=== PATIENT | female | born 1950 | race Caucasian/White ===

== ENCOUNTER 2016-05-02 12:29 | Inpatient (IN) | payer BC, OTHER ==
[~2016-05-02] VITALS: Ht 167.6 cm; Wt 56.7 kg
[2016-05-02] MEDS ORDERED: OXYC5TAB PO (12:47)
[2016-05-02] MEDS ORDERED: TOPI50TA16 PO (12:47)
[2016-05-02] MEDS ORDERED: VITATAB19 PO (12:47)
[2016-05-02] MEDS ORDERED: LEVO112T2 PO (12:47)
[2016-05-02] MEDS ORDERED: CHOL1TAB42 PO (12:47)
[2016-05-02] MEDS ORDERED: SUMA50TA15 PO (12:47)
[2016-05-02] MEDS ORDERED: B-COTAB18 PO (12:47)
[2016-05-02] MEDS ORDERED: FRCT/ PO (12:47)
[2016-05-02] MEDS ORDERED: PARO10TA3 PO (12:47)
[2016-05-02] MEDS ORDERED: VERA1TAB PO (12:47)
[2016-05-02] MEDS ORDERED: DOCO1CAP10 PO (12:47)
--- NOTE | 2016-05-02 13:22 | EMERGENCY ROOM VISIT NOTE ---
History First contact with patient: 13:01 Chief Complaint: SHORTNESS OF BREATH Stated Complaint: NAUSEA/ EDEMA Nursing Triage Summary: PT TO ROOM B12B FROM [facility] ON [address]. PT REPORTS THAT SHE HAS HAD INTERMITTENT SOB SINCE FEBRUARY. PT ALSO REPORTS INTERMITTENT NAUSEA. PT REPORTS SWELLING OF B/LE SINCE FEBRUARY. +2 PITTING EDEMA NOTED. PT HAS HISTORY OF CHF. PT DENIES CHEST PAIN. DENIES PAIN ELSEWHERE. History of Present Illness The patient is a 65 year old female who presents to the Emergency Room with complaints of shortness of breath and swelling of her lower extremities. The patient reports that she has had shortness of breath for the past 2 months. She states that she becomes short of breath with exertion or when she becomes upset. She initially thought this may be due to panic attacks, as she does have a history of panic attacks. She states that over the past 2 weeks, she has developed swelling in both of her lower legs. She reports she also has had nausea for the past few weeks intermittently. She went to a walk-in clinic today due to her symptoms and was sent here for evaluation. The patient states she has had one episode of CHF approximately 15 years ago but states that this was due to a thyroid issue, and when she was put on thyroid medication this resolved completely. She denies history of COPD or asthma. She denies any cardiac history or history of hypertension. She denies chest pain, abdominal pain, diarrhea, fevers, headache, neck pain or blood in her stools. Review of Systems A complete 10-point Review of Systems was discussed with the patient, with pertinent positives and negatives listed in the History of Present Illness. All remaining Review of Systems questions can be considered negative unless otherwise specified. Past Medical/Surgical History Medical Problems: (1) Acute CHF (congestive heart failure) (2) NSTEMI, initial episode of care Social History Smoking Status: Former Smoker Current/Historical Medications Scheduled B-Complex Vitamins (Vitamin B Complex), 1 TAB PO DAILY Cholecalciferol (Vitamin D), 5,000 UNITS PO DAILY Docosahexaenoic Acid (Dha), 200 MG PO DAILY Levothyroxine Sodium (Synthroid), 225 MCG PO DAILY Paroxetine HCl (Paroxetine), 10 MG PO PM Topiramate (Topamax), 50 MG PO QPM Verapamil (Calan), 180 MG PO HS Vitamin A-Beta Carotene (Vitamin A), 1 TAB PO DAILY Scheduled PRN Acetamin/Butalbital/Caffeine (Fioricet), 1 TAB PO UD PRN for Migraine Oxycodone-Ibuprofen 5/400MG (Combunox), 1 TAB PO Q6H PRN for Pain Sumatriptan Succinate (Imitrex), 50 MG PO UD PRN for Migraine Allergies Coded Allergies: Latex1 -Allergic Contact Dermititis (Unverified Adverse Reaction, Intermediate, RASH, 05/02/16) Physical Exam Vital Signs Date Time Temp Pulse Resp B/P Pulse Ox O2 Delivery O2 Flow Rate FiO2 05/02/16 14:44 95 20 124/97 98 05/02/16 12:56 96 Nasal Cannula 2.0 05/02/16 12:49 95 05/02/16 12:40 93 Room Air 05/02/16 12:40 37.0 90 20 124/97 93 Room Air 05/02/16 12:40 93 Room Air Physical Exam VITALS: Vitals are noted on the nurse's note and reviewed by myself. Vital signs stable. GENERAL: This is a 65-year-old female, in no acute distress, nondiaphoretic, well-developed well-nourished. SKIN: Capillary reflex less than 2 seconds. HEENT: Normocephalic. PERRLA. EOMI. Nares patent. Mucous membranes moist. Neck is supple without nuchal rigidity. HEART: Regular rate and rhythm without murmurs gallops or rubs. LUNGS: Decreased breath sounds throughout. Mild wheezing bilaterally. ABDOMEN: Positive bowel sounds x 4. Soft, nontender to palpation. MUSCULOSKELETAL: 2+ pitting edema bilaterally. NEURO: Patient was alert and oriented to person place and time. Medical Decision & Procedures ER Provider Diagnostic Interpretation: SINGLE VIEW CHEST FINDINGS: An AP, portable, upright chest radiograph is obtained. No prior studies are available for comparison at the time of dictation. The examination is degraded by portable technique and patient rotation. The heart is enlarged and there is atherosclerotic calcification of the thoracic aorta. There is pulmonary vascular congestion and mild interstitial edema. Layering pleural effusions are identified with bibasilar consolidation. No pneumothorax is seen. The skeletal structures are osteopenic. The bony thorax is grossly intact. A benign-appearing sclerotic lesion is present in the right humeral head and neck. IMPRESSION: 1. Cardiomegaly with evidence of congestive failure and interstitial edema. 2. Layering pleural effusions and bibasilar consolidation. This likely represents atelectasis. Clinical correlation will be required. Laboratory Results 05/02/16 13:46 Red Blood Count 4.42, Mean Corpuscular Volume 90.0, Mean Corpuscular Hemoglobin 29.9, Mean Corpuscular Hemoglobin Concent 33.2, Mean Platelet Volume 10.9, Neutrophils (%) (Auto) 83.5, Lymphocytes (%) (Auto) 7.8, Monocytes (%) (Auto) 8.2, Eosinophils (%) (Auto) 0.1, Basophils (%) (Auto) 0.1, Neutrophils # (Auto) 12.23, Lymphocytes # (Auto) 1.15, Monocytes # (Auto) 1.21, Eosinophils # (Auto) 0.01, Basophils # (Auto) 0.02 05/02/16 13:46 Test 05/02/16 13:46 05/02/16 15:07 05/02/16 16:11 White Blood Count 14.67 K/uL (4.8-10.8) Red Blood Count 4.42 M/uL (4.2-5.4) Hemoglobin 13.2 g/dL (12.0-16.0) Hematocrit 39.8 % (37-47) Mean Corpuscular Volume 90.0 fL (80-100) Mean Corpuscular Hemoglobin 29.9 pg (25-34) Mean Corpuscular Hemoglobin Concent 33.2 g/dl (32-36) Platelet Count 204 K/uL (130-400) Mean Platelet Volume 10.9 fL (7.4-10.4) Neutrophils (%) (Auto) 83.5 % Lymphocytes (%) (Auto) 7.8 % Monocytes (%) (Auto) 8.2 % Eosinophils (%) (Auto) 0.1 % Basophils (%) (Auto) 0.1 % Neutrophils # (Auto) 12.23 K/uL (1.4-6.5) Lymphocytes # (Auto) 1.15 K/uL (1.2-3.4) Monocytes # (Auto) 1.21 K/uL (0.11-0.59) Eosinophils # (Auto) 0.01 K/uL (0-0.5) Basophils # (Auto) 0.02 K/uL (0-0.2) RDW Standard Deviation 51.0 fL (36.4-46.3) RDW Coefficient of Variation 15.5 % (11.5-14.5) Immature Granulocyte % (Auto) 0.3 % Immature Granulocyte # (Auto) 0.05 K/uL (0.00-0.02) Prothrombin Time 13.6 SECONDS (9.0-12.0) Prothromb Time International Ratio 1.3 (0.9-1.1) Activated Partial Thromboplast Time 26.6 SECONDS (21.0-31.0) Partial Thromboplastin Ratio 1.0 Anion Gap 11.0 mmol/L (3-11) Est Creatinine Clear Calc Drug Dose 46.9 ml/min Estimated GFR () 68.5 Estimated GFR (Non- 59.1 BUN/Creatinine Ratio 21.7 (10-20) Calcium Level 9.3 mg/dl (8.5-10.1) Magnesium Level 1.7 mg/dl (1.8-2.4) Total Bilirubin 0.9 mg/dl (0.2-1) Aspartate Amino Transf (AST/SGOT) 24 U/L (15-37) Alanine Aminotransferase (ALT/SGPT) 43 U/L (12-78) Alkaline Phosphatase 98 U/L (45-117) Pro-B-Type Natriuretic Peptide > 74816 pg/ml (0-900) Total Protein 6.4 gm/dl (6.4-8.2) Albumin 3.1 gm/dl (3.4-5.0) Globulin 3.3 gm/dl (2.5-4.0) Albumin/Globulin Ratio 0.9 (0.9-2) Thyroid Stimulating Hormone (TSH) 1.300 uIu/ml (0.300-4.500) Free Thyroxine 1.18 ng/dl (0.80-1.60) Creatine Kinase MB Ratio (0-3.0) Medications Administered Medications (Trade) Dose Ordered Sig/Joann Route Start Time Stop Time Status Last Admin Dose Admin Potassium Chloride (Klor-Con M10) 40 meq STK-MED ONCE .ROUTE 05/02/16 15:45 05/02/16 15:47 DC 05/02/16 15:59 40 MEQ Magnesium Sulfate (Magnesium Sulfate) 1 gm STK-MED ONCE .ROUTE 05/02/16 15:46 05/02/16 15:47 DC 05/02/16 15:58 1 GM Medical Decision Differential diagnosis includes pneumonia, upper respiratory infection, congestive heart failure, COPD, acute coronary syndrome, among others. 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 The patient was evaluated as above. Labs were drawn and IV access was obtained. Imaging studies were performed and read by radiology as above. The patient was reassessed multiple times during their stay in the emergency department and remained in stable condition. The patient is a 65-year-old female who presents today complaining of shortness of breath and lower extremity edema. The patient's oxygen saturations were dropping to 80% on room air and she was placed on 2 L of oxygen. The patient does not use any oxygen at home. Her presentation is concerning for congestive heart failure. 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 Labs revealed a leukocytosis of unclear significance. No concerning anemia. The patient is hypokalemic. Her BNP is significantly elevated and her troponin is elevated as well. EKG was performed and does not reveal any acute ischemic changes. Chest x-ray showed evidence of congestive heart failure. The patient will be admitted for further evaluation. Case was discussed with Dr. Neal, ED attending physician, who agreed with my assessment and treatment plan. Case was discussed with the [facility] hospitalist, who agreed to evaluate the patient. Impression Primary Impression: Congestive heart failure Additional Impression: Hypokalemia Departure Information Referrals Manuelito Marie M.D. (PCP) Patient Instructions My [facility] Problem Qualifiers Primary Impression: Congestive heart failure Congestive heart failure type: unspecified congestive heart failure type Congestive heart failure chronicity: acute Qualified Codes: I50.9 - Heart failure, unspecified
--- NOTE | 2016-05-02 13:31 | DIAGNOSTIC IMAGING REPORT ---
SINGLE VIEW CHEST CLINICAL HISTORY: Dyspnea. Lower extremity edema. FINDINGS: An AP, portable, upright chest radiograph is obtained. No prior studies are available for comparison at the time of dictation. The examination is degraded by portable technique and patient rotation. The heart is enlarged and there is atherosclerotic calcification of the thoracic aorta. There is pulmonary vascular congestion and mild interstitial edema. Layering pleural effusions are identified with bibasilar consolidation. No pneumothorax is seen. The skeletal structures are osteopenic. The bony thorax is grossly intact. A benign-appearing sclerotic lesion is present in the right humeral head and neck. IMPRESSION: 1. Cardiomegaly with evidence of congestive failure and interstitial edema. 2. Layering pleural effusions and bibasilar consolidation. This likely represents atelectasis. Clinical correlation will be required. Electronically signed by: Panfilo Lugo M.D. 05/02/2016 1:30 PM Dictated Date/Time: 05/02/2016 1:29 PM
[2016-05-02 13:55] LABS: BASO % 0.1 %; BASO ABS # 0.02 K/uL (0-0.2); COMPLETE YES; EOS % 0.1 %; HEMATOCRIT 39.8 % (37-47); IG% 0.3 %; LYMPH % 7.8 %; LYMPH ABS # 1.15 K/uL (1.2-3.4); MEAN CORPUSCULAR HEMOGLOBIN 29.9 pg (25-34); MEAN CORPUSCULAR HGB CONC 33.2 g/dl (32-36); MEAN PLATELET VOLUME 10.9 fL (7.4-10.4); MONO % 8.2 %; NEUT % 83.5 %; PLATELET COUNT 204 K/uL (130-400); RED BLOOD COUNT 4.42 M/uL (4.2-5.4); WHITE BLOOD COUNT 14.67 K/uL (4.8-10.8)
[2016-05-02 14:09] LABS: INR 1.3 (0.9-1.1); PROTHROMBIN TIME (PATIENT) 13.6 SECONDS (9.0-12.0)
[2016-05-02 14:13] LABS: ALT/SGPT 43 U/L (12-78); AST/SGOT 24 U/L (15-37); BLOOD UREA NITROGEN 22 mg/dl (7-18); BUN/CREATININE RATIO 21.7 (10-20); CALCIUM 9.3 mg/dl (8.5-10.1); CARBON DIOXIDE 23 mmol/L (21-32); CHLORIDE 104 mmol/L (98-107); GLUCOSE 104 mg/dl (70-99); MAGNESIUM 1.7 mg/dl (1.8-2.4); POTASSIUM 3.1 mmol/L (3.5-5.1); SODIUM 138 mmol/L (136-145)
[2016-05-02 14:42] LABS: ALB/GLOB RATIO 0.9 (0.9-2); ALKALINE PHOSPHATASE 98 U/L (45-117); CKMB/CK RATIO 4.1 (0-3.0)
[2016-05-02] MEDS ORDERED: POTASSIUM CHLORIDE 10 MEQ TABCR PO STA (15:07)
[2016-05-02] MEDS ORDERED: MAGNESIUM SULFATE 1GM / D5W 1 GM in PREMIXED IN D5W 100 ML IV STA (15:07)
[2016-05-02] MEDS ORDERED: POTASSIUM CHLORIDE 10 MEQ TABCR ONE (15:45)
[2016-05-02] MEDS ORDERED: MAGNESIUM SULFATE 1GM / D5W 1 GM BAG ONE (15:46)
[2016-05-02] MEDS ORDERED: ZOLPIDEM TARTRATE 5 MG TAB PO PRN ×2 (16:30→16:45)
[2016-05-02] MEDS ORDERED: BUTALBITAL/ACETAMIN/CAFFEINE TAB PO PRN (16:30)
[2016-05-02] MEDS ORDERED: SUMATRIPTAN SUCCINATE 50 MG TAB PO PRN (16:30)
[2016-05-02] MEDS ORDERED: MoRPHine SULFATE 2 MG/ML CARP IV PRN (16:45)
[2016-05-02] MEDS ORDERED: PROMETHAZINE HCL INJ 12.5 MG in SODIUM CHLORIDE 0.9% 50ML 50 ML IV PRN (16:45)
[2016-05-02] MEDS ORDERED: LORAZEPAM 2 MG/ML 1 ML VIAL IV PRN ×2 (16:45)
[2016-05-02] MEDS ORDERED: MAGNESIUM HYDROXIDE SUSP 30 ML UDC PO PRN (16:45)
[2016-05-02] MEDS ORDERED: BISACODYL 10 MG SUPP PR PRN (16:45)
[2016-05-02] MEDS ORDERED: DiphenhydrAMINE HCL 50 MG/ML VIAL IV PRN (16:45)
[2016-05-02] MEDS ORDERED: MoRPHine SULFATE 4 MG/ML 1 ML CARP\\VIAL IV PRN (16:45)
[2016-05-02 16:51] LABS: CKMB/CK RATIO 4.8 (0-3.0)
--- NOTE | 2016-05-02 16:51 | Medical Student: [facility] ---
Med Student History & Physical Date & Time of Service: May 02, 2016 at 16:14 Chief Complaint: Nausea and Leg Swelling Primary Care Physician: Manuelito Marie M.D. History of Present Illness Source: patient 65y/o female presents with shortness of breath that began about two months ago and has been worsening in recent weeks. The patient states that the shortness of breath is fluctuating in nature, and she does get spells lasting from 20seconds to a few minutes that are more significant. Triggers for these spells include bending over and exertion. The patient does state that she has been sleeping with more pillows at night due to feeling more short of breath when she lies flat. In the past two weeks, the patient began to have foot and lower leg swelling. She states that it has been stable and has not gotten much worse from the initial few days of presentation. The patient has also had multiple bouts of nausea which has been making her eat less. She did have some episodes of vomiting two weeks ago but has had none since. Occasionally, the patient has been having some abdominal pain located in the middle of her abdomen. The patient denies specific chest pain. 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 However, she has not had any issues with heart failure since. The patient has not been taking her synthroid on a regular basis in recent weeks. The patient lives alone with her two dogs and states that she has had decreasing ability to get around and decreased social support. The patient states that she has had increased stress in her life recently due to feeling sick and not being able to take care of her dogs like she would want to. She states that the periods of shortness of breath feel like panic attacks that she has had in the past. The patient has had depressed mood in recent weeks that she states is due to her worsening health. She denies thoughts of wanting to hurt herself. Past Medical/Surgical History 1. Retinitis Pigmentosa 2. Hypothyroid 3. Hypothyroid myxedema 4. Migraines 5. Depression/anxiety Family History Mother: cancer (colon) Social History Smoking Status: Former Smoker (quit three years ago) Smokeless Tobacco Use: No Alcohol Use: none Drug Use: none Housing status: lives alone (two dogs) Allergies Coded Allergies: Latex1 -Allergic Contact Dermititis (Unverified Adverse Reaction, Intermediate, RASH, 05/02/16) Medications Acetamin/Butalbital/Caffeine (Fioricet), 1 TAB PO UD PRN for Migraine B-Complex Vitamins (Vitamin B Complex), 1 TAB PO DAILY Cholecalciferol (Vitamin D), 5,000 UNITS PO DAILY Docosahexaenoic Acid (Dha), 200 MG PO DAILY Levothyroxine Sodium (Synthroid), 225 MCG PO DAILY Oxycodone-Ibuprofen 5/400MG (Combunox), 1 TAB PO Q6H PRN for Pain Paroxetine HCl (Paroxetine), 10 MG PO PM Sumatriptan Succinate (Imitrex), 50 MG PO UD PRN for Migraine Topiramate (Topamax), 50 MG PO QPM Verapamil (Calan), 180 MG PO HS Vitamin A-Beta Carotene (Vitamin A), 1 TAB PO DAILY Review of Systems Constitutional: + chills (fever and chills during episodes of Shortness of breath), + fatigue, + weakness Eyes: No eye pain, No redness ENT: No hearing loss, No sore throat Respiratory: + dyspnea at rest, + dyspnea on exertion, + shortness of breath, + wheezing Cardiovascular: + edema, + palpitations, No chest pain Abdomen: + nausea, + pain (ocassional, middle of abdomen), No constipation, No diarrhea Neurologic: No memory loss, No paralysis Psychiatric: + anxiety, + depression symptoms, No substance abuse Integumentary: No itch, No new/changing skin lesions, No rash Physical Exam Vital Signs (24 Hours) Date Time Temp Pulse Resp B/P Pulse Ox O2 Delivery O2 Flow Rate FiO2 05/02/16 14:44 95 20 124/97 98 05/02/16 12:56 96 Nasal Cannula 2.0 05/02/16 12:49 95 05/02/16 12:40 93 Room Air 05/02/16 12:40 37.0 90 20 124/97 93 Room Air 05/02/16 12:40 93 Room Air Head: normocephalic, atraumatic Eyes: normal inspection, EOMI Respiratory/Chest: chest non-tender, lungs clear, + respiratory distress (mild , able to speak in full sentences), + decreased breath sounds Cardiovascular: no murmur, + tachycardia, + pertinent finding (3+ pitting edema , from feet up to knees) Abdomen/GI: normal bowel sounds, non tender, soft, no organomegaly Back: normal inspection Extremities/Musculoskelatal: no calf tenderness, + pedal edema (3+ pitting edema bilateral) Neurologic/Psych: no motor/sensory deficits, alert (slightly anxious in room, tearful when talking about her dogs), oriented x 3 Skin: normal color, warm/dry, no rash Diagnostics Laboratory Results Results Past 24 Hours Test 05/02/16 13:46 05/02/16 15:07 Range/Units White Blood Count 14.67 4.8-10.8 K/uL Red Blood Count 4.42 4.2-5.4 M/uL Hemoglobin 13.2 12.0-16.0 g/dL Hematocrit 39.8 37-47 % Mean Corpuscular Volume 90.0 80-100 fL Mean Corpuscular Hemoglobin 29.9 25-34 pg Mean Corpuscular Hemoglobin Concent 33.2 32-36 g/dl Platelet Count 204 130-400 K/uL Mean Platelet Volume 10.9 7.4-10.4 fL Neutrophils (%) (Auto) 83.5 % Lymphocytes (%) (Auto) 7.8 % Monocytes (%) (Auto) 8.2 % Eosinophils (%) (Auto) 0.1 % Basophils (%) (Auto) 0.1 % Neutrophils # (Auto) 12.23 1.4-6.5 K/uL Lymphocytes # (Auto) 1.15 1.2-3.4 K/uL Monocytes # (Auto) 1.21 0.11-0.59 K/uL Eosinophils # (Auto) 0.01 0-0.5 K/uL Basophils # (Auto) 0.02 0-0.2 K/uL RDW Standard Deviation 51.0 36.4-46.3 fL RDW Coefficient of Variation 15.5 11.5-14.5 % Immature Granulocyte % (Auto) 0.3 % Immature Granulocyte # (Auto) 0.05 0.00-0.02 K/uL Prothrombin Time 13.6 9.0-12.0 SECONDS Prothromb Time International Ratio 1.3 0.9-1.1 Activated Partial Thromboplast Time 26.6 21.0-31.0 SECONDS Partial Thromboplastin Ratio 1.0 Sodium Level 138 136-145 mmol/L Potassium Level 3.1 3.5-5.1 mmol/L Chloride Level 104 98-107 mmol/L Carbon Dioxide Level 23 21-32 mmol/L Anion Gap 11.0 3-11 mmol/L Blood Urea Nitrogen 22 7-18 mg/dl Creatinine 1.00 0.60-1.20 mg/dl Est Creatinine Clear Calc Drug Dose 46.9 ml/min Estimated GFR () 68.5 Estimated GFR (Non- 59.1 BUN/Creatinine Ratio 21.7 10-20 Random Glucose 104 70-99 mg/dl Calcium Level 9.3 8.5-10.1 mg/dl Magnesium Level 1.7 1.8-2.4 mg/dl Total Bilirubin 0.9 0.2-1 mg/dl Aspartate Amino Transf (AST/SGOT) 24 15-37 U/L Alanine Aminotransferase (ALT/SGPT) 43 12-78 U/L Alkaline Phosphatase 98 45-117 U/L Total Creatine Kinase 34 26-192 U/L Creatine Kinase MB 1.4 0.5-3.6 ng/ml Creatine Kinase MB Ratio 4.1 0-3.0 Troponin I 0.145 0-0.045 ng/ml Pro-B-Type Natriuretic Peptide > 33042 0-900 pg/ml Total Protein 6.4 6.4-8.2 gm/dl Albumin 3.1 3.4-5.0 gm/dl Globulin 3.3 2.5-4.0 gm/dl Albumin/Globulin Ratio 0.9 0.9-2 Thyroid Stimulating Hormone (TSH) 1.300 0.300-4.500 uIu/ml Free Thyroxine 1.18 0.80-1.60 ng/dl Diagnostic Radiology CXR: FINDINGS: An AP, portable, upright chest radiograph is obtained. No prior studies are available for comparison at the time of dictation. The examination is degraded by portable technique and patient rotation. The heart is enlarged and there is atherosclerotic calcification of the thoracic aorta. There is pulmonary vascular congestion and mild interstitial edema. Layering pleural effusions are identified with bibasilar consolidation. No pneumothorax is seen. The skeletal structures are osteopenic. The bony thorax is grossly intact. A benign-appearing sclerotic lesion is present in the right humeral head and neck. IMPRESSION: 1. Cardiomegaly with evidence of congestive failure and interstitial edema. 2. Layering pleural effusions and bibasilar consolidation. This likely represents atelectasis. Clinical correlation will be required. Impression Assessment and Plan DDx: Includes NSTEMI, PE, Aortic dissection, COPD, CHF exacerbation, hypothyroid myxedema coma, Pneumonia, Viral URI, Viral gastroenteritis Assessment and Plan: Given the patients recent history of leg swelling, SOB, and elevated BNP, will treat the patient for congestive heart failure. Will get an echo, serial cardiac enzymes, TSH and T4 to determine potential etiologies of the CHF. 1. Congestive heart failure: Administer Lasix IV Q6Hr and 2L O2 NC 2. Elevated troponin, abnormal ECG, potential NSTEMI: Ordered echo. Cardiology consulted. Obtain serial cardiac enzymes and repeat ECGs 3. Hypokalemia: Signs of QT elongation on ecg. Administered 40meq of potassium and 1gm of magnesium. Continue to monitor lab values 4. Hypothyroid: Obtain TSH and T4. Administer Synthroid 224mcg PO. 5. Nausea: Administer Odansetron 4mg prn for nausea 6. Anxiety/Depression: Continue with Paroxetine 10mg PO QPM. Administer Lorazepam 0.5mg IV PRN for anxiety 7. Migraines: Sumatriptan 50 mg PO prn, Topiramate 50mg daily prn, Verapimil 180mg
[2016-05-02 17:07] VITALS: BP 122/90; PULSE 91; TEMP 36.9; O2SAT 95; Ht 167.6 cm; Wt 56.7 kg
[2016-05-02] MEDS: POTASSIUM CHLR 10 MEQ / WTR 10 MEQ in PREMIXED WATER 100 ML IV SCH ×2 (18:42→20:36)
[2016-05-02] MEDS: ONDANSETRON INJ 2 MG/ML 2 ML VIAL IV PRN (19:31)
[2016-05-02] MEDS: ALBUMIN 25% 50 ML with FUROSEMIDE INJ 40 MG IV SCH ×2 (19:34)
[2016-05-02] MEDS: NITROGLYCERIN OINT 2% 1GM PACKET EXT SCH (19:34)
[2016-05-02 19:43] VITALS: BP 107/75; PULSE 97; TEMP 37.3; O2SAT 95
[2016-05-02 20:00] VITALS: O2SAT 95
[2016-05-02] MEDS: DOCUSATE SODIUM 100 MG CAP PO SCH (20:45)
[2016-05-02] MEDS: TOPIRAMATE 25 MG TAB PO SCH (20:45)
[2016-05-02] MEDS: PAROXETINE 20 MG TAB PO SCH (20:45)
[2016-05-02] MEDS ORDERED: VERAPAMIL HCL 180 MG TABCR PO SCH (21:00)
[2016-05-02] MEDS ORDERED: PNEUMOCOCCAL POLYSACCHARIDES 25 MCG/0.5 ML VIAL/SYR IM. ONE (23:15)
[2016-05-02] MEDS ORDERED: PNEUMOCOCCAL ADMINISTRATION CHARGE ONE (23:15)
[2016-05-02 23:46] VITALS: BP 107/76; PULSE 91; TEMP 36.4; O2SAT 93
[2016-05-03] VITALS (12 sets, daily range): BP systolic 90–142; BP diastolic 60–76; PULSE 69–81; TEMP 36.4–36.8; O2SAT 92–98
[2016-05-03] MEDS: ALBUMIN 25% 50 ML with FUROSEMIDE INJ 40 MG IV SCH ×6 (00:28→12:10)
[2016-05-03] MEDS: NITROGLYCERIN OINT 2% 1GM PACKET EXT SCH ×4 (00:28→17:15)
[2016-05-03 00:36] LABS: URINE APPEARANCE CLEAR (CLEAR); URINE BILIRUBIN NEG (NEG); URINE COLOR YELLOW; URINE EPITHELIAL CELL AUTO 0-5 /lpf (0-5); URINE NITRITE POS (NEG); URINE SPECIFIC GRAVITY 1.005 (1.000-1.030); UROBILINOGEN NEG (NEG); ZZUR CULT IF INDIC CLEAN CATCH YES
[2016-05-03 00:39] LABS: MANUAL MICROSCOPIC REQUIRED? NO; REVIEW REQ? NO
--- NOTE | 2016-05-03 03:34 | History and Physical ---
History & Physical Date & Time of Service: May 03, 2016 at 03:21 Chief Complaint: Acute Chf, Nstemi Primary Care Physician: Manuelito Marie M.D. History of Present Illness Source: patient The patient is a 65-year-old female who presents emergency department with shortness of breath and worsening swelling of her lower extremities over the past 2 months but in particular over the past few days. She has a history of panic attacks and thought her shortness of breath might of been related to that. She's also had nausea off and on over the past few weeks. She went to a walk-in clinic today, and was referred to emergency department for assessment. Most significant issue with fluid in the past was associated with what sounds like thyroid myxedema approximately 15 years ago which resolved when she started her on thyroid medication. She reports over the past 2 weeks she has been unable to take medications including her thyroid due to nausea. Social History Smoking Status: Never Smoker Smokeless Tobacco Use: No Alcohol Use: none Drug Use: none Marital Status: single Housing status: lives alone (two dogs) Occupational Status: retired Multi-Drug Resistant Organisms History of MDRO: No Allergies Coded Allergies: Latex1 -Allergic Contact Dermititis (Unverified Adverse Reaction, Intermediate, RASH, 05/02/16) Home Medications Scheduled B-Complex Vitamins (Vitamin B Complex), 1 TAB PO DAILY Cholecalciferol (Vitamin D), 5,000 UNITS PO DAILY Docosahexaenoic Acid (Dha), 200 MG PO DAILY Levothyroxine Sodium (Synthroid), 225 MCG PO DAILY Paroxetine HCl (Paroxetine), 10 MG PO PM Topiramate (Topamax), 50 MG PO QPM Verapamil (Calan), 180 MG PO HS Vitamin A-Beta Carotene (Vitamin A), 1 TAB PO DAILY Scheduled PRN Acetamin/Butalbital/Caffeine (Fioricet), 1 TAB PO UD PRN for Migraine Oxycodone-Ibuprofen 5/400MG (Combunox), 1 TAB PO Q6H PRN for Pain Sumatriptan Succinate (Imitrex), 50 MG PO UD PRN for Migraine Review of Systems The patient denies vision change, hearing change, sore throat, fevers, chills, sweats, vomiting, abdominal pain, pelvic pain, blood in urine or stool, dysuria , urinary frequency or urgency, memory loss, rash, abnormal bruising or bleeding, imbalance, focal weakness, night sweats, or allergy symptoms. The review of systems is otherwise negative other than for that already noted above, and at least 10 systems have been reviewed. Physical Exam Vital Signs Date Time Temp Pulse Resp B/P Pulse Ox O2 Delivery O2 Flow Rate FiO2 05/02/16 23:46 36.4 91 19 107/76 93 Nasal Cannula 2.0 05/02/16 20:00 95 Room Air 2.0 05/02/16 19:43 37.3 97 16 107/75 95 05/02/16 17:07 36.9 91 20 122/90 95 Room Air 05/02/16 14:44 95 20 124/97 98 05/02/16 12:56 96 Nasal Cannula 2.0 05/02/16 12:49 95 05/02/16 12:40 93 Room Air 05/02/16 12:40 37.0 90 20 124/97 93 Room Air 05/02/16 12:40 93 Room Air The patient is awake, alert and oriented 3, looks chronically ill and fatigued , lying in bed and in no acute distress. HEENT--PERRL, EOMI, mucous membranes and oropharynx dry. Neck--supple, no JVD or bruits, thyroid normal, trachea midline, no adenopathy. Heart--normal S1 and S2, no extra beats, no murmurs, rubs or gallops. Lungs--clear bilaterally with good air movement, no respiratory distress, no accessory muscle use. Abdomen--normal bowel sounds and soft, nontender and nondistended, no hernias or masses, no organomegaly. Extremities--no cyanosis, clubbing. There is bilaterally 4+ pitting edema in lower extremities, and 1+ pitting edema in upper extremities. There are good distal pulses b/l. Dermatologic--normal skin turgor, normal color, warm and dry, no abnormal lymph nodes, no rash. Neurologic--cranial nerves II through XII grossly intact, motor and sensory examination normal. Rheumatologic--decreased range of motion due to edema. Psychiatric--normal affect. Diagnostics Laboratory Results Results Past 24 Hours Test 05/02/16 13:46 05/02/16 16:11 05/02/16 23:18 05/02/16 23:50 Range/Units White Blood Count 14.67 4.8-10.8 K/uL Red Blood Count 4.42 4.2-5.4 M/uL Hemoglobin 13.2 12.0-16.0 g/dL Hematocrit 39.8 37-47 % Mean Corpuscular Volume 90.0 80-100 fL Mean Corpuscular Hemoglobin 29.9 25-34 pg Mean Corpuscular Hemoglobin Concent 33.2 32-36 g/dl Platelet Count 204 130-400 K/uL Mean Platelet Volume 10.9 7.4-10.4 fL Neutrophils (%) (Auto) 83.5 % Lymphocytes (%) (Auto) 7.8 % Monocytes (%) (Auto) 8.2 % Eosinophils (%) (Auto) 0.1 % Basophils (%) (Auto) 0.1 % Neutrophils # (Auto) 12.23 1.4-6.5 K/uL Lymphocytes # (Auto) 1.15 1.2-3.4 K/uL Monocytes # (Auto) 1.21 0.11-0.59 K/uL Eosinophils # (Auto) 0.01 0-0.5 K/uL Basophils # (Auto) 0.02 0-0.2 K/uL RDW Standard Deviation 51.0 36.4-46.3 fL RDW Coefficient of Variation 15.5 11.5-14.5 % Immature Granulocyte % (Auto) 0.3 % Immature Granulocyte # (Auto) 0.05 0.00-0.02 K/uL Prothrombin Time 13.6 9.0-12.0 SECONDS Prothromb Time International Ratio 1.3 0.9-1.1 Activated Partial Thromboplast Time 26.6 21.0-31.0 SECONDS Partial Thromboplastin Ratio 1.0 Sodium Level 138 136-145 mmol/L Potassium Level 3.1 3.5-5.1 mmol/L Chloride Level 104 98-107 mmol/L Carbon Dioxide Level 23 21-32 mmol/L Anion Gap 11.0 3-11 mmol/L Blood Urea Nitrogen 22 7-18 mg/dl Creatinine 1.00 0.60-1.20 mg/dl Est Creatinine Clear Calc Drug Dose 46.9 ml/min Estimated GFR () 68.5 Estimated GFR (Non- 59.1 BUN/Creatinine Ratio 21.7 10-20 Random Glucose 104 70-99 mg/dl Calcium Level 9.3 8.5-10.1 mg/dl Magnesium Level 1.7 1.8-2.4 mg/dl Total Bilirubin 0.9 0.2-1 mg/dl Aspartate Amino Transf (AST/SGOT) 24 15-37 U/L Alanine Aminotransferase (ALT/SGPT) 43 12-78 U/L Alkaline Phosphatase 98 45-117 U/L Total Creatine Kinase 34 31 40 26-192 U/L Creatine Kinase MB 1.4 1.5 0.8 0.5-3.6 ng/ml Creatine Kinase MB Ratio 4.1 4.8 2.0 0-3.0 Troponin I 0.145 0.157 0.155 0-0.045 ng/ml Pro-B-Type Natriuretic Peptide > 88889 0-900 pg/ml Total Protein 6.4 6.4-8.2 gm/dl Albumin 3.1 3.4-5.0 gm/dl Globulin 3.3 2.5-4.0 gm/dl Albumin/Globulin Ratio 0.9 0.9-2 Thyroid Stimulating Hormone (TSH) 1.300 0.300-4.500 uIu/ml Free Thyroxine 1.18 0.80-1.60 ng/dl Urine Color YELLOW Urine Appearance CLEAR CLEAR Urine pH 5.0 4.5-7.5 Urine Specific [place] 1.005 1.000-1.030 Urine Protein 1+ NEG Urine Glucose (UA) NEG NEG Urine Ketones NEG NEG Urine Occult Blood 1+ NEG Urine Nitrite POS NEG Urine Bilirubin NEG NEG Urine Urobilinogen NEG NEG Urine Leukocyte Esterase TRACE NEG Urine WBC (Auto) 1-5 0-5 /hpf Urine RBC (Auto) 0-4 0-4 /hpf Urine Hyaline Casts (Auto) 1-5 0-5 /lpf Urine Epithelial Cells (Auto) 0-5 0-5 /lpf Urine Bacteria (Auto) 4+ NEG Microbiology Results 05/02/16 Urine Culture, Received Pending Diagnostic Radiology Patient Name: WHITNEY MOONEY Unit Number: [id number] Dictated: 05/02/161328 Transcribed: 05/02/161328 EV Printed Date/Time: [~ rep prt dt]/[~ rep prt tm] [~ rep ct labl] - [~ rep ct ivnm] [facility] [place] [place] [address] Dictated: 05/02/16 1329 Transcribed: 05/02/16 1329 EV Printed Date/Time: [~ rep prt dt]/[~ rep prt tm] [~ rep ct labl] - [~ rep ct ivnm] SINGLE VIEW CHEST CLINICAL HISTORY: Dyspnea. Lower extremity edema. FINDINGS: An AP, portable, upright chest radiograph is obtained. No prior studies are available for comparison at the time of dictation. The examination is degraded by portable technique and patient rotation. The heart is enlarged and there is atherosclerotic calcification of the thoracic aorta. There is pulmonary vascular congestion and mild interstitial edema. Layering pleural effusions are identified with bibasilar consolidation. No pneumothorax is seen. The skeletal structures are osteopenic. The bony thorax is grossly intact. A benign-appearing sclerotic lesion is present in the right humeral head and neck. IMPRESSION: 1. Cardiomegaly with evidence of congestive failure and interstitial edema. 2. Layering pleural effusions and bibasilar consolidation. This likely represents atelectasis. Clinical correlation will be required. Electronically signed by: Panfilo Lugo M.D. 05/02/2016 1:30 PM Dictated Date/Time: 05/02/2016 1:29 PM The status of this report is Signed. Draft = Not yet reviewed or approved by Radiologist. Signed = Reviewed and approved by Radiologist. <AttendingPhy></AttendingPhy> <FamilyPhy>Manuelito Marie M.D.</FamilyPhy> < PrimaryPhy>Manuelito Marie M.D.</PrimaryPhy> <UnitNumber>[id number]</ UnitNumber> <VisitNumber>[id number]</VisitNumber> <PatientName>WHITNEY MOONEY</PatientName> <DateOfBirth>1950</DateOfBirth> <Location>C.EDB< /Location> <ServiceDate>05/02/16</ServiceDate> <MNE>ESINDI</MNE> <OrderingPhy> Jes Kapoor PA-C</OrderingPhy> <OrderingPhyMNE>f rep ord dr nichole</OrderingPhyMNE > <DictatingPhyMNE>f rep dict dr nichole</DictatingPhyMNE> <CCListMNE>f rep ct dayanara</ CCListMNE> <AdmittingPhyMNE>f pt admit dr nichole</AdmittingPhyMNE> <AttendingPhyMNE >f pt attend dr nichole</AttendingPhyMNE> <ConsultingPhyMNE>f pt consult dr nichole</ConsultingPhyMNE> <FamilyPhyMNE>f pt fam dr nichole</FamilyPhyMNE> <OtherPhyMNE>f pt other dr nichole</OtherPhyMNE> < PrimaryPhyMNE>f pt prim care dr nichole</PrimaryPhyMNE> <ReferringPhyMNE>f pt referring dr nichole</ReferringPhyMNE> EKG EKG shows normal sinus rhythm at 99 bpm, left axis deviation, incomplete left bundle branch block, long QT, minimal ST elevation V1 to V 3. Impression Assessment and Plan CHF/NSTEMI/anasarca/hypokalemia/hypomagnesemia/hypoalbuminemia--the patient will be admitted to the telemetry unit, for serial cardiac enzymes, cardiac rhythm monitoring, and a 2-D echocardiogram with Dopplers. We'll place on albumin with Lasix IV every 6 hours for 4 doses,. Replace both potassium and magnesium orally and IV. Follow serial EKG. Consult cardiology. Blood pressures too low to support nitroglycerin at this time. Migraine headache--continue verapamil 180 mg by mouth at bedtime, Topamax 50 mg by mouth every afternoon, Fioricet when necessary, Imitrex when necessary. Hypothyroidism/history of thyroid myxedema--resume levothyroxine sodium at 225 g by mouth daily. Anxiety/depression--continue Paxil 10 mg by mouth daily. Level of Care Telemetry Advanced Directives Existing Advance Directive: No Existing Living Will: No Existing Power of Tomato Grader: No Resuscitation Status FULL RESUSCITATION VTE Prophylaxis VTE Risk Assessment Done? Y/N: Yes Risk Level: Moderate Given or contraindicated: SCD's
[2016-05-03] MEDS: ACETAMINOPHEN 325 MG TAB PO PRN ×2 (05:48→20:19)
[2016-05-03] MEDS: LEVOTHYROXINE 112 MCG TAB PO SCH (05:49)
[2016-05-03 07:46] LABS: BASO % 0.2 %; BASO ABS # 0.02 K/uL (0-0.2); COMPLETE YES; EOS % 0.1 %; HEMATOCRIT 35.4 % (37-47); IG% 0.3 %; LYMPH % 10.9 %; LYMPH ABS # 1.45 K/uL (1.2-3.4); MEAN CELL VOLUME 90.5 fL (80-100); MEAN CORPUSCULAR HEMOGLOBIN 29.7 pg (25-34); MEAN CORPUSCULAR HGB CONC 32.8 g/dl (32-36); MEAN PLATELET VOLUME 10.7 fL (7.4-10.4); MONO % 9.4 %; NEUT % 79.1 %; PLATELET COUNT 191 K/uL (130-400); RED BLOOD COUNT 3.91 M/uL (4.2-5.4); WHITE BLOOD COUNT 13.26 K/uL (4.8-10.8)
[2016-05-03 07:50] LABS: INR 1.3 (0.9-1.1); PARTIAL THROMBOPLASTIN RATIO 1.2; PROTHROMBIN TIME (PATIENT) 13.7 SECONDS (9.0-12.0)
[2016-05-03] MEDS: VITAMIN B COMPLEX TAB PO SCH (08:03)
[2016-05-03] MEDS: DOCUSATE SODIUM 100 MG CAP PO SCH ×2 (08:03→21:05)
[2016-05-03] MEDS: CHOLECALCIFEROL 1000 INTER.UNIT TAB PO SCH (08:04)
[2016-05-03 08:07] LABS: BUN/CREATININE RATIO 18.2 (10-20); CALCIUM 8.8 mg/dl (8.5-10.1); CREATININE 1.2 mg/dl (0.60-1.20); MAGNESIUM 1.8 mg/dl (1.8-2.4); POTASSIUM 3.5 mmol/L (3.5-5.1)
[2016-05-03 08:15] LABS: CKMB/CK RATIO 2.5 (0-3.0)
[2016-05-03] MEDS ORDERED: [UNRECOGNIZED DRUG - OTHER] PO SCH (09:00)
[2016-05-03] MEDS ORDERED: DOCOSAHEXAENOIC ACID 200 MG PO SCH (09:00)
[2016-05-03] MEDS: CEPHALEXIN MONOHYDRATE 500 MG CAP PO SCH ×2 (09:04→20:10)
--- NOTE | 2016-05-03 09:15 | ECHOCARDIOGRAM REPORT ---
*NOTICE TO RECEIVING CONSTITUTION PARTY AGENCY This information is strictly Confidential and protected under [place] law. [place] law prohibits you from making any further disclosure of this information unless further disclosure is expressly permitted by the written consent of the person to whom it pertains or is authorized by law. A general authorization for the release of medical or other information is not sufficient for this purpose. Hospital accepts no responsibility if the information is made available to any other person, INCLUDING THE PATIENT. Interpretation Summary * Name: WHITNEY MOONEY Study Date: 05/03/2016 08:17 AM BP: 106/69 mmHg * Patient Location: C.2T\S\S237\S\1 HR: 63 * : 1950 (M/d/yyyy) Gender: Female Height: 66 in * Age: 65 yrs Ethnicity: [place] Weight: 116 lb * Ordering Physician: Finn Thakur * Referring Physician: No Doctor, Assigned * Performed By: Carmelina Palomares RCS * * Reason For Study: NSTEMI * BSA: 1.6 m2 * -- Conclusions -- * 1. Moderately dilated LV. Mild concentric LVH. * 2. Severe global LV dysfunction. LVEF 15-20%. * 3. Mildly dilated RV with mild RV dysfunction. * 4. Mild mitral regurgitation. Mild TR * 5. Borderline Pulmonary hypertension (Est PASP 35-40 mmHg). Elevated CVP (Est RA 15 mmHg). * 6. Large left pleural effusion. * 7. No prior studies for comparison. Procedure Details * A complete two-dimensional transthoracic echocardiogram was performed (2D, M-mode, Doppler and color flow Doppler). Left Ventricle * The left ventricle is moderately dilated. * There is mild concentric left ventricular hypertrophy. * Ejection Fraction = 15-20%. * There is severe global hypokinesis of the left ventricle. Right Ventricle * The right ventricle is mildly dilated. * The right ventricular systolic function is mildly reduced. Atria * The left atrial size is normal. * The right atrium is severely dilated. Mitral Valve * The mitral valve leaflets appear thickened, but open well. * There is mild mitral regurgitation. Tricuspid Valve * The tricuspid valve is not well visualized, but is grossly normal. * There is mild tricuspid regurgitation. * Borderline Pulmonary Hypertension (Estimated PASP 35-40 mmHg). Aortic Valve * The aortic valve opens well. * The aortic valve is tricuspid. The leaflet thickness if normal. There is no aortic stenosis, and no significant insufficiency. * No hemodynamically significant valvular aortic stenosis. * There is no significant aortic regurgitation. Pulmonic Valve * The pulmonary valve is inadequately visualized, but the Doppler data is adequate for interpretation. * There is no pulmonic valvular stenosis. * Trace pulmonic valvular regurgitation. Great Vessels * The aortic root and proximal ascending aorta are normal sized. Pericardium/Pleural * Trace pericardial effusion * Large left pleural effusion. Great Vessels * Dilated inferior vena cava with reduced collapsability with sniff indicates an elevated right atrial pressure of 15 mmHg MMode 2D Measurements and Calculations IVSd 1.2 cm IVSs 1.3 cm LVIDd 5.9 cm LVIDs 5.3 cm LVPWd 1.3 cm LVPWs 1.6 cm IVS/LVPW 0.94 FS 9.7 % EDV(Teich) 172.5 ml ESV(Teich) 136.5 ml EF(Teich) 20.9 % EDV(cubed) 204.3 ml ESV(cubed) 150.5 ml EF(cubed) 26.3 % % IVS thick 8.7 % % LVPW thick 25.0 % LV mass(C)d 316.3 grams LV mass(C)dI 199.4 grams/m\S\2 LV mass(C)s 335.5 grams LV mass(C)sI 211.4 grams/m\S\2 SV(Teich) 36.0 ml SI(Teich) 22.7 ml/m\S\2 SV(cubed) 53.8 ml SI(cubed) 33.9 ml/m\S\2 Ao root diam 3.8 cm Ao root area 11.3 cm\S\2 ACS 2.0 cm LA dimension 4.9 cm LA/Ao 1.3 LVOT diam 2.1 cm LVOT area 3.4 cm\S\2 LVAd ap4 37.7 cm\S\2 LVLd ap4 8.1 cm EDV(MOD-sp4) 142.2 ml EDV(sp4-el) 149.0 ml LVAs ap4 33.1 cm\S\2 LVLs ap4 8.2 cm ESV(MOD-sp4) 109.9 ml ESV(sp4-el) 114.0 ml EF(MOD-sp4) 22.7 % EF(sp4-el) 23.5 % LVAd ap2 46.7 cm\S\2 LVLd ap2 8.9 cm EDV(MOD-sp2) 200.2 ml EDV(sp2-el) 207.4 ml LVAs ap2 41.6 cm\S\2 LVLs ap2 8.6 cm ESV(MOD-sp2) 164.3 ml ESV(sp2-el) 171.9 ml EF(MOD-sp2) 17.9 % EF(sp2-el) 17.1 % LVLd %diff 9.2 % EDV(MOD-bp) 177.7 ml LVLs %diff 4.6 % ESV(MOD-bp) 136.2 ml EF(MOD-bp) 23.3 % SV(MOD-sp4) 32.3 ml SI(MOD-sp4) 20.3 ml/m\S\2 SV(MOD-sp2) 35.9 ml SI(MOD-sp2) 22.6 ml/m\S\2 SV(MOD-bp) 41.5 ml SI(MOD-bp) 26.1 ml/m\S\2 SV(sp4-el) 35.0 ml SI(sp4-el) 22.0 ml/m\S\2 SV(sp2-el) 35.5 ml SI(sp2-el) 22.4 ml/m\S\2 Doppler Measurements and Calculations MV E max jose 98.1 cm/sec MV P1/2t max jose 91.8 cm/sec MV P1/2t 45.9 msec MVA(P1/2t) 4.8 cm\S\2 MV dec slope 585.5 cm/sec\S\2 MV dec time 0.17 sec MR max jose 344.9 cm/sec MR max PG 48.1 mmHg TR max jose 226.8 cm/sec
[2016-05-03] MEDS: ONDANSETRON INJ 2 MG/ML 2 ML VIAL IV PRN (09:47)
--- NOTE | 2016-05-03 12:35 | Progress Note ---
Subjective Date of Service: May 03, 2016. Subjective Pt evaluation today including: conversation w/ patient, conversation w/ family , physical exam, chart review, lab review, review of studies, review of inpatient medication list Sitting up in bed, Feeling better , no other complaint lower extremity still severe swelling Problem List Medical Problems: (1) Congestive heart failure Status: Acute (2) Hypokalemia Status: Acute Review of Systems Constitutional: + fatigue, + weakness, No chills, No fever, No problem reported , No sweats, No weight loss Eyes: No diplopia, No discharge, No eye pain, No redness, No worsening of vision ENT: No dental problems, No hearing loss, No nasal symptoms, No sore throat, No tinnitus, No trouble swallowing, No unusual epistaxis Respiratory: + shortness of breath, No cough, No dyspnea at rest, No dyspnea on exertion, No hemoptysis, No sputum, No wheezing Cardiac: + edema (2+), No PND, No chest pain, No claudication, No orthopnea, No palpitations Abdomen: No constipation, No diarrhea, No nausea, No pain, No vomiting Musculoskeletal: + swelling, No calf pain, No joint pain, No muscle pain Female : No abnormal vaginal bleeding, No dysuria, No hematuria, No incontinence, No urinary frequency, No vaginal discharge Neurologic: No balance problems, No memory loss, No numbness/tingling, No paralysis, No vertigo, No weakness Psychiatric: No anhedonism, No anxiety, No depression symptoms, No insomnia, No substance abuse Heme: No abnormal bleeding/bruising, No clotting problems, No night sweats, No swollen lymph nodes Endo: No excessive thirst, No excessive urination, No fatigue Skin: No bleeding, No color change, No itch, No new/changing skin lesions, No rash Objective Vital Signs Date Time Temp Pulse Resp B/P Pulse Ox O2 Delivery O2 Flow Rate FiO2 05/03/16 11:39 36.8 69 18 109/63 96 05/03/16 08:00 96 Room Air 2.0 05/03/16 07:59 36.8 76 20 142/76 98 05/03/16 04:00 95 Room Air 2.0 05/03/16 03:14 36.4 81 22 106/69 95 Room Air 05/03/16 00:01 93 Room Air 2.0 05/02/16 23:46 36.4 91 19 107/76 93 Nasal Cannula 2.0 05/02/16 20:00 95 Room Air 2.0 05/02/16 19:43 37.3 97 16 107/75 95 05/02/16 17:07 36.9 91 20 122/90 95 Room Air 05/02/16 14:44 95 20 124/97 98 05/02/16 12:56 96 Nasal Cannula 2.0 05/02/16 12:49 95 05/02/16 12:40 93 Room Air 05/02/16 12:40 37.0 90 20 124/97 93 Room Air 05/02/16 12:40 93 Room Air Physical Exam General Appearance: WD/WN, no apparent distress, + thin, + pertinent finding ( pale, chronically ill-looking) Eyes: normal inspection, PERRL, EOMI, sclerae normal ENT: normal ENT inspection, hearing grossly normal, pharynx normal Neck: supple, no adenopathy, thyroid normal, no JVD, no carotid bruits, trachea midline Respiratory/Chest: chest non-tender, normal breath sounds, no respiratory distress, no accessory muscle use, + decreased breath sounds Cardiovascular: regular rate, rhythm, no gallop, no JVD, no murmur Abdomen: normal bowel sounds, non tender, soft, no organomegaly, no pulsatile mass Extremities: normal range of motion, non-tender, normal inspection, no pedal edema, no calf tenderness, normal capillary refill, pelvis stable, + swelling (3 +) Neurologic/Psychiatric: four slide operator II-XII nml as tested, no motor/sensory deficits, alert, normal mood/affect, oriented x 3 Skin: normal color, warm/dry, no rash Lymphatic: no adenopathy Laboratory Results Last 24 Hours Test 05/02/16 13:46 05/02/16 16:11 05/02/16 23:18 05/02/16 23:50 White Blood Count 14.67 K/uL Red Blood Count 4.42 M/uL Hemoglobin 13.2 g/dL Hematocrit 39.8 % Mean Corpuscular Volume 90.0 fL Mean Corpuscular Hemoglobin 29.9 pg Mean Corpuscular Hemoglobin Concent 33.2 g/dl Platelet Count 204 K/uL Mean Platelet Volume 10.9 fL Neutrophils (%) (Auto) 83.5 % Lymphocytes (%) (Auto) 7.8 % Monocytes (%) (Auto) 8.2 % Eosinophils (%) (Auto) 0.1 % Basophils (%) (Auto) 0.1 % Neutrophils # (Auto) 12.23 K/uL Lymphocytes # (Auto) 1.15 K/uL Monocytes # (Auto) 1.21 K/uL Eosinophils # (Auto) 0.01 K/uL Basophils # (Auto) 0.02 K/uL RDW Standard Deviation 51.0 fL RDW Coefficient of Variation 15.5 % Immature Granulocyte % (Auto) 0.3 % Immature Granulocyte # (Auto) 0.05 K/uL Prothrombin Time 13.6 SECONDS Prothromb Time International Ratio 1.3 Activated Partial Thromboplast Time 26.6 SECONDS Partial Thromboplastin Ratio 1.0 Sodium Level 138 mmol/L Potassium Level 3.1 mmol/L Chloride Level 104 mmol/L Carbon Dioxide Level 23 mmol/L Anion Gap 11.0 mmol/L Blood Urea Nitrogen 22 mg/dl Creatinine 1.00 mg/dl Est Creatinine Clear Calc Drug Dose 46.9 ml/min Estimated GFR () 68.5 Estimated GFR (Non- 59.1 BUN/Creatinine Ratio 21.7 Random Glucose 104 mg/dl Calcium Level 9.3 mg/dl Magnesium Level 1.7 mg/dl Total Bilirubin 0.9 mg/dl Aspartate Amino Transf (AST/SGOT) 24 U/L Alanine Aminotransferase (ALT/SGPT) 43 U/L Alkaline Phosphatase 98 U/L Total Creatine Kinase 34 U/L 31 U/L 40 U/L Creatine Kinase MB 1.4 ng/ml 1.5 ng/ml 0.8 ng/ml Creatine Kinase MB Ratio 4.1 4.8 2.0 Troponin I 0.145 ng/ml 0.157 ng/ml 0.155 ng/ml Pro-B-Type Natriuretic Peptide > 74391 pg/ml Total Protein 6.4 gm/dl Albumin 3.1 gm/dl Globulin 3.3 gm/dl Albumin/Globulin Ratio 0.9 Thyroid Stimulating Hormone (TSH) 1.300 uIu/ml Free Thyroxine 1.18 ng/dl Urine Color YELLOW Urine Appearance CLEAR Urine pH 5.0 Urine Specific [place] 1.005 Urine Protein 1+ Urine Glucose (UA) NEG Urine Ketones NEG Urine Occult Blood 1+ Urine Nitrite POS Urine Bilirubin NEG Urine Urobilinogen NEG Urine Leukocyte Esterase TRACE Urine WBC (Auto) 1-5 /hpf Urine RBC (Auto) 0-4 /hpf Urine Hyaline Casts (Auto) 1-5 /lpf Urine Epithelial Cells (Auto) 0-5 /lpf Urine Bacteria (Auto) 4+ Test 05/03/16 07:10 White Blood Count 13.26 K/uL Red Blood Count 3.91 M/uL Hemoglobin 11.6 g/dL Hematocrit 35.4 % Mean Corpuscular Volume 90.5 fL Mean Corpuscular Hemoglobin 29.7 pg Mean Corpuscular Hemoglobin Concent 32.8 g/dl Platelet Count 191 K/uL Mean Platelet Volume 10.7 fL Neutrophils (%) (Auto) 79.1 % Lymphocytes (%) (Auto) 10.9 % Monocytes (%) (Auto) 9.4 % Eosinophils (%) (Auto) 0.1 % Basophils (%) (Auto) 0.2 % Neutrophils # (Auto) 10.49 K/uL Lymphocytes # (Auto) 1.45 K/uL Monocytes # (Auto) 1.25 K/uL Eosinophils # (Auto) 0.01 K/uL Basophils # (Auto) 0.02 K/uL RDW Standard Deviation 51.6 fL RDW Coefficient of Variation 15.7 % Immature Granulocyte % (Auto) 0.3 % Immature Granulocyte # (Auto) 0.04 K/uL Prothrombin Time 13.7 SECONDS Prothromb Time International Ratio 1.3 Activated Partial Thromboplast Time 31.3 SECONDS Partial Thromboplastin Ratio 1.2 Sodium Level 137 mmol/L Potassium Level 3.5 mmol/L Chloride Level 103 mmol/L Carbon Dioxide Level 22 mmol/L Anion Gap 12.0 mmol/L Blood Urea Nitrogen 22 mg/dl Creatinine 1.20 mg/dl Est Creatinine Clear Calc Drug Dose 43.5 ml/min Estimated GFR () 54.9 Estimated GFR (Non- 47.4 BUN/Creatinine Ratio 18.2 Random Glucose 116 mg/dl Calcium Level 8.8 mg/dl Magnesium Level 1.8 mg/dl Total Bilirubin 1.0 mg/dl Direct Bilirubin 0.5 mg/dl Aspartate Amino Transf (AST/SGOT) 19 U/L Alanine Aminotransferase (ALT/SGPT) 33 U/L Alkaline Phosphatase 81 U/L Total Creatine Kinase 28 U/L Creatine Kinase MB 0.7 ng/ml Creatine Kinase MB Ratio 2.5 Troponin I 0.135 ng/ml Total Protein 6.0 gm/dl Albumin 3.1 gm/dl Assessment and Plan 65 year-old admitted on 05/02/2016 because of CHF/NSTEMI/anasarca/hypokalemia/ hypomagnesemia/hypoalbuminemia CHF/NSTEMI/anasarca/hypokalemia/hypomagnesemia/hypoalbuminemia Continue telemetry unit, for serial cardiac enzymes, cardiac rhythm monitoring, and a 2-D echocardiogram with Dopplers. Continue albumin with Lasix IV every 6 hours for 4 doses,. Replace both potassium and magnesium orally and IV. Follow serial EKG and in natural nice include potassium and magnesium, Consult cardiology. will start low dose of coreg, may be acei later if blood pressure tolerates, need to consider anticoagulation to prevent mural thrombosis because of severe decreased LVEF, will discuss with leaf binner echo results done today on 05/03/2016, because in below *1. Moderately dilated LV. Mild concentric LVH. * 2. Severe global LV dysfunction. LVEF 15-20%. * 3. Mildly dilated RV with mild RV dysfunction. * 4. Mild mitral regurgitation. Mild TR * 5. Borderline Pulmonary hypertension (Est PASP 35-40 mmHg). Elevated CVP (Est RA 15 mmHg). * 6. Large left pleural effusion. * 7. No prior studies for comparison. Minimal elevated troponin, likely because of demanding ischemia, we will follow- up Asymptomatic UTI with mild leukocytosis with history of the kidney infection, will give 3 days of Keflex Migraine headache--continue verapamil 180 mg by mouth at bedtime, Topamax 50 mg by mouth every afternoon, Fioricet when necessary, Imitrex when necessary. Hypothyroidism/history of thyroid myxedema--resume levothyroxine sodium at 225 g by mouth daily. TSH was checked was normal Anxiety/depression--continue Paxil 10 mg by mouth daily. Discussed with her about care plan, I did counseling about the heart failure include a fluid restriction 2 g sodium diet, Continued [facility] stay due to: multiple IV medications needed Discharge planning: home
--- NOTE | 2016-05-03 13:33 | CARDIOLOGY CONSULTATION ---
DATE OF CONSULTATION: 05/03/2016 AGE: 65. CONSULTATION REQUESTED BY: Dr. Thakur. REASON FOR CONSULTATION: Acute heart failure. HISTORY OF PRESENT ILLNESS: Ms. Reyes is a very pleasant 65-year-old woman with a history of reported heart failure in the past in the setting of hyperthyroidism who presented with 2 months of progressive shortness of breath, orthopnea, and lower extremity edema. The patient noted to be in heart failure on presentation and cardiology consulted for further management. The patient has no current outpatient editorial clerk. The patient states that approximately 15 years ago in the setting of Graves' disease was told that she had heart failure. She reports having an echocardiogram at that time which she is unsure of the results but unclear about any additional cardiac work-up. She states that she was on metoprolol and KAIT inhibitor and diuretics in the past but that her heart failure resolved with treatment of her thyroid disease and has not been treated for heart failure or seen by a editorial clerk in more than 10 years. She had been doing well during that time up until 2 months ago when noted more dyspnea with walking her dogs. She states that previously could walk 2 miles without stopping, but now is getting short of breath walking across her home. On the days prior to admission, shortness of breath was occurring at rest and was associated with significant lower extremity edema as well as orthopnea and PND. She denied any chest pain at any point. She denies any fevers or chills, denies any rashes, denies any new joint pain. Does report questionable subjective fevers but denies chills, night sweats and weight has trended up. Otherwise, no significant change to her health and has been taking her thyroid medicine as prescribed. The patient presented to the Emergency Department last night, was hemodynamically stable and satting in the high 90s on room air. She had a chest x-ray which showed cardiomegaly, interstitial edema as well as pleural effusions as well as elevated BNP greater than 35,000. She was started on IV diuretics and is negative 1.3 liters since admission. She reports that her breathing is somewhat improved since admission. PAST MEDICAL HISTORY: 1. Hyperthyroidism with Graves' disease status post therapy now with hypothyroidism, on replacement. 2. Migraine headaches. 3. Fibromyalgia. 4. Prior heart failure. SOCIAL HISTORY: Previously worked at [employer] in [employer], not working currently. Lives alone with 2 dogs denies any alcohol use. Denies any significant tobacco use. Denies any illicit drug use. ALLERGIES: SHE HAS A LATEX ALLERGY. No other medications. HOME MEDICATIONS: Include B complex vitamins, vitamin D, DHA, levothyroxine 225 mcg daily, paroxetine, Topamax, verapamil 180 mg at bedtime and vitamin A. She also takes Fioricet, Combunox, and sumatriptan p.r.n. for migraines. FAMILY HISTORY: Father had a stroke late in life but otherwise no significant history of premature cardiovascular disease. No premature or sudden cardiac . REVIEW OF SYSTEMS: Ten-point review of systems completed and otherwise negative or listed in HPI. PHYSICAL EXAMINATION: VITAL SIGNS: Temperature today is 36.3, blood pressure 142/76. She is satting 98% on room air. GENERAL: The patient appears comfortable, in no acute distress. HEENT: Her sclerae are anicteric. Oropharynx is clear. Her mucous membranes are moist. NECK: Supple. She has jugular venous distention to her ear lobe approximately 12. LUNGS: She has decreased breath sounds at the left base with few scattered crackles on the right. HEART: Regular with a 2/6 holosystolic murmur heard best at the apex. ABDOMEN: Soft, nontender, with no hepatosplenomegaly. SKIN: Warm with no significant rashes. EXTREMITIES: She has 2+ lower extremity edema up to her knees bilaterally. NEUROLOGIC: Cranial nerves II-XII are grossly intact. Remainder of exam is nonfocal. PSYCHIATRIC: She is alert and oriented x3 with appropriate mood and affect. LABORATORY DATA: White blood cell count 11.2, hemoglobin 11.6, platelets 191. Her INR is 1.2. Sodium of 135, potassium of 3.5, bicarbonate of 22, BUN of 22, creatinine of 1.2 up from 1.0 on admission, magnesium is 1.8. Troponin of 0.15, 0.16, 0.16, 0.14. UA questionable for a UTI with urine culture pending. Albumin was 3.1. LFTs within normal limits. IMAGING DATA: Chest x-ray showed cardiomegaly with interstitial edema and possible pleural effusions. EKG on presentation showed normal sinus rhythm at a rate of 100. She had occasional PVCs. There was an incomplete left bundle branch block with left axis deviation and left atrial enlargement. There was poor R-wave progression anteriorly. TELEMETRY: Telemetry reviewed and it showed sinus tachycardia with occasional PACs, PVCs. No complex arrhythmias. ECHOCARDIOGRAM: Echo reviewed from today showed severe LV dysfunction with an EF of approximately 15%, dysfunction with global. There was mild MR, mild TR, borderline pulmonary hypertension and a dilated IVC with an estimated RV pressure of 15. IMPRESSION AND PLAN: 1. Acute decompensated heart failure. 2. Dilated cardiomyopathy with severe left ventricular dysfunction. 3. Minimally elevated troponins. 4. Anemia. The patient here with new acute decompensated heart failure in the setting of severe left ventricular dysfunction. At present, the patient remains volume overloaded with evidence of systemic venous congestion and pulmonary congestion on exam. She is well perfused and agree with continued IV diuretics at this time. Continue to follow urine output, renal function, and supplement electrolytes as needed. In regards to the cause of her left ventricular dysfunction, presumably this is new over the last several months. We will need to rule out ischemic causes and plan for possible stress versus left heart catheterization at some point. However, I suspect though that this is likely a nonischemic and no easily identifiable etiology as per history. Would rule out common things including further thyroid dysfunction with full TFTs. We would check Lyme serologies, [place], iron studies. Recommend starting patient on guideline-directed medical therapy for her new cardiomyopathy including beta lubna and KAIT. Would stop patient's current verapamil as is negative inotrope and would allow for increased doses of beta lubna and KAIT. We will continue to follow patient while she is in the hospital. Thank you for allowing us to participate in the care of this patient. Please contact with any questions. REBECCA
[2016-05-03 13:58] LABS: FERRITIN 98.1 ng/ml (8.0-388.0)
[2016-05-03] MEDS ORDERED: CARVEDILOL 3.125 MG TAB PO ONE (15:00)
[2016-05-03 19:37] LABS: LYME DISEASE AB IGG NEG (NEG); LYME DISEASE AB IGM NEG (NEG)
[2016-05-03] MEDS: PAROXETINE 20 MG TAB PO SCH (21:04)
[2016-05-03] MEDS: TOPIRAMATE 25 MG TAB PO SCH (21:05)
[2016-05-04] VITALS (11 sets, daily range): BP systolic 84–119; BP diastolic 57–77; PULSE 62–75; TEMP 36.3–37.1; O2SAT 91–94
[2016-05-04] MEDS: NITROGLYCERIN OINT 2% 1GM PACKET EXT SCH ×4 (00:26→16:27)
[2016-05-04] MEDS ORDERED: PHARMACY GLYCEMIC MGMT CONSULT PRN (02:51)
[2016-05-04] MEDS: LEVOTHYROXINE 112 MCG TAB PO SCH (05:55)
[2016-05-04 05:58] LABS: BASO % 0.1 %; BASO ABS # 0.01 K/uL (0-0.2); COMPLETE YES; EOS % 0.2 %; HEMATOCRIT 35.4 % (37-47); IG% 0.2 %; MEAN CELL VOLUME 89.8 fL (80-100); MEAN CORPUSCULAR HEMOGLOBIN 29.4 pg (25-34); MEAN CORPUSCULAR HGB CONC 32.8 g/dl (32-36); MEAN PLATELET VOLUME 10.6 fL (7.4-10.4); MONO % 8.6 %; NEUT % 79.9 %; PLATELET COUNT 199 K/uL (130-400); RED BLOOD COUNT 3.94 M/uL (4.2-5.4)
[2016-05-04 06:11] LABS: INR 1.2 (0.9-1.1); PARTIAL THROMBOPLASTIN RATIO 1.2; PROTHROMBIN TIME (PATIENT) 13.3 SECONDS (9.0-12.0)
[2016-05-04 06:31] LABS: BUN/CREATININE RATIO 20.3 (10-20); CREATININE 1.3 mg/dl (0.60-1.20); MAGNESIUM 1.9 mg/dl (1.8-2.4); POTASSIUM 3.3 mmol/L (3.5-5.1)
[2016-05-04] MEDS ORDERED: POTASSIUM CHLORIDE 20 MEQ TABCR PO STA (07:50)
[2016-05-04] MEDS: LISINOPRIL 2.5 MG TAB PO SCH (08:47)
[2016-05-04] MEDS: CARVEDILOL 3.125 MG TAB PO SCH (08:48)
[2016-05-04] MEDS: DOCUSATE SODIUM 100 MG CAP PO SCH ×3 (08:48→19:57)
[2016-05-04] MEDS: VITAMIN B COMPLEX TAB PO SCH (08:49)
[2016-05-04] MEDS: CEPHALEXIN MONOHYDRATE 500 MG CAP PO SCH ×2 (08:49→19:53)
[2016-05-04] MEDS: CHOLECALCIFEROL 1000 INTER.UNIT TAB PO SCH (08:49)
[2016-05-04] MEDS: ONDANSETRON INJ 2 MG/ML 2 ML VIAL IV PRN ×3 (08:54→23:22)
[2016-05-04] MEDS ORDERED: SODIUM CHLORIDE 0.65% NA SOLN 45 ML (OCEAN) PRN (09:45)
[2016-05-04] MEDS ORDERED: NURSING VERBAL MED ORDER ONE (09:45)
--- NOTE | 2016-05-04 11:46 | Progress Note ---
Subjective Date of Service: May 04, 2016. (Claude Veras MD) Subjective Pt evaluation today including: conversation w/ patient, physical exam, chart review, lab review, review of studies Pain: denies pain PO Intake: adequate Voiding: no voiding problems Patient notes general improvement. SOB has significantly improved per patient. Lower extremity swelling is improving but not at baseline. Pt had some difficulty sleeping but mainly for back discomfort although, she states that sleeping in an upright position inb her chair as opposed to her bed likely helped her SOB. Per Telemetry, around 3:28 AM, she had episode of wide complex tachycardia with rate of 138. Event lasted 28 beats. Pt denies any symptoms of palpitation, CP, SOB, presyncope, syncope, overnight. Pt also reports headache which she attributes to Lisinopril which has been her experience in the past with the medication. (Claude Veras MD) Problem List Medical Problems: (1) Congestive heart failure Status: Acute (2) Hypokalemia Status: Acute (Claude Veras MD) Review of Systems Constitutional: + problem reported (headache), No chills, No fever Respiratory: + shortness of breath, No cough Cardiac: No chest pain, No orthopnea, No palpitations Abdomen: + nausea, No constipation, No diarrhea, No pain, No vomiting Musculoskeletal: + swelling (Bilateral LE), No calf pain Endo: + fatigue (Claude Veras MD) Medications Current Inpatient Medications Medications (Trade) Dose Ordered Sig/Joann Route Start Time Stop Time Status Last Admin Dose Admin Acetaminophen (Tylenol Tab) 650 mg Q4H PRN PO 05/02/16 16:30 06/01/16 16:29 05/03/16 20:19 650 MG Nitroglycerin (Nitroglycerin 2% Oint) 1 inch Q6 EXT 05/02/16 18:00 06/01/16 17:59 05/04/16 05:56 1 INCH Acetaminophen/ Butalbital/ Caffeine (Fioricet Tab) 1 tab DAILY PRN PO 05/02/16 16:30 06/01/16 16:29 Levothyroxine Sodium (Synthroid Tab) 224 mcg DAILYBB PO 05/03/16 06:00 06/02/16 05:59 05/04/16 05:55 224 MCG Sumatriptan Succinate (Imitrex Tab) 50 mg DAILY PRN PO 05/02/16 16:30 06/01/16 16:29 Topiramate (Topamax Tab) 50 mg QPM PO 05/02/16 21:00 06/01/16 20:59 05/03/16 21:05 50 MG Vitamin B Complex (Vitamin B Complex) 1 tab QAM PO 05/03/16 09:00 06/02/16 08:59 05/04/16 08:49 1 TAB Cholecalciferol (Vitamin D Tab) 5,000 inter.unit QAM PO 05/03/16 09:00 06/02/16 08:59 05/04/16 08:49 5,000 INTER.UNIT Paroxetine HCl (pAXil TAB) 10 mg QPM PO 05/02/16 21:00 06/01/16 20:59 05/03/16 21:04 10 MG Lorazepam (Ativan Inj) 0.5 mg Q4H PRN IV 05/02/16 16:45 06/01/16 16:44 Lorazepam (Ativan Inj) 1 mg Q4H PRN IV 05/02/16 16:45 06/01/16 16:44 Magnesium Hydroxide (Milk Of Magnesia Susp) 30 ml Q6H PRN PO 05/02/16 16:45 06/01/16 16:44 Bisacodyl (Dulcolax Supp) 10 mg DAILY PRN RI 05/02/16 16:45 06/01/16 16:44 Diphenhydramine HCl (Benadryl Inj) 25 mg Q4H PRN IV 05/02/16 16:45 06/01/16 16:44 Al Hydrox/Mg Hydrox/ Simethicone 15 ml 15 ml Q4H PRN PO 05/02/16 16:45 06/01/16 16:44 Promethazine HCl/ Sodium Chloride (Phenergan Inj/ Nss 50ml) 50.5 ml @ 202 mls/hr Q4H PRN IV 05/02/16 16:45 06/01/16 16:44 Zolpidem Tartrate (Ambien Tab) 5 mg HSZ PRN PO 05/02/16 16:45 06/01/16 16:44 Ondansetron HCl (Zofran Inj) 4 mg Q6H PRN IV 05/02/16 16:45 06/01/16 16:44 05/04/16 08:54 4 MG Docusate Sodium (coLACE CAP) 100 mg BID PO 05/02/16 21:00 06/01/16 20:59 05/04/16 08:48 100 MG Morphine Sulfate (MoRPHine SULFATE INJ) 2 mg Q2H PRN IV 05/02/16 16:45 05/16/16 16:44 Morphine Sulfate (MoRPHine SULFATE INJ) 4 mg Q2H PRN IV 05/02/16 16:45 05/16/16 16:44 Cephalexin Monohydrate (Keflex Cap) 500 mg Q12@0800,2000 PO 05/03/16 08:00 05/08/16 07:59 05/04/16 08:49 500 MG Carvedilol (Coreg Tab) 3.125 mg DAILY PO 05/04/16 09:00 06/03/16 08:59 05/04/16 08:48 3.125 MG Lisinopril (Zestril Tab) 2.5 mg QAM PO 05/04/16 09:00 06/03/16 08:59 05/04/16 08:47 2.5 MG Sodium Chloride ([place] Nasal [place]) 1 sprays Q2H PRN NA 05/04/16 09:45 06/03/16 09:44 (Claude Veras MD) Objective Vital Signs Date Time Temp Pulse Resp B/P Pulse Ox O2 Delivery O2 Flow Rate FiO2 05/04/16 08:00 92 Room Air 05/04/16 07:35 36.7 67 20 119/77 94 Nasal Cannula 2.0 05/04/16 04:00 91 Nasal Cannula 2.0 05/04/16 03:13 36.3 71 18 108/72 91 Room Air 05/04/16 00:01 92 Nasal Cannula 2.0 05/03/16 23:39 36.5 73 18 108/70 92 Room Air 05/03/16 20:00 92 Room Air 2.0 05/03/16 19:58 36.6 76 18 104/66 92 Room Air 05/03/16 15:29 36.8 74 18 90/60 94 05/03/16 15:08 98 Room Air 2.0 05/03/16 12:00 97 Room Air 2.0 05/03/16 11:39 36.8 69 18 109/63 96 (Claude Veras MD) Physical Exam General Appearance: WD/WN, no apparent distress Eyes: PERRL, EOMI Neck: supple, no carotid bruits, + JVD (5-6 cm) Respiratory/Chest: normal breath sounds, + crackles (minor crackles maxine) Cardiovascular: regular rate, rhythm, no murmur Abdomen: normal bowel sounds, non tender, soft Extremities: non-tender, no calf tenderness, + pedal edema (2+ pitting bilaterally) Neurologic/Psychiatric: alert, normal mood/affect Skin: normal color, warm/dry (Claude Veras MD) Laboratory Results Last 24 Hours Test 05/03/16 13:10 05/04/16 05:35 05/04/16 08:52 Iron Level 13 mcg/dl Total Iron Binding Capacity 290 mcg/dl Ferritin 98.1 ng/ml Vitamin B12 Level 714 pg/mL Folate > 24.00 ng/mL Lyme Disease IgG Antibody NEG Lyme Disease IgM Antibody NEG White Blood Count 11.80 K/uL Red Blood Count 3.94 M/uL Hemoglobin 11.6 g/dL Hematocrit 35.4 % Mean Corpuscular Volume 89.8 fL Mean Corpuscular Hemoglobin 29.4 pg Mean Corpuscular Hemoglobin Concent 32.8 g/dl Platelet Count 199 K/uL Mean Platelet Volume 10.6 fL Neutrophils (%) (Auto) 79.9 % Lymphocytes (%) (Auto) 11.0 % Monocytes (%) (Auto) 8.6 % Eosinophils (%) (Auto) 0.2 % Basophils (%) (Auto) 0.1 % Neutrophils # (Auto) 9.44 K/uL Lymphocytes # (Auto) 1.30 K/uL Monocytes # (Auto) 1.01 K/uL Eosinophils # (Auto) 0.02 K/uL Basophils # (Auto) 0.01 K/uL RDW Standard Deviation 50.9 fL RDW Coefficient of Variation 15.5 % Immature Granulocyte % (Auto) 0.2 % Immature Granulocyte # (Auto) 0.02 K/uL Prothrombin Time 13.3 SECONDS Prothromb Time International Ratio 1.2 Activated Partial Thromboplast Time 30.2 SECONDS Partial Thromboplastin Ratio 1.2 Sodium Level 137 mmol/L Potassium Level 3.3 mmol/L Chloride Level 101 mmol/L Carbon Dioxide Level 25 mmol/L Anion Gap 11.0 mmol/L Blood Urea Nitrogen 26 mg/dl Creatinine 1.30 mg/dl Est Creatinine Clear Calc Drug Dose 40.4 ml/min Estimated GFR () 49.9 Estimated GFR (Non- 43.0 BUN/Creatinine Ratio 20.3 Random Glucose 117 mg/dl Calcium Level 9.0 mg/dl Magnesium Level 1.9 mg/dl Total Bilirubin 0.9 mg/dl Direct Bilirubin 0.4 mg/dl Aspartate Amino Transf (AST/SGOT) 20 U/L Alanine Aminotransferase (ALT/SGPT) 34 U/L Alkaline Phosphatase 94 U/L Total Protein 6.0 gm/dl Albumin 3.1 gm/dl Free Triiodothyronine 1.24 pg/ml (Claude Veras MD) Assessment and Plan 65 yo F w/ hx of 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 CHF Exacerbation echo results from 05/03/2016 *1. Moderately dilated LV. Mild concentric LVH. * 2. Severe global LV dysfunction. LVEF 15-20%. * 3. Mildly dilated RV with mild RV dysfunction. * 4. Mild mitral regurgitation. Mild TR * 5. Borderline Pulmonary hypertension (Est PASP 35-40 mmHg). Elevated CVP (Est RA 15 mmHg). * 6. Large left pleural effusion. * 7. No prior studies for comparison. -SOB, LE Edema improving, JV elevation improved from previous day - I/O: -1235 ml net over 24, at goal of 1 L eliminated over 24 hrs -Etiology of Cardiomyopathy currently unknown, TSH Free T4 wnl, F/U Free T3, Lyme Neg, F/U [place] - Restart Lasix 40 BID - Continue to watch Cr as it has elevated slightly with diuresis to 1.3 - Continue Coreg, Recommend switching Lisinopril to Losartan tmr due to patient' s concern with headache she attributed to medication in the past Hyperlipidemia -Continue Statin Hypokalemia K 3.3 <--3.5 Agree with oral K supplementation Headache -Recommend discontinuation of Nitro patch which may contribute to headache -Plan to switch Lisinopril to Losartan tmr as stated above Continued [facility] stay due to: multiple IV medications needed Discharge planning: home (Claude Veras MD) Patient seen and examined with Dr. Veras. Agree with assessment as outline above. Briefly -- Diuresing reasonable well overnight, down ~ 1.3 L. Renal function stable Still with mild pulmonary and significant systemic venous congestion on exam. Episode of what appears to be NSVT overnight (+15 beats) Recommend -- -- Continued IV diuresis -- > suggest IV lasix 40 mg BID -- Can stop nitropast -- Continue Toprol, transition lisinopril to ARB or different KAIT -- Supplement electrolytes, K>4, Mag >2 -- follow-up NICM work-up -- additional ischemic work-up pending. (Jett Warren MD) Resident Tracking Resident Involvement: Resident Care Provided Care Provided: Adult Hospital Medicine (Claude Veras MD)
--- NOTE | 2016-05-04 11:57 | Progress Note ---
Subjective Date of Service: May 04, 2016. Subjective Pt evaluation today including: conversation w/ patient, physical exam, chart review, lab review, review of studies, conversation w/ community resource consultant, review of inpatient medication list Up and walk, but reports severe fatigue, not resting well, not sleep well, [place] lower extremity has edema and swelling Problem List Medical Problems: (1) Congestive heart failure Status: Acute (2) Hypokalemia Status: Acute Review of Systems Constitutional: + fatigue, + weakness, No chills, No fever, No problem reported , No sweats, No weight loss Eyes: No diplopia, No discharge, No eye pain, No redness, No worsening of vision ENT: No dental problems, No hearing loss, No nasal symptoms, No sore throat, No tinnitus, No trouble swallowing, No unusual epistaxis Respiratory: No cough, No dyspnea at rest, No dyspnea on exertion, No hemoptysis, No shortness of breath, No sputum, No wheezing Cardiac: + edema, No PND, No chest pain, No claudication, No orthopnea, No palpitations Abdomen: No constipation, No diarrhea, No nausea, No pain, No vomiting Musculoskeletal: No calf pain, No joint pain, No muscle pain, No swelling Female : No abnormal vaginal bleeding, No dysuria, No hematuria, No incontinence, No urinary frequency, No vaginal discharge Neurologic: No balance problems, No memory loss, No numbness/tingling, No paralysis, No vertigo, No weakness Psychiatric: No anhedonism, No anxiety, No depression symptoms, No insomnia, No substance abuse Heme: No abnormal bleeding/bruising, No clotting problems, No night sweats, No swollen lymph nodes Endo: No excessive thirst, No excessive urination, No fatigue Skin: No bleeding, No color change, No itch, No new/changing skin lesions, No rash Objective Vital Signs Date Time Temp Pulse Resp B/P Pulse Ox O2 Delivery O2 Flow Rate FiO2 05/04/16 11:49 36.7 67 20 119/77 92 Room Air 2.0 05/04/16 08:00 92 Room Air 05/04/16 07:35 36.7 67 20 119/77 94 Nasal Cannula 2.0 05/04/16 04:00 91 Nasal Cannula 2.0 05/04/16 03:13 36.3 71 18 108/72 91 Room Air 05/04/16 00:01 92 Nasal Cannula 2.0 05/03/16 23:39 36.5 73 18 108/70 92 Room Air 05/03/16 20:00 92 Room Air 2.0 05/03/16 19:58 36.6 76 18 104/66 92 Room Air 05/03/16 15:29 36.8 74 18 90/60 94 05/03/16 15:08 98 Room Air 2.0 05/03/16 12:00 97 Room Air 2.0 Physical Exam General Appearance: WD/WN, no apparent distress, + thin, + pertinent finding ( frail, very tired) Eyes: normal inspection, PERRL, EOMI, sclerae normal ENT: normal ENT inspection, hearing grossly normal, pharynx normal Neck: supple, no adenopathy, thyroid normal, no JVD, no carotid bruits, trachea midline Respiratory/Chest: chest non-tender, normal breath sounds, no respiratory distress, no accessory muscle use, + decreased breath sounds Cardiovascular: regular rate, rhythm, no gallop, no JVD, no murmur, + pertinent finding (2+ edema) Abdomen: normal bowel sounds, non tender, soft, no organomegaly, no pulsatile mass Extremities: normal range of motion, non-tender, normal inspection, no pedal edema, no calf tenderness, normal capillary refill, pelvis stable Neurologic/Psychiatric: plsql developer II-XII nml as tested, no motor/sensory deficits, alert, normal mood/affect, oriented x 3 Skin: normal color, warm/dry, no rash Lymphatic: no adenopathy Laboratory Results Last 24 Hours Test 05/03/16 13:10 05/04/16 05:35 05/04/16 08:52 Iron Level 13 mcg/dl Total Iron Binding Capacity 290 mcg/dl Ferritin 98.1 ng/ml Vitamin B12 Level 714 pg/mL Folate > 24.00 ng/mL Lyme Disease IgG Antibody NEG Lyme Disease IgM Antibody NEG White Blood Count 11.80 K/uL Red Blood Count 3.94 M/uL Hemoglobin 11.6 g/dL Hematocrit 35.4 % Mean Corpuscular Volume 89.8 fL Mean Corpuscular Hemoglobin 29.4 pg Mean Corpuscular Hemoglobin Concent 32.8 g/dl Platelet Count 199 K/uL Mean Platelet Volume 10.6 fL Neutrophils (%) (Auto) 79.9 % Lymphocytes (%) (Auto) 11.0 % Monocytes (%) (Auto) 8.6 % Eosinophils (%) (Auto) 0.2 % Basophils (%) (Auto) 0.1 % Neutrophils # (Auto) 9.44 K/uL Lymphocytes # (Auto) 1.30 K/uL Monocytes # (Auto) 1.01 K/uL Eosinophils # (Auto) 0.02 K/uL Basophils # (Auto) 0.01 K/uL RDW Standard Deviation 50.9 fL RDW Coefficient of Variation 15.5 % Immature Granulocyte % (Auto) 0.2 % Immature Granulocyte # (Auto) 0.02 K/uL Prothrombin Time 13.3 SECONDS Prothromb Time International Ratio 1.2 Activated Partial Thromboplast Time 30.2 SECONDS Partial Thromboplastin Ratio 1.2 Sodium Level 137 mmol/L Potassium Level 3.3 mmol/L Chloride Level 101 mmol/L Carbon Dioxide Level 25 mmol/L Anion Gap 11.0 mmol/L Blood Urea Nitrogen 26 mg/dl Creatinine 1.30 mg/dl Est Creatinine Clear Calc Drug Dose 40.4 ml/min Estimated GFR () 49.9 Estimated GFR (Non- 43.0 BUN/Creatinine Ratio 20.3 Random Glucose 117 mg/dl Calcium Level 9.0 mg/dl Magnesium Level 1.9 mg/dl Total Bilirubin 0.9 mg/dl Direct Bilirubin 0.4 mg/dl Aspartate Amino Transf (AST/SGOT) 20 U/L Alanine Aminotransferase (ALT/SGPT) 34 U/L Alkaline Phosphatase 94 U/L Total Protein 6.0 gm/dl Albumin 3.1 gm/dl Free Triiodothyronine 1.24 pg/ml Assessment and Plan 65 year-old admitted on 05/02/2016 because of CHF/NSTEMI/anasarca/hypokalemia/ hypomagnesemia/hypoalbuminemia Acute on chronic systolic CHF/NSTEMI/anasarca/hypokalemia/hypomagnesemia/ hypoalbuminemia cardiac rhythm monitoring, and a 2-D echocardiogram with Dopplers. Continue albumin with Lasix IV every 6 hours Replace both potassium and magnesium orally and IV. Discussed with director of consumer marketing Continue beta lubna, and KAIT inhibitor, fluid restriction, 2 g sodium diet, watch for kidney function echo results done today on 05/03/2016, because in below *1. Moderately dilated LV. Mild concentric LVH. * 2. Severe global LV dysfunction. LVEF 15-20%. * 3. Mildly dilated RV with mild RV dysfunction. * 4. Mild mitral regurgitation. Mild TR * 5. Borderline Pulmonary hypertension (Est PASP 35-40 mmHg). Elevated CVP (Est RA 15 mmHg). * 6. Large left pleural effusion. * 7. No prior studies for comparison. Minimal elevated troponin, likely because of demanding ischemia, we will follow- up Minimal elevated creatinine, will watch while on Lasix Asymptomatic gram-negative bacilli UTI with mild leukocytosis with history of the kidney infection, Continue Keflex, and follow-up culture and sensitivity Migraine headache--continue verapamil 180 mg by mouth at bedtime, Topamax 50 mg by mouth every afternoon, Fioricet when necessary, Imitrex when necessary. Low T3 level with the Hypothyroidism/history of thyroid myxedema TSH was normal and free T4 was normal continue current dose of levothyroxine sodium at 225 g by mouth daily Lyme disease was checked was negative Anxiety/depression--continue Paxil 10 mg by mouth daily, is on Ativan as needed , discussed with her to adjust the medication, she prefers to follow-up with PCP or Dr. Barros about this continue fluid restriction and 2 g sodium diet PT OT, social services manager for discharge plan Continued [facility] stay due to: multiple IV medications needed Discharge planning: home
[2016-05-04] MEDS: TOPIRAMATE 25 MG TAB PO SCH (19:53)
[2016-05-04] MEDS: PAROXETINE 20 MG TAB PO SCH (19:53)
[2016-05-04] MEDS: ACETAMINOPHEN 325 MG TAB PO PRN (19:54)
[2016-05-05] VITALS (15 sets, daily range): BP systolic 95–119; BP diastolic 58–78; PULSE 57–77; TEMP 36.6–37; O2SAT 93–98
[2016-05-05] MEDS: NITROGLYCERIN OINT 2% 1GM PACKET EXT SCH ×2 (06:00)
[2016-05-05] MEDS: LEVOTHYROXINE 112 MCG TAB PO SCH (06:32)
[2016-05-05 06:55] LABS: BASO % 0.1 %; BASO ABS # 0.01 K/uL (0-0.2); COMPLETE YES; EOS % 0.4 %; HEMATOCRIT 37.3 % (37-47); IG% 0.3 %; LYMPH % 12.5 %; LYMPH ABS # 1.57 K/uL (1.2-3.4); MEAN CELL VOLUME 89.4 fL (80-100); MEAN CORPUSCULAR HGB CONC 32.4 g/dl (32-36); MEAN PLATELET VOLUME 10.2 fL (7.4-10.4); MONO % 9.4 %; NEUT % 77.3 %; PLATELET COUNT 240 K/uL (130-400); RED BLOOD COUNT 4.17 M/uL (4.2-5.4); WHITE BLOOD COUNT 12.61 K/uL (4.8-10.8)
[2016-05-05 07:07] LABS: INR 1.1 (0.9-1.1); PARTIAL THROMBOPLASTIN RATIO 1.1
[2016-05-05 07:31] LABS: CALCIUM 9.1 mg/dl (8.5-10.1); CREATININE 1.2 mg/dl (0.60-1.20); POTASSIUM 3.6 mmol/L (3.5-5.1)
[2016-05-05] MEDS: CEPHALEXIN MONOHYDRATE 500 MG CAP PO SCH ×2 (07:44→21:29)
[2016-05-05] MEDS: CARVEDILOL 3.125 MG TAB PO SCH (08:50)
--- NOTE | 2016-05-05 09:22 | Progress Note ---
Subjective Date of Service: May 05, 2016. (Claude Veras MD) Subjective Pt evaluation today including: conversation w/ patient, physical exam, chart review, lab review, review of studies, review of inpatient medication list Pain: denies pain PO Intake: adequate Voiding: no voiding problems Pt feels SOB improved in general. still reports persistent lower extremity swelling. Per Telemetry, she has been in sinus rhythm in 70's - 80's with some PVC's. (Claude Veras MD) Problem List Medical Problems: (1) Congestive heart failure Status: Acute (2) Hypokalemia Status: Acute (Claude Veras MD) Review of Systems Constitutional: No chills, No fever Respiratory: + shortness of breath, No cough, No sputum Cardiac: + edema (bilateral LW), + orthopnea, No chest pain, No palpitations Abdomen: No diarrhea, No nausea, No pain, No vomiting Female : No dysuria, No urinary frequency (Claude Veras MD) Medications Current Inpatient Medications Medications (Trade) Dose Ordered Sig/Joann Route Start Time Stop Time Status Last Admin Dose Admin Acetaminophen (Tylenol Tab) 650 mg Q4H PRN PO 05/02/16 16:30 06/01/16 16:29 05/04/16 19:54 650 MG Acetaminophen/ Butalbital/ Caffeine (Fioricet Tab) 1 tab DAILY PRN PO 05/02/16 16:30 06/01/16 16:29 Levothyroxine Sodium (Synthroid Tab) 224 mcg DAILYBB PO 05/03/16 06:00 06/02/16 05:59 05/05/16 06:32 224 MCG Sumatriptan Succinate (Imitrex Tab) 50 mg DAILY PRN PO 05/02/16 16:30 06/01/16 16:29 Topiramate (Topamax Tab) 50 mg QPM PO 05/02/16 21:00 06/01/16 20:59 05/04/16 19:53 50 MG Vitamin B Complex (Vitamin B Complex) 1 tab QAM PO 05/03/16 09:00 06/02/16 08:59 05/04/16 08:49 1 TAB Cholecalciferol (Vitamin D Tab) 5,000 inter.unit QAM PO 05/03/16 09:00 06/02/16 08:59 05/04/16 08:49 5,000 INTER.UNIT Paroxetine HCl (pAXil TAB) 10 mg QPM PO 05/02/16 21:00 06/01/16 20:59 05/04/16 19:53 10 MG Lorazepam (Ativan Inj) 0.5 mg Q4H PRN IV 05/02/16 16:45 06/01/16 16:44 Lorazepam (Ativan Inj) 1 mg Q4H PRN IV 05/02/16 16:45 06/01/16 16:44 Magnesium Hydroxide (Milk Of Magnesia Susp) 30 ml Q6H PRN PO 05/02/16 16:45 06/01/16 16:44 Bisacodyl (Dulcolax Supp) 10 mg DAILY PRN [place] 05/02/16 16:45 06/01/16 16:44 Diphenhydramine HCl (Benadryl Inj) 25 mg Q4H PRN IV 05/02/16 16:45 06/01/16 16:44 Al Hydrox/Mg Hydrox/ Simethicone 15 ml 15 ml Q4H PRN PO 05/02/16 16:45 06/01/16 16:44 Promethazine HCl/ Sodium Chloride (Phenergan Inj/ Nss 50ml) 50.5 ml @ 202 mls/hr Q4H PRN IV 05/02/16 16:45 06/01/16 16:44 Zolpidem Tartrate (Ambien Tab) 5 mg HSZ PRN PO 05/02/16 16:45 06/01/16 16:44 Ondansetron HCl (Zofran Inj) 4 mg Q6H PRN IV 05/02/16 16:45 06/01/16 16:44 05/04/16 23:22 4 MG Docusate Sodium (coLACE CAP) 100 mg BID PO 05/02/16 21:00 06/01/16 20:59 05/04/16 08:48 100 MG Morphine Sulfate (MoRPHine SULFATE INJ) 2 mg Q2H PRN IV 05/02/16 16:45 05/16/16 16:44 Morphine Sulfate (MoRPHine SULFATE INJ) 4 mg Q2H PRN IV 05/02/16 16:45 05/16/16 16:44 Cephalexin Monohydrate (Keflex Cap) 500 mg Q12@0800,2000 PO 05/03/16 08:00 05/08/16 07:59 05/05/16 07:44 500 MG Carvedilol (Coreg Tab) 3.125 mg DAILY PO 05/04/16 09:00 06/03/16 08:59 05/04/16 08:48 3.125 MG Lisinopril (Zestril Tab) 2.5 mg QAM PO 05/04/16 09:00 06/03/16 08:59 05/04/16 08:47 2.5 MG Sodium Chloride 1 sprays 1 sprays Q2H PRN NA 05/04/16 09:45 06/03/16 09:44 Furosemide/Syringe (Lasix Inj/ Syringe) 4 ml @ 4 mls/min Q12 IV 05/05/16 09:00 06/04/16 08:59 (Claude Veras MD) Objective Vital Signs Date Time Temp Pulse Resp B/P Pulse Ox O2 Delivery O2 Flow Rate FiO2 05/05/16 07:40 36.8 57 16 99/64 95 Room Air 05/05/16 04:15 93 Room Air 05/05/16 03:30 36.7 63 15 97/60 93 Room Air 05/05/16 00:10 Room Air 05/04/16 22:44 37.1 65 18 88/57 92 Room Air 05/04/16 20:04 36.9 75 18 84/62 93 Room Air 05/04/16 20:00 Room Air 05/04/16 15:41 37.1 72 16 92/60 91 Room Air 05/04/16 12:00 92 Room Air 05/04/16 11:49 37.0 74 16 101/69 94 Room Air 05/04/16 11:49 36.7 67 20 119/77 92 Room Air 2.0 (Claude Veras MD) Physical Exam General Appearance: WD/WN, no apparent distress, + thin Neck: supple, + JVD Respiratory/Chest: lungs clear, normal breath sounds Cardiovascular: regular rate, rhythm, no murmur Abdomen: normal bowel sounds, non tender, soft Extremities: non-tender, no calf tenderness, + pedal edema (Bilateral), + pertinent finding (SCD's in place) Neurologic/Psychiatric: alert, normal mood/affect Skin: normal color, warm/dry (Claude Veras MD) Laboratory Results Last 24 Hours Test 05/05/16 06:42 White Blood Count 12.61 K/uL Red Blood Count 4.17 M/uL Hemoglobin 12.1 g/dL Hematocrit 37.3 % Mean Corpuscular Volume 89.4 fL Mean Corpuscular Hemoglobin 29.0 pg Mean Corpuscular Hemoglobin Concent 32.4 g/dl Platelet Count 240 K/uL Mean Platelet Volume 10.2 fL Neutrophils (%) (Auto) 77.3 % Lymphocytes (%) (Auto) 12.5 % Monocytes (%) (Auto) 9.4 % Eosinophils (%) (Auto) 0.4 % Basophils (%) (Auto) 0.1 % Neutrophils # (Auto) 9.76 K/uL Lymphocytes # (Auto) 1.57 K/uL Monocytes # (Auto) 1.18 K/uL Eosinophils # (Auto) 0.05 K/uL Basophils # (Auto) 0.01 K/uL RDW Standard Deviation 50.1 fL RDW Coefficient of Variation 15.3 % Immature Granulocyte % (Auto) 0.3 % Immature Granulocyte # (Auto) 0.04 K/uL Prothrombin Time 12.0 SECONDS Prothromb Time International Ratio 1.1 Activated Partial Thromboplast Time 28.9 SECONDS Partial Thromboplastin Ratio 1.1 Sodium Level 136 mmol/L Potassium Level 3.6 mmol/L Chloride Level 101 mmol/L Carbon Dioxide Level 26 mmol/L Anion Gap 9.0 mmol/L Blood Urea Nitrogen 25 mg/dl Creatinine 1.20 mg/dl Est Creatinine Clear Calc Drug Dose 43.7 ml/min Estimated GFR () 54.9 Estimated GFR (Non- 47.4 BUN/Creatinine Ratio 21.0 Random Glucose 82 mg/dl Calcium Level 9.1 mg/dl Magnesium Level 2.0 mg/dl Total Bilirubin 0.7 mg/dl Direct Bilirubin 0.3 mg/dl Aspartate Amino Transf (AST/SGOT) 22 U/L Alanine Aminotransferase (ALT/SGPT) 34 U/L Alkaline Phosphatase 91 U/L Total Protein 5.9 gm/dl Albumin 2.8 gm/dl (Claude Veras MD) Assessment and Plan 65 yo F w/ hx of 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 CHF Exacerbation echo results from 05/03/2016 *1. Moderately dilated LV. Mild concentric LVH. * 2. Severe global LV dysfunction. LVEF 15-20%. * 3. Mildly dilated RV with mild RV dysfunction. * 4. Mild mitral regurgitation. Mild TR * 5. Borderline Pulmonary hypertension (Est PASP 35-40 mmHg). Elevated CVP (Est RA 15 mmHg). * 6. Large left pleural effusion. * 7. No prior studies for comparison. -SOB, LE Edema improving, JV elevation improved from arrival -Etiology of Cardiomyopathy currently unknown, TSH Free T4 wnl, Free T3 1.24 , Lyme Neg, F/U [place] - Cardiac Catheterization today to r/o Ischemic etiology( Make NPO until procedure) - I /O: net + 395 yesterday, Restart diuresis. Give 40 mg dose of Lasix today, - Continue to watch Cr - Continue Coreg, Recommend switching Lisinopril to Losartan due to patient's concern with headache she attributed to medication in the past Hyperlipidemia -Continue Statin Hypokalemia, resolved with supplementation K 3.6 <--3.3 <--3.5 Hypomagnesemia Mg 2.0 resolved with Supplementation Headache - Nitropast discontinued -Plan to switch Lisinopril to Losartan today as stated above Continued [facility] stay due to: multiple IV medications needed Discharge planning: home (Claude Veras MD) Agree with assessment and plan as outlined by Dr. Veras. Plan to continue diuresis today. Left and right heart catheterization this afternoon. Further recommendations pending. (Jett Warren MD) Resident Tracking Resident Involvement: Resident Care Provided Care Provided: Adult [facility] (Claude Veras MD)
[2016-05-05] MEDS: DOCUSATE SODIUM 100 MG CAP PO SCH ×2 (10:11→21:31)
[2016-05-05] MEDS: CHOLECALCIFEROL 1000 INTER.UNIT TAB PO SCH (10:11)
[2016-05-05] MEDS: FUROSEMIDE INJ 40 MG in SYRINGE 0 ML IV SCH ×2 (10:11→21:28)
[2016-05-05] MEDS: LISINOPRIL 2.5 MG TAB PO SCH (10:13)
[2016-05-05] MEDS: VITAMIN B COMPLEX TAB PO SCH (10:13)
--- NOTE | 2016-05-05 12:37 | Progress Note ---
Subjective Date of Service: May 05, 2016. Subjective Pt evaluation today including: conversation w/ patient, physical exam, chart review, lab review, review of studies, conversation w/ sediment remediation consultant, review of inpatient medication list Sitting up in chair, continue feeling generalized weakness, more tired, has good urine output, anxious about the cardiac cath evaluation, lower extremity still swelling Problem List Medical Problems: (1) Congestive heart failure Status: Acute (2) Hypokalemia Status: Acute Review of Systems Constitutional: + fatigue, + weakness, No chills, No fever, No problem reported , No sweats, No weight loss Eyes: No diplopia, No discharge, No eye pain, No redness, No worsening of vision ENT: No dental problems, No hearing loss, No nasal symptoms, No sore throat, No tinnitus, No trouble swallowing, No unusual epistaxis Respiratory: + shortness of breath (dyspnea on exertion), No cough, No dyspnea at rest, No dyspnea on exertion, No hemoptysis, No sputum, No wheezing Cardiac: + edema (2+), No PND, No chest pain, No claudication, No orthopnea, No palpitations Abdomen: No constipation, No diarrhea, No nausea, No pain, No vomiting Musculoskeletal: No calf pain, No joint pain, No muscle pain, No swelling Female : No abnormal vaginal bleeding, No dysuria, No hematuria, No incontinence, No urinary frequency, No vaginal discharge Neurologic: No balance problems, No memory loss, No numbness/tingling, No paralysis, No vertigo, No weakness Psychiatric: No anhedonism, No anxiety, No depression symptoms, No insomnia, No substance abuse Heme: No abnormal bleeding/bruising, No clotting problems, No night sweats, No swollen lymph nodes Endo: + fatigue, No excessive thirst, No excessive urination Skin: No bleeding, No color change, No itch, No new/changing skin lesions, No rash Objective Vital Signs Date Time Temp Pulse Resp B/P Pulse Ox O2 Delivery O2 Flow Rate FiO2 05/05/16 11:34 36.6 69 16 109/78 95 Room Air 05/05/16 08:00 Room Air 05/05/16 07:40 36.8 57 16 99/64 95 Room Air 05/05/16 04:15 93 Room Air 05/05/16 03:30 36.7 63 15 97/60 93 Room Air 05/05/16 00:10 Room Air 05/04/16 22:44 37.1 65 18 88/57 92 Room Air 05/04/16 20:04 36.9 75 18 84/62 93 Room Air 05/04/16 20:00 Room Air 05/04/16 15:41 37.1 72 16 92/60 91 Room Air Physical Exam General Appearance: WD/WN, no apparent distress, + cachetic, + thin, + pertinent finding (frail, but color looks a little bit better than yesterday) Eyes: normal inspection, PERRL, EOMI, sclerae normal ENT: normal ENT inspection, hearing grossly normal, pharynx normal Neck: supple, no adenopathy, thyroid normal, no JVD, no carotid bruits, trachea midline Respiratory/Chest: chest non-tender, normal breath sounds, no respiratory distress, no accessory muscle use, + decreased breath sounds Cardiovascular: regular rate, rhythm, no gallop, no JVD, no murmur, + pertinent finding (3+ edema up to lower extremity) Abdomen: normal bowel sounds, non tender, soft, no organomegaly, no pulsatile mass Extremities: normal range of motion, non-tender, normal inspection, no pedal edema, no calf tenderness, normal capillary refill, pelvis stable, + swelling Neurologic/Psychiatric: garment sorter II-XII nml as tested, no motor/sensory deficits, alert, normal mood/affect, oriented x 3 Skin: normal color, warm/dry, no rash Lymphatic: no adenopathy Laboratory Results Last 24 Hours Test 05/05/16 06:42 White Blood Count 12.61 K/uL Red Blood Count 4.17 M/uL Hemoglobin 12.1 g/dL Hematocrit 37.3 % Mean Corpuscular Volume 89.4 fL Mean Corpuscular Hemoglobin 29.0 pg Mean Corpuscular Hemoglobin Concent 32.4 g/dl Platelet Count 240 K/uL Mean Platelet Volume 10.2 fL Neutrophils (%) (Auto) 77.3 % Lymphocytes (%) (Auto) 12.5 % Monocytes (%) (Auto) 9.4 % Eosinophils (%) (Auto) 0.4 % Basophils (%) (Auto) 0.1 % Neutrophils # (Auto) 9.76 K/uL Lymphocytes # (Auto) 1.57 K/uL Monocytes # (Auto) 1.18 K/uL Eosinophils # (Auto) 0.05 K/uL Basophils # (Auto) 0.01 K/uL RDW Standard Deviation 50.1 fL RDW Coefficient of Variation 15.3 % Immature Granulocyte % (Auto) 0.3 % Immature Granulocyte # (Auto) 0.04 K/uL Prothrombin Time 12.0 SECONDS Prothromb Time International Ratio 1.1 Activated Partial Thromboplast Time 28.9 SECONDS Partial Thromboplastin Ratio 1.1 Sodium Level 136 mmol/L Potassium Level 3.6 mmol/L Chloride Level 101 mmol/L Carbon Dioxide Level 26 mmol/L Anion Gap 9.0 mmol/L Blood Urea Nitrogen 25 mg/dl Creatinine 1.20 mg/dl Est Creatinine Clear Calc Drug Dose 43.7 ml/min Estimated GFR () 54.9 Estimated GFR (Non- 47.4 BUN/Creatinine Ratio 21.0 Random Glucose 82 mg/dl Calcium Level 9.1 mg/dl Magnesium Level 2.0 mg/dl Total Bilirubin 0.7 mg/dl Direct Bilirubin 0.3 mg/dl Aspartate Amino Transf (AST/SGOT) 22 U/L Alanine Aminotransferase (ALT/SGPT) 34 U/L Alkaline Phosphatase 91 U/L Total Protein 5.9 gm/dl Albumin 2.8 gm/dl Assessment and Plan 65 year-old admitted on 05/02/2016 because of CHF/NSTEMI/anasarca/hypokalemia/ hypomagnesemia/hypoalbuminemia, stable and possible minimal improving Acute on chronic systolic CHF/NSTEMI/anasarca: Stable and minimal improving On the -1.2 L so far, is reportedly weight is increased from 60.6-60.9 kg, She did not get Lasix intravenous yesterday because of worsening kidney function creatinine 1.2 to 1.3 Today's creatinine is better Lasix twice a day ordered cardiac rhythm monitoring, 2-D echocardiogram with Dopplers was done, results in below Replace both potassium and magnesium orally and IV. Discussed with barking machine feeder Continue beta lubna, fluid restriction, 2 g sodium diet, watch for kidney function Lasix twice a day ordered, continue diuretic Change KAIT inhibitor to losartan because hx of KAIT inhibitor caused headache Follow-up electrolyte echo results done today on 05/03/2016, because in below *1. Moderately dilated LV. Mild concentric LVH. * 2. Severe global LV dysfunction. LVEF 15-20%. * 3. Mildly dilated RV with mild RV dysfunction. * 4. Mild mitral regurgitation. Mild TR * 5. Borderline Pulmonary hypertension (Est PASP 35-40 mmHg). Elevated CVP (Est RA 15 mmHg). * 6. Large left pleural effusion. * 7. No prior studies for comparison. Possible cardiomyopathy with significant decreased LVEF, etiology unknown, ischemic cardiomyopathy or metabolic cardiomyopathy , so far the testing has been negative include TSH, Lyme disease, vitamin B12 and folate acid levels, results reviewed , [place] testing is pending cardiology is planning to have left heart cath, I agreed this is an important step to have further evaluation I also discussed with patient about risk and benefit Minimal elevated troponin, likely because of demanding ischemia, we will follow- up Minimal elevated creatinine, will watch while on Lasix Asymptomatic gram-negative bacilli UTI with mild leukocytosis: Stable, leukocytosis is better with history of the kidney infection, Continue Keflex, and follow-up culture and sensitivity Migraine headache: Stable continue verapamil 180 mg by mouth at bedtime, Topamax 50 mg by mouth every afternoon, Fioricet when necessary, Imitrex when necessary. Low T3 level with the Hypothyroidism/history of thyroid myxedema: Stable TSH was normal and free T4 was normal continue current dose of levothyroxine sodium at 225 g by mouth daily Lyme disease was checked was negative Anxiety/depression: Stable continue Paxil 10 mg by mouth daily, is on Ativan as needed , discussed with her to adjust the medication, she prefers to follow-up with PCP or Dr. Barros about this continue fluid restriction and 2 g sodium diet PT OT, social work instructor for discharge plan Continued [facility] stay due to: multiple IV medications needed Discharge planning: home
[2016-05-05] MEDS ORDERED: NiCARDipine HCL INJ 2.5 MG/ML 10 ML AMP ONE (15:03)
[2016-05-05] MEDS ORDERED: HEPARIN SOD (PORCINE) 1000 UNIT/ML 10 ML VIAL ONE (15:03)
[2016-05-05] MEDS ORDERED: FENTANYL CITRATE INJ 50 MCG/1 ML 2 ML VIAL ONE (15:03)
[2016-05-05] MEDS ORDERED: MIDAZOLAM HCL 1 MG/ML 2ML VIAL ONE (15:03)
[2016-05-05] MEDS ORDERED: NITROGLYCERIN/D5W 100MCG/ML 20ML SYR ONE (15:04)
--- NOTE | 2016-05-05 16:40 | Procedure Note ---
Pre-Mod Sedation Assessment General Date of Moderate Sedation: May 05, 2016. Vital Signs: Vital Signs Past 12 Hours Date Time Temp Pulse Resp B/P Pulse Ox O2 Delivery O2 Flow Rate FiO2 05/05/16 16:22 74 12 113/75 96 Mask 10 05/05/16 12:00 Room Air 05/05/16 11:34 36.6 69 16 109/78 95 Room Air 05/05/16 08:00 Room Air 05/05/16 07:40 36.8 57 16 99/64 95 Room Air Review Cardiovascular: regular rate, rhythm, no murmur, + pertinent finding (2+ edema) Abdomen: normal bowel sounds, non tender, soft, no organomegaly Lungs: chest non-tender, lungs clear, + respiratory distress (mild, able to speak in full sentences), + decreased breath sounds Pre-Sedation Airway Assessment Oral Cavity: Dental Abnormalities Able to Visualize Vocal Cords: No Short Thick Neck: No Hx of Sleep Apnea: No Smoking Status: Never Smoker Mallampati Classification: Class II ASA Classification: Class III Procedure Planning Contraindications-for Mod Sed: None Yes Notes The planned sedation has been discussed with the patient and consent obtained. I have identified the patient, determined the appropriateness of sedation and have assessed the patient immediately prior to the procedure. All medicine(s) and interventions are by my order.
[2016-05-05 17:00] LABS: ISTAT ARTERIAL BLOOD GAS HCO3 25 meq/L (19-24); ISTAT ARTERIAL BLOOD GAS PCO2 45 mmHg (35-46); ISTAT ARTERIAL BLOOD GAS PO2 < 32 mmHg (80-95); ISTAT ARTERIAL BLOOD GAS pH 7.36 (7.35-7.45); ISTAT CARBON DIOXIDE 26 mEq/l (24-31)
[2016-05-05 17:02] LABS: ISTAT ARTERIAL BLOOD GAS HCO3 24 meq/L (19-24); ISTAT ARTERIAL BLOOD GAS PCO2 43 mmHg (35-46); ISTAT ARTERIAL BLOOD GAS PO2 69 mmHg (80-95); ISTAT ARTERIAL BLOOD GAS pH 7.36 (7.35-7.45); ISTAT CARBON DIOXIDE 26 mEq/l (24-31)
--- NOTE | 2016-05-05 17:24 | Cardiac Catheterization ---
Procedure Note Procedure Date May 05, 2016. Pre-Procedure Diagnosis Cardiomyopathy AUC Score 7 Post-Procedure Diagnosis Severe CAD, Elevated Intracardiac Pressures Procedure(s) Performed Coronary Angiography, Left Heart Cath, Right Heart Cath, Ultrasound Guided Vascular Access Religious Leader Dr. Warren Scrap Cutter(s) Chuy Estimated Blood Loss 20 Medication(s) Fentanyl, Heparin, Nicardipine, Nitroglycerin, Versed, Lidocaine 1% Summary of Findings Indication: New severe cardiomyopathy Access: 6Fr slender right radial artery, 7Fr Femoral vein. Vessels accessed via ultrasound guidance Catheters: Baudilio Schneider Findings: LM - Luminal irregularities LAD - Chronic occlusion just after the take-off of the 1st septal. Mid-distal LAD fills via left to left collaterals (length of occlusion >20 mm). Mid- distal LAD appears small, diffusely diseases and does not reach apex. 1st diagonal occluded proximally Circumflex - large vessel, aneurysmal at take-off of 1st OM and in the mid segment. Gives off 3 obtuse marginals without significant disease. RCA - Dominant, true RCA not engaged. Only engaged small high RV branch without significant disease. RA 4 RV 41/11 PA 43/29 mean 36 PaSat 57% DANY/CI 3.6/2.1 LVEDP - 19 Arterial Closure: TR band Summary: 1. Severe coronary artery disease - Occluded early mid LAD and proximal 1st diagonal - RCA not visualized. 2. Ischemic cardiomyopathy 3. Mildly elevated intracardiac filling pressures. Recommendations: Continue KAIT/Beta-lubna Gentle continued diuresis Start ASA and high dose stain Plan for nuclear stress test to evaluate for ischemia and viability. Can be done as an outpatient. If ischemic/viable myocardium may need repeat cath at some point to further evaluate RCA for consideration of revascularization options. Hemodynamics Rest Ao: 98/56/75 Final Ao: 101/60/78 LV: 100/19 Recommendations Medical therapy and/or Counseling Specimens None Radiation Exposure (mGy) 1744 Contrast (mls) 30 Visi Fluids (cc crystalloids) 34 Drains none Anesthesia moderate Procedural Complication(s) None Disposition PCU ACC Data Cardiac Status Clinical evaluation leading to the procedure CAD Presntation: Sx unlikely to be ischemic Anginal Classification: No symptoms Heart Failure: Yes, NYHA Class: CCS IV Cardiogenic Shock w/in 24Hrs: No Cardiac Arrest w/in 24Hrs: No Imaging studies past 6 months: Yes Stress studies past 6 months: No Standard Exercise Stress Test: No Stress Echocardiogram: No Stress Testing w/SPECT MPI: No Cardiac CTA: No Coronary Anatomy Dominant: Right LAD (% Stenosis): Mid (100) D1 (% Stenosis): Ostial (100) Circumflex (% Stenosis): Normal (aneurysmal) Diagnostic Physician's Name: Jett Warren MD Status: Elective Closure Device Percutaneous Entry Location: Radial Closure Device: Radial Band Recommendations: Medical therapy and/or Counseling Intraprocedure Events Significant Dissection: No Perforation: No
[2016-05-05] MEDS: TOPIRAMATE 25 MG TAB PO SCH (21:28)
[2016-05-05] MEDS: PAROXETINE 20 MG TAB PO SCH (21:30)
[2016-05-06] VITALS (8 sets, daily range): BP systolic 74–109; BP diastolic 48–72; PULSE 56–67; TEMP 36.4–37.3; O2SAT 92–94
[2016-05-06] MEDS: LEVOTHYROXINE 112 MCG TAB PO SCH (06:00)
[2016-05-06 07:40] LABS: BUN/CREATININE RATIO 18.5 (10-20); CALCIUM 9.4 mg/dl (8.5-10.1); CREATININE 1.1 mg/dl (0.60-1.20); POTASSIUM 3.4 mmol/L (3.5-5.1)
[2016-05-06] MEDS: CEPHALEXIN MONOHYDRATE 500 MG CAP PO SCH ×2 (08:01→21:52)
[2016-05-06] MEDS: FUROSEMIDE INJ 40 MG in SYRINGE 0 ML IV SCH (08:01)
[2016-05-06] MEDS: DOCUSATE SODIUM 100 MG CAP PO SCH ×2 (08:01→21:51)
[2016-05-06] MEDS: LOSARTAN POTASSIUM 25 MG TAB PO SCH (08:02)
[2016-05-06] MEDS: CARVEDILOL 3.125 MG TAB PO SCH (08:02)
[2016-05-06] MEDS: CHOLECALCIFEROL 1000 INTER.UNIT TAB PO SCH (08:03)
[2016-05-06] MEDS: VITAMIN B COMPLEX TAB PO SCH (08:03)
--- NOTE | 2016-05-06 08:35 | Cardiology Follow-Up ---
Subjective Subjective Date of Service: May 06, 2016. Pt evaluation today including: conversation w/ family, physical exam, chart review, lab review, review of studies, review of inpatient medication list Additional Details: Patient tired this AM. No chest pain. No significant shortness of breath Problem List Medical Problems: (1) Congestive heart failure Status: Acute (2) Hypokalemia Status: Acute Review of Systems Constitutional: + fatigue, + weakness, No fever Respiratory: + shortness of breath (dyspnea on exertion), No cough Cardiac: + edema (2+), No chest pain Abdomen: No nausea, No pain Female : No dysuria Psychiatric: + depression symptoms Endo: + fatigue Skin: No rash Objective Vital Signs Last Vital Signs Documentation Date Time Temp Pulse Resp B/P Pulse Ox O2 Delivery O2 Flow Rate FiO2 05/06/16 04:00 Room Air 05/06/16 03:17 36.6 58 16 94/61 93 05/05/16 17:00 6 Physical Exam: General Appearance: WD/WN, no apparent distress, + cachetic, + thin, + pertinent finding (frail, but color looks a little bit better than yesterday) ENT: normal ENT inspection Neck: no JVD Respiratory/Chest: normal breath sounds Cardiovascular: regular rate, rhythm, no gallop, no JVD, + pertinent finding (2 + edema to shins) Abdomen: normal bowel sounds, non tender, soft Extremities: normal range of motion, + swelling Neurologic/Psychiatric: alert, normal mood/affect Skin: normal color, warm/dry, no rash Lymphatic: no adenopathy Assessment and Plan 1. Acute systolic heart failure 2. Ischemic cardiomyopathy 3. Severe coronary artery disease Patient with persistent lower extremity edema today. Intracardiac filling pressures not terribly high and cardiac output reasonable on RHC LHC showed severe CAD involving LAD. Unclear if anterior, anterolateral wall viable --> will need stress with viability (unfortunately unable to do today). -- For now recommend continued diuresis, 40 IV BID --> likely be able to transition to POs in next 1-2 days -- If still here can do stress on monday or can do as an outpatient -- continue ASA, high dose statin -- continue ARB, coreg Will continue to follow. Agree with assessment and plan as outlined by Dr. Veras. Plan to continue diuresis today. Left and right heart catheterization this afternoon. Further recommendations pending. Continued [facility] stay due to: multiple IV medications needed Discharge planning: home Medications: Current Inpatient Medications Medications (Trade) Dose Ordered Sig/Joann Route Start Time Stop Time Status Last Admin Dose Admin Acetaminophen (Tylenol Tab) 650 mg Q4H PRN PO 05/02/16 16:30 06/01/16 16:29 05/04/16 19:54 650 MG Acetaminophen/ Butalbital/ Caffeine (Fioricet Tab) 1 tab DAILY PRN PO 05/02/16 16:30 06/01/16 16:29 Levothyroxine Sodium (Synthroid Tab) 224 mcg DAILYBB PO 05/03/16 06:00 06/02/16 05:59 05/05/16 06:32 224 MCG Sumatriptan Succinate (Imitrex Tab) 50 mg DAILY PRN PO 05/02/16 16:30 06/01/16 16:29 Topiramate (Topamax Tab) 50 mg QPM PO 05/02/16 21:00 06/01/16 20:59 05/05/16 21:28 50 MG Vitamin B Complex (Vitamin B Complex) 1 tab QAM PO 05/03/16 09:00 06/02/16 08:59 05/06/16 08:03 1 TAB Cholecalciferol (Vitamin D Tab) 5,000 inter.unit QAM PO 05/03/16 09:00 06/02/16 08:59 05/06/16 08:03 5,000 INTER.UNIT Paroxetine HCl (pAXil TAB) 10 mg QPM PO 05/02/16 21:00 06/01/16 20:59 05/05/16 21:30 10 MG Lorazepam (Ativan Inj) 0.5 mg Q4H PRN IV 05/02/16 16:45 06/01/16 16:44 Lorazepam (Ativan Inj) 1 mg Q4H PRN IV 05/02/16 16:45 06/01/16 16:44 Magnesium Hydroxide (Milk Of Magnesia Susp) 30 ml Q6H PRN PO 05/02/16 16:45 06/01/16 16:44 Bisacodyl (Dulcolax Supp) 10 mg DAILY PRN NC 05/02/16 16:45 06/01/16 16:44 Diphenhydramine HCl (Benadryl Inj) 25 mg Q4H PRN IV 05/02/16 16:45 06/01/16 16:44 Al Hydrox/Mg Hydrox/ Simethicone 15 ml 15 ml Q4H PRN PO 05/02/16 16:45 06/01/16 16:44 Promethazine HCl/ Sodium Chloride (Phenergan Inj/ Nss 50ml) 50.5 ml @ 202 mls/hr Q4H PRN IV 05/02/16 16:45 06/01/16 16:44 Zolpidem Tartrate (Ambien Tab) 5 mg HSZ PRN PO 05/02/16 16:45 06/01/16 16:44 Ondansetron HCl (Zofran Inj) 4 mg Q6H PRN IV 05/02/16 16:45 06/01/16 16:44 05/04/16 23:22 4 MG Docusate Sodium (coLACE CAP) 100 mg BID PO 05/02/16 21:00 06/01/16 20:59 05/06/16 08:01 100 MG Morphine Sulfate (MoRPHine SULFATE INJ) 2 mg Q2H PRN IV 05/02/16 16:45 05/16/16 16:44 Morphine Sulfate (MoRPHine SULFATE INJ) 4 mg Q2H PRN IV 05/02/16 16:45 05/16/16 16:44 Cephalexin Monohydrate (Keflex Cap) 500 mg Q12@0800,2000 PO 05/03/16 08:00 05/08/16 07:59 05/06/16 08:01 500 MG Carvedilol (Coreg Tab) 3.125 mg DAILY PO 05/04/16 09:00 06/03/16 08:59 05/06/16 08:02 3.125 MG Sodium Chloride 1 sprays 1 sprays Q2H PRN NA 05/04/16 09:45 06/03/16 09:44 Furosemide/Syringe (Lasix Inj/ Syringe) 4 ml @ 4 mls/min Q12 IV 05/05/16 09:00 06/04/16 08:59 05/06/16 08:01 4 MLS/MIN Losartan Potassium (coZAAR TAB) 25 mg QAM PO 05/06/16 09:00 06/05/16 08:59 05/06/16 08:02 25 MG Aspirin (Ecotrin Tab) 81 mg QAM PO 05/06/16 09:00 06/05/16 08:59 Lab Results: 05/06/16 06:44 Test 05/05/16 16:03 05/05/16 16:15 05/06/16 06:44 Bedside Blood Gas pH (LAB) 7.36 (7.35-7.45) Bedside Blood Gas pCO2 (LAB) 45 mmHg (35-46) Bedside Blood Gas pO2 (LAB) < 32 mmHg (80-95) Bedside Blood Gas HCO3 (LAB) 25 meq/L (19-24) Bedside Blood Gas Total CO2 26 mEq/l (24-31) Bedside Blood Gas Base Excess (LAB) 0.0 meq/L (-9-1.8) Bedside Blood Gas O2 Saturation 57.0 % (90-95) Kaolin Activated Coagulation Time 214 SECONDS (94-140) Anion Gap 8.0 mmol/L (3-11) Est Creatinine Clear Calc Drug Dose 47.7 ml/min Estimated GFR () 61.0 Estimated GFR (Non- 52.6 BUN/Creatinine Ratio 18.5 (10-20) Calcium Level 9.4 mg/dl (8.5-10.1) Magnesium Level 2.0 mg/dl (1.8-2.4)
[2016-05-06] MEDS: ASPIRIN 81 MG ECTAB PO SCH (09:00)
[2016-05-06] MEDS: ALUMINUM/MAGNESIUM/SIMETH (MAALOX MAX) 30 ML UDC PO PRN ×2 (12:41→21:55)
[2016-05-06] MEDS ORDERED: NURSING VERBAL MED ORDER ONE (13:00)
[2016-05-06] MEDS ORDERED: POTASSIUM CHLORIDE 10 MEQ TABCR PO ONE (14:18)
--- NOTE | 2016-05-06 14:26 | Progress Note ---
Subjective Date of Service: May 06, 2016. Subjective Pt evaluation today including: conversation w/ patient, physical exam, chart review, lab review, review of studies, conversation w/ managed services sales consultant, review of inpatient medication list Had a cardiac test yesterday, tolerated well, continue have severe lower extremity edema Complaining about lower back pain Nurse reported SBP lower as 70s occasionally generalized weakness and severe fatigue Has good urine output Problem List Medical Problems: (1) Congestive heart failure Status: Acute (2) Hypokalemia Status: Acute Review of Systems Constitutional: + fatigue, + weakness, No chills, No fever, No problem reported , No sweats, No weight loss Eyes: No diplopia, No discharge, No eye pain, No redness, No worsening of vision ENT: No dental problems, No hearing loss, No nasal symptoms, No sore throat, No tinnitus, No trouble swallowing, No unusual epistaxis Respiratory: No cough, No dyspnea at rest, No dyspnea on exertion, No hemoptysis, No shortness of breath, No sputum, No wheezing Cardiac: + edema, No PND, No chest pain, No claudication, No orthopnea, No palpitations Abdomen: No constipation, No diarrhea, No nausea, No pain, No vomiting Musculoskeletal: + joint pain, No calf pain, No muscle pain, No swelling Female : No abnormal vaginal bleeding, No dysuria, No hematuria, No incontinence, No urinary frequency, No vaginal discharge Neurologic: No balance problems, No memory loss, No numbness/tingling, No paralysis, No vertigo, No weakness Psychiatric: No anhedonism, No anxiety, No depression symptoms, No insomnia, No substance abuse Heme: No abnormal bleeding/bruising, No clotting problems, No night sweats, No swollen lymph nodes Endo: No excessive thirst, No excessive urination, No fatigue Skin: No bleeding, No color change, No itch, No new/changing skin lesions, No rash Objective Vital Signs Date Time Temp Pulse Resp B/P Pulse Ox O2 Delivery O2 Flow Rate FiO2 05/06/16 12:45 99/64 05/06/16 12:04 36.5 56 16 74/51 92 Room Air 05/06/16 12:00 Room Air 05/06/16 08:00 36.9 61 16 109/72 92 Room Air 05/06/16 08:00 Room Air 05/06/16 04:00 Room Air 05/06/16 03:17 36.6 58 16 94/61 93 Room Air 05/06/16 01:17 36.9 64 18 94/61 93 Room Air 05/05/16 23:59 Room Air 05/05/16 21:00 37.0 74 16 101/69 94 Room Air 05/05/16 20:00 Room Air 05/05/16 20:00 62 95/58 96 Room Air 05/05/16 18:55 76 104/67 95 Room Air 05/05/16 18:40 77 119/75 98 Room Air 05/05/16 18:25 71 103/61 96 Room Air 05/05/16 18:10 65 102/63 96 Room Air 05/05/16 17:55 72 103/68 96 Room Air 05/05/16 17:40 74 104/65 96 Room Air 05/05/16 17:25 70 112/71 96 Room Air 05/05/16 17:11 70 102/65 96 Room Air 05/05/16 17:00 77 12 115/73 93 Nasal Cannula 6 05/05/16 16:45 76 12 112/70 93 Nasal Cannula 6 05/05/16 16:42 76 12 111/72 93 Nasal Cannula 6 05/05/16 16:37 78 12 119/80 94 Nasal Cannula 6 05/05/16 16:22 74 12 113/75 96 Mask 10 Physical Exam General Appearance: WD/WN, no apparent distress, + cachetic, + thin, + pertinent finding (weak, frail) Eyes: normal inspection, PERRL, EOMI, sclerae normal ENT: normal ENT inspection, hearing grossly normal, pharynx normal Neck: supple, no adenopathy, thyroid normal, no JVD, no carotid bruits, trachea midline Respiratory/Chest: chest non-tender, normal breath sounds, no respiratory distress, no accessory muscle use, + decreased breath sounds Cardiovascular: regular rate, rhythm, no gallop, no JVD, no murmur Abdomen: normal bowel sounds, non tender, soft, no organomegaly, no pulsatile mass Extremities: normal range of motion, non-tender, normal inspection, no pedal edema, no calf tenderness, normal capillary refill, pelvis stable, + swelling ( lower extremities up to thigh no obvious improving) Neurologic/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 tested, no motor/sensory deficits, alert, normal mood/affect, oriented x 3 Skin: normal color, warm/dry, no rash Lymphatic: no adenopathy Laboratory Results Last 24 Hours Test 05/05/16 15:56 05/05/16 16:03 05/05/16 16:15 05/06/16 06:44 Bedside Blood Gas pH (LAB) 7.36 7.36 Bedside Blood Gas pCO2 (LAB) 43 mmHg 45 mmHg Bedside Blood Gas pO2 (LAB) 69 mmHg < 32 mmHg Bedside Blood Gas HCO3 (LAB) 24 meq/L 25 meq/L Bedside Blood Gas Total CO2 26 mEq/l 26 mEq/l Bedside Blood Gas Base Excess (LAB) -1.0 meq/L 0.0 meq/L Bedside Blood Gas O2 Saturation 93.0 % 57.0 % Kaolin Activated Coagulation Time 214 SECONDS Sodium Level 136 mmol/L Potassium Level 3.4 mmol/L Chloride Level 98 mmol/L Carbon Dioxide Level 30 mmol/L Anion Gap 8.0 mmol/L Blood Urea Nitrogen 20 mg/dl Creatinine 1.10 mg/dl Est Creatinine Clear Calc Drug Dose 47.7 ml/min Estimated GFR () 61.0 Estimated GFR (Non- 52.6 BUN/Creatinine Ratio 18.5 Random Glucose 81 mg/dl Calcium Level 9.4 mg/dl Magnesium Level 2.0 mg/dl Assessment and Plan 65 year-old admitted on 05/02/2016 because of CHF/NSTEMI/anasarca/hypokalemia/ hypomagnesemia/hypoalbuminemia, stable and possible minimal improving Acute on chronic systolic CHF/NSTEMI/anasarca: Stable and minimal improving Ischemic cardiomyopathy Severe coronary artery disease Had left cardiac cath 05/05/2016: Intracardiac filling pressures not terribly high and cardiac output reasonable on RHC LHC showed severe CAD involving LAD. Unclear if anterior, anterolateral wall viable per thermoforming operator : will need stress with viability totally -2.6 L since admission Today's creatinine is continue better, which tolerate diuretic Lasix twice a day ordered cardiac rhythm monitoring, 2-D echocardiogram with Dopplers was done, results in below Replace both potassium and magnesium orally and IV. Discussed with thermoforming operator Continue beta lubna, fluid restriction, 2 g sodium diet, watch for kidney function Lasix twice a day ordered, continue diuretic Change KAIT inhibitor to losartan because hx of KAIT inhibitor caused headache Follow-up electrolyte, today's hypokinemia replace echo results done today on 05/03/2016, because in below *1. Moderately dilated LV. Mild concentric LVH. * 2. Severe global LV dysfunction. LVEF 15-20%. * 3. Mildly dilated RV with mild RV dysfunction. * 4. Mild mitral regurgitation. Mild TR * 5. Borderline Pulmonary hypertension (Est PASP 35-40 mmHg). Elevated CVP (Est RA 15 mmHg). * 6. Large left pleural effusion. * 7. No prior studies for comparison. Minimal elevated troponin, likely because of demanding ischemia, we will follow- up Possible acute kidney injury upon admissions likely from the kidney congestion from CHF, Renal function continue to improved on Lasix Continue follow-up Minimal Asymptomatic gram-negative bacilli UTI with mild leukocytosis: Stable, leukocytosis is resolved with history of the kidney infection, Continue Keflex, and follow-up culture and sensitivity Migraine headache: Stable continue verapamil 180 mg by mouth at bedtime, Topamax 50 mg by mouth every afternoon, Fioricet when necessary, Imitrex when necessary. Low T3 level with the Hypothyroidism/history of thyroid myxedema: Stable TSH was normal and free T4 was normal continue current dose of levothyroxine sodium at 225 g by mouth daily Anxiety/depression: Stable continue Paxil 10 mg by mouth daily, is on Ativan as needed , discussed with her to adjust the medication, she prefers to follow-up with PCP or Dr. Barros about this continue fluid restriction and 2 g sodium diet Possible deconditioning, generalized condition is looks poor, she is so weak chronic ill-looking tired and fatigued, possible poor prognosis, I offered to talk to her family, she declined PT OT, social work professor for discharge plan Continued [facility] stay due to: multiple IV medications needed Discharge planning: home
[2016-05-06 16:44] LABS: ANA TITER 1:40 TITER (<1:40)
[2016-05-06] MEDS: FUROSEMIDE INJ 30 MG in SYRINGE 0 ML IV SCH (21:50)
[2016-05-06] MEDS: PAROXETINE 20 MG TAB PO SCH (21:51)
[2016-05-06] MEDS: TOPIRAMATE 25 MG TAB PO SCH (21:52)
[2016-05-07] VITALS (7 sets, daily range): BP systolic 96–112; BP diastolic 56–74; PULSE 59–69; TEMP 36.6–37.1; O2SAT 92–98
[2016-05-07] MEDS: LEVOTHYROXINE 112 MCG TAB PO SCH (06:07)
[2016-05-07 07:42] LABS: CHOLESTEROL/HDL RATIO 3.6
[2016-05-07] MEDS: DOCUSATE SODIUM 100 MG CAP PO SCH ×2 (07:52→21:00)
[2016-05-07] MEDS: FUROSEMIDE INJ 30 MG in SYRINGE 0 ML IV SCH (07:52)
[2016-05-07] MEDS: CARVEDILOL 3.125 MG TAB PO SCH (07:53)
[2016-05-07] MEDS: VITAMIN B COMPLEX TAB PO SCH (07:53)
[2016-05-07] MEDS: ASPIRIN 81 MG ECTAB PO SCH (07:53)
[2016-05-07] MEDS: CHOLECALCIFEROL 1000 INTER.UNIT TAB PO SCH (07:54)
[2016-05-07 08:39] LABS: BUN/CREATININE RATIO 21.3 (10-20); CALCIUM 8.7 mg/dl (8.5-10.1); CREATININE 1.1 mg/dl (0.60-1.20); MAGNESIUM 2.1 mg/dl (1.8-2.4); POTASSIUM 3.9 mmol/L (3.5-5.1)
[2016-05-07] MEDS: LOSARTAN POTASSIUM 25 MG TAB PO SCH (09:00)
[2016-05-07] MEDS: AMOXICILLIN/CLAVULANATE TAB 875 MG TAB PO SCH ×2 (09:21→17:02)
[2016-05-07] MEDS: ALUMINUM/MAGNESIUM/SIMETH (MAALOX MAX) 30 ML UDC PO PRN ×3 (09:21→21:09)
[2016-05-07] MEDS: POTASSIUM CHLORIDE 20 MEQ TABCR PO SCH (10:22)
--- NOTE | 2016-05-07 13:24 | Progress Note ---
Subjective Date of Service: May 07, 2016. Subjective Pt evaluation today including: conversation w/ patient, physical exam, chart review, lab review, review of studies, conversation w/ government operations consultant, review of inpatient medication list Sitting up in chair, looks less fatigue more comfortable, RN report losartan was hold this morning because of low blood pressure Patient has no complaint Problem List Medical Problems: (1) Congestive heart failure Status: Acute (2) Hypokalemia Status: Acute Review of Systems Constitutional: + fatigue, + weakness, No chills, No fever, No problem reported , No sweats, No weight loss Eyes: No diplopia, No discharge, No eye pain, No redness, No worsening of vision ENT: No dental problems, No hearing loss, No nasal symptoms, No sore throat, No tinnitus, No trouble swallowing, No unusual epistaxis Respiratory: No cough, No dyspnea at rest, No dyspnea on exertion, No hemoptysis, No shortness of breath, No sputum, No wheezing Cardiac: No PND, No chest pain, No claudication, No edema, No orthopnea, No palpitations Abdomen: No constipation, No diarrhea, No nausea, No pain, No vomiting Musculoskeletal: + swelling (3+), No calf pain, No joint pain, No muscle pain Female : No abnormal vaginal bleeding, No dysuria, No hematuria, No incontinence, No urinary frequency, No vaginal discharge Neurologic: No balance problems, No memory loss, No numbness/tingling, No paralysis, No vertigo, No weakness Psychiatric: No anhedonism, No anxiety, No depression symptoms, No insomnia, No substance abuse Heme: No abnormal bleeding/bruising, No clotting problems, No night sweats, No swollen lymph nodes Endo: No excessive thirst, No excessive urination, No fatigue Skin: No bleeding, No color change, No itch, No new/changing skin lesions, No rash Objective Vital Signs Date Time Temp Pulse Resp B/P Pulse Ox O2 Delivery O2 Flow Rate FiO2 05/07/16 12:00 36.6 62 16 105/72 94 Room Air 05/07/16 12:00 Room Air 05/07/16 09:21 98/56 05/07/16 08:00 Room Air 05/07/16 08:00 36.6 65 18 106/68 92 Room Air 05/07/16 04:17 36.9 59 16 98/64 94 Room Air 05/07/16 04:00 Room Air 05/06/16 23:59 Room Air 05/06/16 22:58 36.4 65 18 97/67 94 Room Air 05/06/16 20:00 Room Air 05/06/16 19:44 37.0 67 16 90/57 93 Room Air 05/06/16 16:00 Room Air 05/06/16 15:21 37.3 64 16 90/48 92 Room Air Physical Exam General Appearance: WD/WN, no apparent distress, + cachetic, + thin Eyes: normal inspection, PERRL, EOMI, sclerae normal ENT: normal ENT inspection, hearing grossly normal, pharynx normal Neck: supple, no adenopathy, thyroid normal, no JVD, no carotid bruits, trachea midline Respiratory/Chest: chest non-tender, normal breath sounds, no respiratory distress, no accessory muscle use, + decreased breath sounds (left lower side obviously decreased) Cardiovascular: regular rate, rhythm, no edema, no gallop, no JVD, no murmur Abdomen: normal bowel sounds, non tender, soft, no organomegaly, no pulsatile mass Extremities: normal range of motion, non-tender, normal inspection, no pedal edema, no calf tenderness, normal capillary refill, pelvis stable, + swelling (3 +) Neurologic/Psychiatric: 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 affairs 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 II-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 nml as tested, no motor/sensory deficits, alert, normal mood/affect, oriented x 3 Skin: normal color, warm/dry, no rash Lymphatic: no adenopathy Laboratory Results Last 24 Hours Test 05/07/16 06:30 05/07/16 08:02 Triglycerides Level 75 mg/dl Cholesterol Level 153 mg/dl HDL Cholesterol 42 mg/dl LDL Cholesterol, Calculated 96 mg/dl VLDL Cholesterol, Calculated 15 mg/dl Cholesterol/HDL Ratio 3.6 Sodium Level 136 mmol/L Potassium Level 3.9 mmol/L Chloride Level 100 mmol/L Carbon Dioxide Level 29 mmol/L Anion Gap 7.0 mmol/L Blood Urea Nitrogen 23 mg/dl Creatinine 1.10 mg/dl Est Creatinine Clear Calc Drug Dose 47.7 ml/min Estimated GFR () 61.0 Estimated GFR (Non- 52.6 BUN/Creatinine Ratio 21.3 Random Glucose 97 mg/dl Calcium Level 8.7 mg/dl Magnesium Level 2.1 mg/dl Assessment and Plan 65 year-old admitted on 05/02/2016 because of CHF/NSTEMI/anasarca/hypokalemia/ hypomagnesemia/hypoalbuminemia, stable and possible minimal improving Acute on chronic systolic CHF/NSTEMI/anasarca: Stable and continue improving Ischemic cardiomyopathy Severe coronary artery disease Had left cardiac cath 05/05/2016: Intracardiac filling pressures not terribly high and cardiac output reasonable on RHC LHC showed severe CAD involving LAD. Unclear if anterior, anterolateral wall viable\ -3 L since admission Continue Lasix IV at 40 mg IV twice a day, add Aldactone, continue beta lubna and ARB cont fluid restriction, 2 g sodium diet, watch for kidney function Change KAIT inhibitor to losartan because hx of KAIT inhibitor caused headache Follow-up electrolyte, today's hypokinemia replace Today's creatinine is continue better, which remains tolerate diuretic cardiac rhythm monitoring, 2-D echocardiogram with Dopplers was done, results in below Replace both potassium and magnesium orally and IV. Discussed with publishing manager echo results done today on 05/03/2016, because in below *1. Moderately dilated LV. Mild concentric LVH. * 2. Severe global LV dysfunction. LVEF 15-20%. * 3. Mildly dilated RV with mild RV dysfunction. * 4. Mild mitral regurgitation. Mild TR * 5. Borderline Pulmonary hypertension (Est PASP 35-40 mmHg). Elevated CVP (Est RA 15 mmHg). * 6. Large left pleural effusion. * 7. No prior studies for comparison. Minimal elevated troponin, likely because of demanding ischemia, we will follow- up Possible acute kidney injury upon admissions likely from the kidney congestion from CHF, Renal function continue to improved on Lasix Continue follow-up Asymptomatic Serrati UTI change to Augmentin per sensitivity, need to be total 7 days with history of the kidney infection, Migraine headache: Stable continue verapamil 180 mg by mouth at bedtime, Topamax 50 mg by mouth every afternoon, Fioricet when necessary, Imitrex when necessary. Low T3 level with the Hypothyroidism/history of thyroid myxedema: Stable TSH was normal and free T4 was normal continue current dose of levothyroxine sodium at 225 g by mouth daily Positive [place], the initial purpose to check [place] was for their etiology of cardiomyopathy, now has answers for that, [place] positive possible not any meaningful, patient reportedly was having [place] positive history and primary care physician knows that Patient prefers not to have further evaluations such as to rule out lupus disease, but she prefers to continue follow-up with PCP about this Anxiety/depression: Stable continue Paxil 10 mg by mouth daily, is on Ativan as needed , discussed with her to adjust the medication, she prefers to follow-up with PCP or Dr. Barros about this continue fluid restriction and 2 g sodium diet follow-up FLP, replace lytes , increase activity PTOT, check vitamin D level DVT prophylaxis covered Continued [facility] stay due to: multiple IV medications needed Discharge planning: home
[2016-05-07] MEDS ORDERED: SPIRONOLACTONE 25 MG TAB PO ONE (14:00)
--- NOTE | 2016-05-07 14:08 | DIAGNOSTIC IMAGING REPORT ---
CHEST 2 VIEWS ROUTINE CLINICAL HISTORY: [facility] exact dyspnea COMPARISON STUDY: 05/02/2016 FINDINGS: Mild interval increase in volume of a left pleural effusion. Moderate stable cardia megaly. Trace pleural fluid right base. Slight improvement in pulmonary vasculature prominence. IMPRESSION: 1. Improving components of congestive failure. 2. Small left pleural effusion slightly increased in volume from the prior study. Electronically signed by: Modesto Hudson M.D. 05/07/2016 2:07 PM Dictated Date/Time: 05/07/2016 2:06 PM
[2016-05-07] MEDS: FUROSEMIDE INJ 40 MG in SYRINGE 0 ML IV SCH (17:02)
[2016-05-07] MEDS: TOPIRAMATE 25 MG TAB PO SCH (21:06)
[2016-05-07] MEDS: PAROXETINE 20 MG TAB PO SCH (21:07)
[2016-05-08] VITALS (7 sets, daily range): BP systolic 93–118; BP diastolic 53–74; PULSE 65–70; TEMP 36.6–37; O2SAT 93–98
[2016-05-08] MEDS: LEVOTHYROXINE 112 MCG TAB PO SCH (06:36)
[2016-05-08 07:10] LABS: BUN/CREATININE RATIO 23.7 (10-20); CALCIUM 9.2 mg/dl (8.5-10.1); MAGNESIUM 2.6 mg/dl (1.8-2.4); POTASSIUM 4.1 mmol/L (3.5-5.1)
[2016-05-08] MEDS: AMOXICILLIN/CLAVULANATE TAB 875 MG TAB PO SCH ×2 (07:48→16:44)
[2016-05-08] MEDS: FUROSEMIDE INJ 40 MG in SYRINGE 0 ML IV SCH ×2 (07:49→16:44)
[2016-05-08] MEDS: DOCUSATE SODIUM 100 MG CAP PO SCH (07:50)
[2016-05-08] MEDS: ASPIRIN 81 MG ECTAB PO SCH (07:51)
[2016-05-08] MEDS: CARVEDILOL 3.125 MG TAB PO SCH (07:51)
[2016-05-08] MEDS: SPIRONOLACTONE 100 MG TAB PO SCH (07:51)
[2016-05-08] MEDS: VITAMIN B COMPLEX TAB PO SCH (07:52)
[2016-05-08] MEDS: POTASSIUM CHLORIDE 20 MEQ TABCR PO SCH (07:52)
[2016-05-08] MEDS: CHOLECALCIFEROL 1000 INTER.UNIT TAB PO SCH (07:53)
[2016-05-08] MEDS: ALUMINUM/MAGNESIUM/SIMETH (MAALOX MAX) 30 ML UDC PO PRN ×2 (08:05→20:08)
[2016-05-08] MEDS: LOSARTAN POTASSIUM 25 MG TAB PO SCH (09:10)
--- NOTE | 2016-05-08 15:01 | Progress Note ---
Subjective Date of Service: May 08, 2016. Subjective Pt evaluation today including: conversation w/ patient, physical exam, chart review, lab review, review of studies, conversation w/ bank consultant, review of inpatient medication list Bilateral lower ext still swelling, but generally improving, has good urination , standing up and doing a few range of motion, however she still feeling so generalized weakness, report has 4 times bowel movement, want to stop [place] Problem List Medical Problems: (1) Congestive heart failure Status: Acute (2) Hypokalemia Status: Acute Review of Systems Constitutional: + fatigue, + weakness Eyes: No diplopia, No discharge, No eye pain, No redness, No worsening of vision ENT: No dental problems, No hearing loss, No nasal symptoms, No sore throat, No tinnitus, No trouble swallowing, No unusual epistaxis Respiratory: + shortness of breath Cardiac: No PND, No chest pain, No claudication, No edema, No orthopnea, No palpitations Abdomen: No constipation, No diarrhea, No nausea, No pain, No vomiting Musculoskeletal: + swelling Female : No abnormal vaginal bleeding, No dysuria, No hematuria, No incontinence, No urinary frequency, No vaginal discharge Neurologic: No balance problems, No memory loss, No numbness/tingling, No paralysis, No vertigo, No weakness Psychiatric: No anhedonism, No anxiety, No depression symptoms, No insomnia, No substance abuse Heme: No abnormal bleeding/bruising, No clotting problems, No night sweats, No swollen lymph nodes Endo: No excessive thirst, No excessive urination, No fatigue Skin: No bleeding, No color change, No itch, No new/changing skin lesions, No rash Objective Vital Signs Date Time Temp Pulse Resp B/P Pulse Ox O2 Delivery O2 Flow Rate FiO2 05/08/16 12:00 Room Air 05/08/16 11:46 36.9 67 22 108/69 93 Room Air 05/08/16 09:10 66 105/70 05/08/16 08:00 Room Air 05/08/16 07:37 36.7 65 16 104/74 95 Room Air 05/08/16 04:00 Room Air 05/08/16 04:00 37.0 68 18 118/68 98 Room Air 05/07/16 23:59 Room Air 05/07/16 23:59 37.0 69 18 112/74 98 Room Air 05/07/16 20:00 Room Air 05/07/16 19:40 37.1 63 16 101/61 96 05/07/16 16:00 Room Air 05/07/16 15:20 37.1 66 16 96/59 96 Room Air Physical Exam General Appearance: + thin, + pertinent finding (frail, chronically ill looking ) Eyes: normal inspection, PERRL, EOMI, sclerae normal ENT: normal ENT inspection, hearing grossly normal, pharynx normal Respiratory/Chest: + decreased breath sounds Cardiovascular: regular rate, rhythm, no gallop, no JVD, no murmur, + pertinent finding (3+ swelling) Abdomen: normal bowel sounds, non tender, soft, no organomegaly, no pulsatile mass Extremities: non-tender, normal inspection, no pedal edema, no calf tenderness , normal capillary refill, pelvis stable, + swelling Neurologic/Psychiatric: yarn man II-XII nml as tested, no motor/sensory deficits, alert, normal mood/affect, oriented x 3, + abnormal cerebellar tests Skin: normal color, warm/dry, no rash Laboratory Results Last 24 Hours Test 05/08/16 06:01 Sodium Level 135 mmol/L Potassium Level 4.1 mmol/L Chloride Level 99 mmol/L Carbon Dioxide Level 27 mmol/L Anion Gap 9.0 mmol/L Blood Urea Nitrogen 24 mg/dl Creatinine 1.00 mg/dl Est Creatinine Clear Calc Drug Dose 52.5 ml/min Estimated GFR () 68.5 Estimated GFR (Non- 59.1 BUN/Creatinine Ratio 23.7 Random Glucose 89 mg/dl Calcium Level 9.2 mg/dl Magnesium Level 2.6 mg/dl Assessment and Plan 65 year-old admitted on 05/02/2016 because of CHF/NSTEMI/anasarca/hypokalemia/ hypomagnesemia/hypoalbuminemia, stable and possible minimal improving Acute on chronic systolic CHF/NSTEMI/anasarca: Stable and continue improving Ischemic cardiomyopathy Severe coronary artery disease, FLP panel checked, total cholesterol 170, LDL 96, I will not add to statin medication because total cholesterol and LDL level is not significantly high Continue aspirin and beta lubna and ARB Had left cardiac cath 05/05/2016: Intracardiac filling pressures not terribly high and cardiac output reasonable on RHC LHC showed severe CAD involving LAD. Unclear if anterior, anterolateral wall viable\ more than 5 L negative output since admission Continue Lasix IV at 40 mg IV twice a day, add Aldactone on 05/07/2016 continue beta lubna and ARB cont fluid restriction, 2 g sodium diet, watch for kidney function Change KAIT inhibitor to losartan because hx of KAIT inhibitor caused headache Follow-up electrolyte, Continue to be stable and kidney function tolerates well Today's creatinine is continue better, which remains tolerate diuretic cardiac rhythm monitoring, 2-D echocardiogram with Dopplers was done, results in below Replace both potassium and magnesium orally and IV. Discussed with gray tender echo results done today on 05/03/2016, because in below *1. Moderately dilated LV. Mild concentric LVH. * 2. Severe global LV dysfunction. LVEF 15-20%. * 3. Mildly dilated RV with mild RV dysfunction. * 4. Mild mitral regurgitation. Mild TR * 5. Borderline Pulmonary hypertension (Est PASP 35-40 mmHg). Elevated CVP (Est RA 15 mmHg). * 6. Large left pleural effusion. * 7. No prior studies for comparison. Minimal elevated troponin upon admission, likely because of demanding ischemia, we will follow-up Possible acute kidney injury upon admissions likely from the kidney congestion from CHF, which is supported by improving renal function after Lasix Continue follow-up Asymptomatic Serrati UTI change to Augmentin per sensitivity, need to be total 2/7 days with history of the kidney infection, Migraine headache: Stable continue verapamil 180 mg by mouth at bedtime, Topamax 50 mg by mouth every afternoon, Fioricet when necessary, Imitrex when necessary. Low T3 level with the Hypothyroidism/history of thyroid myxedema: Stable TSH was normal and free T4 was normal continue current dose of levothyroxine sodium at 225 g by mouth daily Positive [place], the initial purpose to check [place] was for their etiology of cardiomyopathy, now has answers for that, [place] positive possible not any meaningful, patient reportedly was having [place] positive history and primary care physician knows that Patient prefers not to have further evaluations such as to rule out lupus disease, but she prefers to continue follow-up with PCP about this Anxiety/depression: Stable continue Paxil 10 mg by mouth daily, is on Ativan as needed , discussed with her to adjust the medication, she prefers to follow-up with PCP or Dr. Barros about this continue fluid restriction and 2 g sodium diet increase activity PT/OT, check vitamin D level, possible discharge to home when changed to oral diuretic after approaching to dry weight DVT prophylaxis covered Continued [facility] stay due to: multiple IV medications needed Discharge planning: home
[2016-05-08] MEDS: TOPIRAMATE 25 MG TAB PO SCH (20:08)
[2016-05-08] MEDS: PAROXETINE 20 MG TAB PO SCH (20:08)
[2016-05-09 03:52] VITALS: BP 101/60; PULSE 64; TEMP 36.8; O2SAT 95
[2016-05-09] MEDS: LEVOTHYROXINE 112 MCG TAB PO SCH (05:19)
[2016-05-09 08:03] VITALS: BP 94/56; PULSE 61; TEMP 36.6; O2SAT 94
[2016-05-09] MEDS: SPIRONOLACTONE 100 MG TAB PO SCH (08:33)
[2016-05-09] MEDS: LOSARTAN POTASSIUM 25 MG TAB PO SCH (08:56)
[2016-05-09] MEDS: ATORVASTATIN 20 MG TAB PO SCH (08:56)
[2016-05-09] MEDS: VITAMIN B COMPLEX TAB PO SCH (08:56)
[2016-05-09] MEDS: FUROSEMIDE INJ 40 MG in SYRINGE 0 ML IV SCH ×2 (08:56→16:59)
[2016-05-09] MEDS: ASPIRIN 81 MG ECTAB PO SCH (08:56)
[2016-05-09] MEDS: CARVEDILOL 3.125 MG TAB PO SCH (08:56)
[2016-05-09] MEDS: AMOXICILLIN/CLAVULANATE TAB 875 MG TAB PO SCH ×2 (08:56→16:59)
[2016-05-09] MEDS: POTASSIUM CHLORIDE 20 MEQ TABCR PO SCH (08:57)
[2016-05-09] MEDS: CHOLECALCIFEROL 1000 INTER.UNIT TAB PO SCH (08:57)
--- NOTE | 2016-05-09 09:12 | Cardiology Follow-Up ---
Subjective Subjective Date of Service: May 09, 2016. Pt evaluation today including: conversation w/ patient, physical exam, chart review, lab review, review of studies, review of inpatient medication list Additional Details: Feels tired and tired of being here. Concerned about being able to care for herself at home. No chest pain. No significant shortness of breath Problem List Medical Problems: (1) Congestive heart failure Status: Acute (2) Hypokalemia Status: Acute Review of Systems Constitutional: + fatigue, + weakness Respiratory: + shortness of breath Cardiac: No chest pain Abdomen: No nausea, No pain Psychiatric: + depression symptoms Heme: No abnormal bleeding/bruising, No clotting problems, No night sweats, No swollen lymph nodes Endo: + fatigue Skin: No rash Objective Vital Signs Last Vital Signs Documentation Date Time Temp Pulse Resp B/P Pulse Ox O2 Delivery O2 Flow Rate FiO2 05/09/16 08:03 36.6 61 16 94/56 94 Room Air 05/05/16 17:00 6 Physical Exam: General Appearance: + thin, + pertinent finding (frail, chronically ill looking ) Respiratory/Chest: chest non-tender, lungs clear Cardiovascular: regular rate, rhythm, no gallop, no JVD Abdomen: non tender, soft Extremities: + swelling (2+ pitting edema to knees) Neurologic/Psychiatric: alert, oriented x 3 Skin: normal color, warm/dry, no rash Assessment and Plan 1. Acute systolic heart failure 2. Ischemic cardiomyopathy 3. Severe coronary artery disease 4. Relative hypotension Persistent systemic venous congestion today on exam. Positive net fluid balance yesterday although weight down. LHC showed severe CAD involving LAD. Unclear if anterior, anterolateral wall viable --> will need stress with viability -- For now recommend continued diuresis, 40 IV BID, limit free water to less 1500 ml per day -- in setting of relative hypotension would hold spironolactone--> if pressure stable would resume at 25 mg daily -- Will plan on stress/viability study today -- continue ASA, high dose statin -- continue ARB, coreg Will continue to follow. Continued [facility] stay due to: multiple IV medications needed Discharge planning: home Medications: Current Inpatient Medications Medications (Trade) Dose Ordered Sig/Joann Route Start Time Stop Time Status Last Admin Dose Admin Acetaminophen (Tylenol Tab) 650 mg Q4H PRN PO 05/02/16 16:30 06/01/16 16:29 05/04/16 19:54 650 MG Acetaminophen/ Butalbital/ Caffeine (Fioricet Tab) 1 tab DAILY PRN PO 05/02/16 16:30 06/01/16 16:29 Levothyroxine Sodium (Synthroid Tab) 224 mcg DAILYBB PO 05/03/16 06:00 06/02/16 05:59 05/09/16 05:19 224 MCG Sumatriptan Succinate (Imitrex Tab) 50 mg DAILY PRN PO 05/02/16 16:30 06/01/16 16:29 Topiramate (Topamax Tab) 50 mg QPM PO 05/02/16 21:00 06/01/16 20:59 05/08/16 20:08 50 MG Vitamin B Complex (Vitamin B Complex) 1 tab QAM PO 05/03/16 09:00 06/02/16 08:59 05/09/16 08:56 1 TAB Cholecalciferol (Vitamin D Tab) 5,000 inter.unit QAM PO 05/03/16 09:00 06/02/16 08:59 05/09/16 08:57 5,000 INTER.UNIT Paroxetine HCl (pAXil TAB) 10 mg QPM PO 05/02/16 21:00 06/01/16 20:59 05/08/16 20:08 10 MG Lorazepam (Ativan Inj) 0.5 mg Q4H PRN IV 05/02/16 16:45 06/01/16 16:44 Lorazepam (Ativan Inj) 1 mg Q4H PRN IV 05/02/16 16:45 06/01/16 16:44 Magnesium Hydroxide (Milk Of Magnesia Susp) 30 ml Q6H PRN PO 05/02/16 16:45 06/01/16 16:44 Bisacodyl (Dulcolax Supp) 10 mg DAILY PRN [place] 05/02/16 16:45 06/01/16 16:44 Diphenhydramine HCl (Benadryl Inj) 25 mg Q4H PRN IV 05/02/16 16:45 06/01/16 16:44 Al Hydrox/Mg Hydrox/ Simethicone 15 ml 15 ml Q4H PRN PO 05/02/16 16:45 06/01/16 16:44 05/08/16 20:08 15 ML Promethazine HCl/ Sodium Chloride (Phenergan Inj/ Nss 50ml) 50.5 ml @ 202 mls/hr Q4H PRN IV 05/02/16 16:45 06/01/16 16:44 Zolpidem Tartrate (Ambien Tab) 5 mg HSZ PRN PO 05/02/16 16:45 06/01/16 16:44 Ondansetron HCl (Zofran Inj) 4 mg Q6H PRN IV 05/02/16 16:45 06/01/16 16:44 05/04/16 23:22 4 MG Morphine Sulfate (MoRPHine SULFATE INJ) 2 mg Q2H PRN IV 05/02/16 16:45 05/16/16 16:44 Morphine Sulfate (MoRPHine SULFATE INJ) 4 mg Q2H PRN IV 05/02/16 16:45 05/16/16 16:44 Carvedilol (Coreg Tab) 3.125 mg DAILY PO 05/04/16 09:00 06/03/16 08:59 05/09/16 08:56 3.125 MG Sodium Chloride ([place] Nasal [place]) 1 sprays Q2H PRN NA 05/04/16 09:45 06/03/16 09:44 Losartan Potassium (coZAAR TAB) 25 mg QAM PO 05/06/16 09:00 06/05/16 08:59 05/08/16 09:10 25 MG Aspirin (Ecotrin Tab) 81 mg QAM PO 05/06/16 09:00 06/05/16 08:59 05/09/16 08:56 81 MG Potassium Chloride (Klor-Con Tab) 20 meq DAILY PO 05/07/16 09:00 06/06/16 08:59 05/09/16 08:57 20 MEQ Amoxicillin/ Clavulanate Potassium 875 mg 875 mg BIDM PO 05/07/16 08:00 05/12/16 16:44 05/09/16 08:56 875 MG Furosemide/Syringe (Lasix Inj/ Syringe) 4 ml @ 4 mls/min BID17 IV 05/07/16 17:00 06/06/16 16:59 05/09/16 08:56 4 MLS/MIN Spironolactone (Aldactone Tab) 100 mg QAM PO 05/08/16 09:00 06/07/16 08:59 05/08/16 07:51 100 MG Atorvastatin Calcium (Lipitor Tab) 20 mg QAM PO 05/09/16 09:00 06/08/16 08:59 05/09/16 08:56 20 MG
[2016-05-09] MEDS ORDERED: REGADENOSON 0.4 MG/5 ML SYR ONE (11:25)
[2016-05-09 15:39] VITALS: BP 94/57; PULSE 69; TEMP 36.5; O2SAT 94
--- NOTE | 2016-05-09 19:02 | Progress Note ---
Subjective Date of Service: May 09, 2016. Subjective Pt evaluation today including: conversation w/ patient, physical exam, chart review, lab review, review of studies, conversation w/ environmental remediation consultant, review of inpatient medication list feels fatigued feels anxious - worried about how she's going to be able to take care of herself at home, worried about how she's going to take care of her dogs. upset with herself for not taking as good a care of her dogs as she wanted as she was declining in health at home does not like IV lasix, Ok w taking PO worried about life moving forward ex smoker quit a long time ago Problem List Medical Problems: (1) Congestive heart failure Status: Acute (2) Hypokalemia Status: Acute Review of Systems Constitutional: + fatigue, + weakness Psychiatric: + anxiety, + depression symptoms, + insomnia, + see HPI ros otherwise negative except for as above Objective Vital Signs Date Time Temp Pulse Resp B/P Pulse Ox O2 Delivery O2 Flow Rate FiO2 05/09/16 16:00 Room Air 05/09/16 15:39 36.5 69 20 94/57 94 Room Air 05/09/16 12:00 Room Air 05/09/16 08:03 36.6 61 16 94/56 94 Room Air 05/09/16 08:00 Room Air 05/09/16 04:00 Room Air 05/09/16 03:52 36.8 64 18 101/60 95 Room Air 05/08/16 23:59 Room Air 05/08/16 23:22 36.6 68 16 100/65 95 Room Air 05/08/16 20:00 Room Air 05/08/16 19:53 36.8 70 16 93/55 95 Room Air Physical Exam General Appearance: no apparent distress Eyes: EOMI ENT: hearing grossly normal Neck: trachea midline Respiratory/Chest: no respiratory distress, no accessory muscle use, + rales ( very very faint at bases, otherwise cta b/l no rrw elsewhere good effort) Extremities: normal range of motion Neurologic/Psychiatric: board member II-XII nml as tested, alert Skin: normal color Assessment and Plan 65 year-old admitted on 05/02/2016 because of CHF/NSTEMI/anasarca/hypokalemia/ hypomagnesemia/hypoalbuminemia Acute on chronic systolic CHF/NSTEMI/anasarca: Stable and continue improving Ischemic cardiomyopathy - unfortunately nuc med does not show viability for potential reperfusion Severe coronary artery disease Continue current med management- can reduce lasix to PO however, and follow coronary artery disease: Intracardiac filling pressures not terribly high and cardiac output reasonable on RHC LHC showed severe CAD involving LAD. Unclear if anterior, anterolateral wall viable\ ongoing med management and lifestyle changes echo results done on 05/03/2016, because in below *1. Moderately dilated LV. Mild concentric LVH. * 2. Severe global LV dysfunction. LVEF 15-20%. * 3. Mildly dilated RV with mild RV dysfunction. * 4. Mild mitral regurgitation. Mild TR * 5. Borderline Pulmonary hypertension (Est PASP 35-40 mmHg). Elevated CVP (Est RA 15 mmHg). * 6. Large left pleural effusion. * 7. No prior studies for comparison. Minimal elevated troponin upon admission, likely because of demand ischemia Possible acute kidney injury upon admissions likely from CHF, which is supported by improving renal function after Lasix Continue follow-up Asymptomatic Serrati UTI finish Augmentin Migraine headache: Stable continue verapamil 180 mg by mouth at bedtime, Topamax 50 mg by mouth every afternoon, Fioricet when necessary, Imitrex when necessary. Low T3 level with the Hypothyroidism/history of thyroid myxedema: Stable TSH was normal and free T4 was normal continue current dose of levothyroxine sodium at 225 g by mouth daily Positive [place], the initial purpose to check [place] was for their etiology of cardiomyopathy, low level titer at 1:40 outpt f/u Anxiety/depression: offered empathy and support continue Paxil 10 mg by mouth daily, is on Ativan as needed increase activity PT/OT, home w home health and cardiac rehab vs rehab depending on mobility/PT/OT
[2016-05-09 19:38] VITALS: BP 93/60; PULSE 74; TEMP 36.8; O2SAT 94
[2016-05-09] MEDS: PAROXETINE 20 MG TAB PO SCH (19:46)
[2016-05-09] MEDS: TOPIRAMATE 25 MG TAB PO SCH (19:47)
[2016-05-09 23:40] VITALS: BP 93/58; PULSE 72; TEMP 36.6; O2SAT 95
[2016-05-10 04:38] VITALS: BP 104/65; PULSE 72; TEMP 36.8; O2SAT 97
[2016-05-10] MEDS: LEVOTHYROXINE 112 MCG TAB PO SCH (06:10)
[2016-05-10] MEDS: SPIRONOLACTONE 100 MG TAB PO SCH (08:09)
[2016-05-10] MEDS: AMOXICILLIN/CLAVULANATE TAB 875 MG TAB PO SCH ×2 (08:09→17:26)
[2016-05-10] MEDS: CHOLECALCIFEROL 1000 INTER.UNIT TAB PO SCH (08:09)
[2016-05-10] MEDS: ATORVASTATIN 20 MG TAB PO SCH (08:09)
[2016-05-10] MEDS: ASPIRIN 81 MG ECTAB PO SCH (08:09)
[2016-05-10] MEDS: POTASSIUM CHLORIDE 20 MEQ TABCR PO SCH (08:09)
[2016-05-10] MEDS: CARVEDILOL 3.125 MG TAB PO SCH (08:10)
[2016-05-10] MEDS: VITAMIN B COMPLEX TAB PO SCH (08:10)
[2016-05-10] MEDS: LOSARTAN POTASSIUM 25 MG TAB PO SCH (08:10)
[2016-05-10] MEDS: FUROSEMIDE 40 MG TAB PO SCH ×2 (08:10→17:26)
[2016-05-10 08:14] VITALS: BP 90/57; PULSE 60; TEMP 36.8; O2SAT 95
--- NOTE | 2016-05-10 08:58 | MYOCARDIAL PERFUSION SCAN ---
DATE OF STUDY: 05/09/2016. STUDY TITLE: ONE-DAY NUCLEAR MEDICINE TECHNETIUM-99M CARDIOLITE MYOCARDIAL PERFUSION SCAN INDICATION: New onset heart failure with cardiomyopathy. STRESS EKG: Baseline shows normal sinus rhythm with left atrial enlargement, possible anterior infarct and inferior T-wave inversions. With stress there were occasional PACs, occasional PVCs, but no significant ST abnormalities. Heart rate sandra from 68 up to 79. Baseline blood pressure 105/71 up to 108/60 with stress. TECHNIQUE: For the stress portion of this study 33.3 mCi of technetium-99m Cardiolite was injected IV at 1305 p.m. on 05/09/2016. Thirty minutes following the injection, imaging of the heart was performed in multiple projections. For the rest portion of the study 10.9 mCi of technetium-99m Cardiolite was injected IV at 11:15 a.m. One hour following injection, imaging of the heart was performed in the same projections. FINDINGS: Raw images were reviewed in detail. This was a good technical quality study. There was some uptake impacting the inferior imaging border of the heart on both the stress and rest images. Otherwise, there was no significant extracardiac pathologic uptake. The short axis, vertical long axis, and horizontal long axis images were reviewed in detail. There was a large severe mid anterior anteroseptal defect extending through the apical segments to the apex without significant reversibility. There was minimal evidence of viability in the mid anterior anteroseptal, apical anterior, apical septal and true apex. Overall, some rest score was 22 pertaining to a defect impacting 32% of the heart. The LV was severely dilated with an end-diastolic volume of 253 mL, end systolic volume of 208, apical segment appeared borderline aneurysm. EF was calculated at 18%. There was mild hypokinesis involving the inferior, the basilar inferior lateral and inferolateral segments. The mid anterior, anterior septum and apical segments were all akinetic with the true apex apparent dyskinetic. Remainder of segments were moderately hypokinesis. IMPRESSION: 1. Large severe fixed perfusion defect involving the mid anterior, anteroseptum and apical segments without significant reversibility consistent with large left anterior descending infarct. 2. No significant stress induced ischemia. 3. No significant resting viability in left anterior descending artery distribution. 4. Dilated left ventricle with severe left ventricular dysfunction, EF of 18%. Left anterior descending distribution is akinetic and with dyskinesis in the true apex. 5. Nondiagnostic stress EKG in the setting of not reaching target heart rate. MTDD
[2016-05-10 12:07] VITALS: BP_SYST 87; BP_SYST 89; BP_DIAS 59; BP_DIAS 60; PULSE 68; TEMP 36.6; O2SAT 95
--- NOTE | 2016-05-10 12:56 | Cardiology Follow-Up ---
Subjective Subjective Date of Service: May 10, 2016. Pt evaluation today including: conversation w/ patient, physical exam, chart review, lab review, review of studies, review of inpatient medication list Additional Details: Patient up walking halls earlier. At present feels very fatigued. Also endorses feeling depressed. No chest pain. Breathing stable. No events on telemetry Problem List Medical Problems: (1) Congestive heart failure Status: Acute (2) Hypokalemia Status: Acute Review of Systems Constitutional: + fatigue, + weakness Respiratory: + shortness of breath Cardiac: No chest pain Abdomen: No nausea, No pain Psychiatric: + anxiety, + depression symptoms, + insomnia, + see HPI Heme: No abnormal bleeding/bruising, No clotting problems, No night sweats, No swollen lymph nodes Endo: + fatigue Skin: No rash Objective Vital Signs Last Vital Signs Documentation Date Time Temp Pulse Resp B/P Pulse Ox O2 Delivery O2 Flow Rate FiO2 05/10/16 12:07 36.6 68 16 89/59 95 Room Air 87/60 05/05/16 17:00 6 Physical Exam: General Appearance: no apparent distress ENT: hearing grossly normal Respiratory/Chest: no respiratory distress, no accessory muscle use Cardiovascular: regular rate, rhythm, no gallop, no JVD, + pertinent finding (2 + pitting edema to knees bilaterally.) Abdomen: non tender, soft Extremities: normal range of motion Neurologic/Psychiatric: family day care provider II-XII nml as tested, alert Skin: normal color Assessment and Plan 1. Acute systolic heart failure 2. Ischemic cardiomyopathy 3. Severe coronary artery disease 4. Relative hypotension Still with systemic venous congestion on exam today. Reviewed stress test from yesterday - severe LV dysfunction, large LAD distribution infarct without significant ischemia or viability In that setting unlikely to benefit significantly from attempts at revascularization. Plan for continued optimization of guideline directed medical therapy. -- Agree with trial of PO diuretics today, continue to target negative 500-1L fluid balance. check electrolytes/renal function in AM -- Continue beta-lubna, ARB --> titrate up ARB as able. -- Continue on spironolactone 25 mg daily -- continue ASA. 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 Brought up idea of LifeVest in interim - she will think about it. Medications: Current Inpatient Medications Medications (Trade) Dose Ordered Sig/Joann Route Start Time Stop Time Status Last Admin Dose Admin Acetaminophen (Tylenol Tab) 650 mg Q4H PRN PO 05/02/16 16:30 06/01/16 16:29 05/04/16 19:54 650 MG Acetaminophen/ Butalbital/ Caffeine (Fioricet Tab) 1 tab DAILY PRN PO 05/02/16 16:30 06/01/16 16:29 Levothyroxine Sodium (Synthroid Tab) 224 mcg DAILYBB PO 05/03/16 06:00 06/02/16 05:59 05/10/16 06:10 224 MCG Sumatriptan Succinate (Imitrex Tab) 50 mg DAILY PRN PO 05/02/16 16:30 06/01/16 16:29 05/10/16 10:28 50 MG Topiramate (Topamax Tab) 50 mg QPM PO 05/02/16 21:00 06/01/16 20:59 05/09/16 19:47 50 MG Vitamin B Complex (Vitamin B Complex) 1 tab QAM PO 05/03/16 09:00 06/02/16 08:59 05/10/16 08:10 1 TAB Cholecalciferol (Vitamin D Tab) 5,000 inter.unit QAM PO 05/03/16 09:00 06/02/16 08:59 05/10/16 08:09 5,000 INTER.UNIT Paroxetine HCl (pAXil TAB) 10 mg QPM PO 05/02/16 21:00 06/01/16 20:59 05/09/16 19:46 10 MG Lorazepam (Ativan Inj) 0.5 mg Q4H PRN IV 05/02/16 16:45 06/01/16 16:44 Lorazepam (Ativan Inj) 1 mg Q4H PRN IV 05/02/16 16:45 06/01/16 16:44 Magnesium Hydroxide (Milk Of Magnesia Susp) 30 ml Q6H PRN PO 05/02/16 16:45 06/01/16 16:44 Bisacodyl (Dulcolax Supp) 10 mg DAILY PRN [place] 05/02/16 16:45 06/01/16 16:44 Diphenhydramine HCl (Benadryl Inj) 25 mg Q4H PRN IV 05/02/16 16:45 06/01/16 16:44 Al Hydrox/Mg Hydrox/ Simethicone 15 ml 15 ml Q4H PRN PO 05/02/16 16:45 06/01/16 16:44 05/08/16 20:08 15 ML Promethazine HCl/ Sodium Chloride (Phenergan Inj/ Nss 50ml) 50.5 ml @ 202 mls/hr Q4H PRN IV 05/02/16 16:45 06/01/16 16:44 Zolpidem Tartrate (Ambien Tab) 5 mg HSZ PRN PO 05/02/16 16:45 06/01/16 16:44 Ondansetron HCl (Zofran Inj) 4 mg Q6H PRN IV 05/02/16 16:45 06/01/16 16:44 05/04/16 23:22 4 MG Morphine Sulfate (MoRPHine SULFATE INJ) 2 mg Q2H PRN IV 05/02/16 16:45 05/16/16 16:44 Morphine Sulfate (MoRPHine SULFATE INJ) 4 mg Q2H PRN IV 05/02/16 16:45 05/16/16 16:44 Carvedilol (Coreg Tab) 3.125 mg DAILY PO 05/04/16 09:00 06/03/16 08:59 05/10/16 08:10 3.125 MG Sodium Chloride ([place] Nasal [place]) 1 sprays Q2H PRN NA 05/04/16 09:45 06/03/16 09:44 Losartan Potassium (coZAAR TAB) 25 mg QAM PO 05/06/16 09:00 06/05/16 08:59 05/10/16 08:10 25 MG Aspirin (Ecotrin Tab) 81 mg QAM PO 05/06/16 09:00 06/05/16 08:59 05/10/16 08:09 81 MG Potassium Chloride (Klor-Con Tab) 20 meq DAILY PO 05/07/16 09:00 06/06/16 08:59 05/10/16 08:09 20 MEQ Amoxicillin/ Clavulanate Potassium (Augmentin Tab) 875 mg BIDM PO 05/07/16 08:00 05/12/16 16:44 05/10/16 08:09 875 MG Spironolactone (Aldactone Tab) 100 mg QAM PO 05/08/16 09:00 06/07/16 08:59 05/10/16 08:09 100 MG Atorvastatin Calcium (Lipitor Tab) 20 mg QAM PO 05/09/16 09:00 06/08/16 08:59 05/10/16 08:09 20 MG Furosemide (Lasix Tab) 40 mg BID17 PO 05/10/16 09:00 06/09/16 08:59 05/10/16 08:10 40 MG
[2016-05-10 16:39] VITALS: BP 90/62; PULSE 78; TEMP 36.5; O2SAT 93
--- NOTE | 2016-05-10 20:07 | Progress Note ---
Subjective Date of Service: May 10, 2016. Subjective Pt evaluation today including: conversation w/ patient, physical exam, chart review, lab review, review of inpatient medication list slept about 3hrs last night - just not able to rest in hospital. hard to really tell how she's feeling outside of fatigue and feeling down about situation. wants to go home to be able to take care of dogs. d/w her frankly about having to then transition from hospital to fully being responsible for herself - that outpt therapy/cardiac rehab would be helpful in getting her stronger but would not provide round the clock support while she's still so weak. after these discussions she was more amenable to rehab or SNF Problem List Medical Problems: (1) Congestive heart failure Status: Acute (2) Hypokalemia Status: Acute Review of Systems ros otherwise negative except for as above Objective Vital Signs Date Time Temp Pulse Resp B/P Pulse Ox O2 Delivery O2 Flow Rate FiO2 05/10/16 16:39 36.5 78 16 90/62 93 Room Air 05/10/16 16:00 Room Air 05/10/16 12:07 36.6 68 16 89/59 95 Room Air 87/60 05/10/16 12:00 Room Air 05/10/16 08:14 36.8 60 16 90/57 95 Room Air 05/10/16 08:00 Room Air 05/10/16 04:38 36.8 72 18 104/65 97 Room Air 05/10/16 04:00 Room Air 05/10/16 00:00 Room Air 05/09/16 23:40 36.6 72 20 93/58 95 Room Air Physical Exam General Appearance: no apparent distress (fatigued appearing) Eyes: EOMI ENT: hearing grossly normal Neck: trachea midline Respiratory/Chest: no respiratory distress, no accessory muscle use Extremities: normal range of motion 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 Unclear if anterior, anterolateral wall viable\ ongoing med management and lifestyle changes echo results done on 05/03/2016, because in below *1. Moderately dilated LV. Mild concentric LVH. * 2. Severe global LV dysfunction. LVEF 15-20%. * 3. Mildly dilated RV with mild RV dysfunction. * 4. Mild mitral regurgitation. Mild TR * 5. Borderline Pulmonary hypertension (Est PASP 35-40 mmHg). Elevated CVP (Est RA 15 mmHg). * 6. Large left pleural effusion. * 7. No prior studies for comparison. Minimal elevated troponin upon admission, likely because of demand ischemia Possible acute kidney injury upon admissions likely from CHF, which is supported by improving renal function after Lasix Continue follow-up Asymptomatic Serrati UTI finish Augmentin Migraine headache: Stable continue verapamil 180 mg by mouth at bedtime, Topamax 50 mg by mouth every afternoon, Fioricet when necessary, Imitrex when necessary. Low T3 level with the Hypothyroidism/history of thyroid myxedema: Stable TSH was normal and free T4 was normal continue current dose of levothyroxine sodium at 225 g by mouth daily Positive [place], the initial purpose to check [place] was for their etiology of cardiomyopathy, low level titer at 1:40 outpt f/u Anxiety/depression: offered empathy and support continue Paxil 10 mg by mouth daily, is on Ativan as needed appearing to need rehab. would not do well at home w current degree of weakness. referral made. stable for med/surg pending authorization
[2016-05-10] MEDS: TOPIRAMATE 25 MG TAB PO SCH (20:28)
[2016-05-10] MEDS: PAROXETINE 20 MG TAB PO SCH (20:28)
[2016-05-10 20:30] VITALS: BP 97/60; PULSE 75; TEMP 36.6; O2SAT 96
[2016-05-10 22:45] VITALS: BP 89/59; PULSE 71; TEMP 37; O2SAT 95
[2016-05-11] MEDS: LEVOTHYROXINE 112 MCG TAB PO SCH (06:02)
[2016-05-11 07:51] VITALS: BP 121/76; PULSE 55; TEMP 36.6; O2SAT 95
[2016-05-11] MEDS: CARVEDILOL 3.125 MG TAB PO SCH (08:00)
[2016-05-11] MEDS: SPIRONOLACTONE 100 MG TAB PO SCH (08:10)
[2016-05-11] MEDS: AMOXICILLIN/CLAVULANATE TAB 875 MG TAB PO SCH (08:11)
[2016-05-11] MEDS: FUROSEMIDE 40 MG TAB PO SCH (08:11)
[2016-05-11] MEDS: LOSARTAN POTASSIUM 25 MG TAB PO SCH (08:13)
[2016-05-11] MEDS: ASPIRIN 81 MG ECTAB PO SCH (08:13)
[2016-05-11] MEDS: VITAMIN B COMPLEX TAB PO SCH (08:14)
[2016-05-11] MEDS: POTASSIUM CHLORIDE 20 MEQ TABCR PO SCH (08:14)
[2016-05-11] MEDS: ATORVASTATIN 20 MG TAB PO SCH (08:14)
[2016-05-11] MEDS: CHOLECALCIFEROL 1000 INTER.UNIT TAB PO SCH (08:15)
[2016-05-11] MEDS ORDERED: AMINOPHYLLINE 25 MG/ML 20ML VIAL IV ONE (08:55)
--- NOTE | 2016-05-11 14:19 | Cardiology Follow-Up ---
Subjective Subjective Date of Service: May 11, 2016. Pt evaluation today including: conversation w/ patient, physical exam, chart review, lab review, review of studies, review of inpatient medication list Additional Details: Feeling somewhat better today. Denies significant shortness of breath. Denies chest pain. Energy somewhat improved. No other new complaints. Problem List Medical Problems: (1) Congestive heart failure Status: Acute (2) Hypokalemia Status: Acute Review of Systems Constitutional: + fatigue, + weakness Respiratory: + shortness of breath Cardiac: No chest pain Abdomen: No nausea, No pain Psychiatric: + anxiety, + depression symptoms, + insomnia, + see HPI Heme: No abnormal bleeding/bruising, No clotting problems, No night sweats, No swollen lymph nodes Endo: + fatigue Skin: No rash Objective Vital Signs Last Vital Signs Documentation Date Time Temp Pulse Resp B/P Pulse Ox O2 Delivery O2 Flow Rate FiO2 05/11/16 08:00 Room Air 05/11/16 07:51 36.6 55 16 121/76 95 2.0 Physical Exam: General Appearance: no apparent distress (fatigued appearing) ENT: hearing grossly normal Respiratory/Chest: no respiratory distress, no accessory muscle use Cardiovascular: regular rate, rhythm, no gallop, no JVD, + pertinent finding (2 + pitting edema to knees bilaterally.) Abdomen: non tender, soft Extremities: normal range of motion Neurologic/Psychiatric: alert, + depressed affect Skin: normal color, warm/dry Assessment and Plan 1. Acute systolic heart failure--net even overnight, still with 2+ lower extremity edema on exam today 2. Ischemic cardiomyopathy--severe LV dysfunction large LAD distribution infarct without significant ischemia or viability on stress 3. Severe coronary artery disease--occluded mid LAD, diffusely disease distal LAD fills via [id number] collaterals 4. Relative hypotension--relatively stable Relatively stable today on p.o. diuretics. Ideally like to target continued negative fluid balance. Suspect would need to increase p.o. Lasix to achieve significant net negative balance. Patient reluctant to increase current diuretics and for now would continue on current regimen. Check a.m. electrolytes, renal function Would cut back or discontinue spironolactone Continue current beta-lubna and ARB Continue ASA, statin From a cardiac standpoint feel that could be transferred to rehab with plans for close cardiology follow-up in the near future. Will discuss ICD at future follow-ups. Medications: Current Inpatient Medications Medications (Trade) Dose Ordered Sig/Joann Route Start Time Stop Time Status Last Admin Dose Admin Acetaminophen (Tylenol Tab) 650 mg Q4H PRN PO 05/02/16 16:30 06/01/16 16:29 05/04/16 19:54 650 MG Acetaminophen/ Butalbital/ Caffeine (Fioricet Tab) 1 tab DAILY PRN PO 05/02/16 16:30 06/01/16 16:29 Levothyroxine Sodium (Synthroid Tab) 224 mcg DAILYBB PO 05/03/16 06:00 06/02/16 05:59 05/11/16 06:02 224 MCG Sumatriptan Succinate (Imitrex Tab) 50 mg DAILY PRN PO 05/02/16 16:30 06/01/16 16:29 05/10/16 10:28 50 MG Topiramate (Topamax Tab) 50 mg QPM PO 05/02/16 21:00 06/01/16 20:59 05/10/16 20:28 50 MG Vitamin B Complex (Vitamin B Complex) 1 tab QAM PO 05/03/16 09:00 06/02/16 08:59 05/11/16 08:14 1 TAB Cholecalciferol (Vitamin D Tab) 5,000 inter.unit QAM PO 05/03/16 09:00 06/02/16 08:59 05/11/16 08:15 5,000 INTER.UNIT Paroxetine HCl (pAXil TAB) 10 mg QPM PO 05/02/16 21:00 06/01/16 20:59 05/10/16 20:28 10 MG Lorazepam (Ativan Inj) 0.5 mg Q4H PRN IV 05/02/16 16:45 06/01/16 16:44 Lorazepam (Ativan Inj) 1 mg Q4H PRN IV 05/02/16 16:45 06/01/16 16:44 Magnesium Hydroxide (Milk Of Magnesia Susp) 30 ml Q6H PRN PO 05/02/16 16:45 06/01/16 16:44 Bisacodyl (Dulcolax Supp) 10 mg DAILY PRN MD 05/02/16 16:45 06/01/16 16:44 Diphenhydramine HCl (Benadryl Inj) 25 mg Q4H PRN IV 05/02/16 16:45 06/01/16 16:44 Al Hydrox/Mg Hydrox/ Simethicone 15 ml 15 ml Q4H PRN PO 05/02/16 16:45 06/01/16 16:44 05/08/16 20:08 15 ML Promethazine HCl/ Sodium Chloride (Phenergan Inj/ Nss 50ml) 50.5 ml @ 202 mls/hr Q4H PRN IV 05/02/16 16:45 06/01/16 16:44 Zolpidem Tartrate (Ambien Tab) 5 mg HSZ PRN PO 05/02/16 16:45 06/01/16 16:44 Ondansetron HCl (Zofran Inj) 4 mg Q6H PRN IV 05/02/16 16:45 06/01/16 16:44 05/04/16 23:22 4 MG Morphine Sulfate (MoRPHine SULFATE INJ) 2 mg Q2H PRN IV 05/02/16 16:45 05/16/16 16:44 Morphine Sulfate (MoRPHine SULFATE INJ) 4 mg Q2H PRN IV 05/02/16 16:45 05/16/16 16:44 Carvedilol (Coreg Tab) 3.125 mg DAILY PO 05/04/16 09:00 06/03/16 08:59 05/10/16 08:10 3.125 MG Sodium Chloride ([place] Nasal [place]) 1 sprays Q2H PRN NA 05/04/16 09:45 06/03/16 09:44 Losartan Potassium (coZAAR TAB) 25 mg QAM PO 05/06/16 09:00 06/05/16 08:59 05/11/16 08:13 25 MG Aspirin (Ecotrin Tab) 81 mg QAM PO 05/06/16 09:00 06/05/16 08:59 05/11/16 08:13 81 MG Potassium Chloride (Klor-Con Tab) 20 meq DAILY PO 05/07/16 09:00 06/06/16 08:59 05/11/16 08:14 20 MEQ Amoxicillin/ Clavulanate Potassium (Augmentin Tab) 875 mg BIDM PO 05/07/16 08:00 05/12/16 16:44 05/11/16 08:11 875 MG Spironolactone (Aldactone Tab) 100 mg QAM PO 05/08/16 09:00 06/07/16 08:59 05/11/16 08:10 100 MG Atorvastatin Calcium (Lipitor Tab) 20 mg QAM PO 05/09/16 09:00 06/08/16 08:59 05/11/16 08:14 20 MG Furosemide (Lasix Tab) 40 mg BID17 PO 05/10/16 09:00 06/09/16 08:59 05/11/16 08:11 40 MG
[2016-05-11] MEDS ORDERED: CRG3125 PO (15:28)
[2016-05-11] MEDS ORDERED: CZR25 PO (15:28)
[2016-05-11] MEDS ORDERED: LSX40 PO (15:28)
[2016-05-11] MEDS ORDERED: AMOX1TAB43 PO (15:28)
[2016-05-11] MEDS ORDERED: MCRK20 PO (15:28)
[2016-05-11] MEDS ORDERED: ASPEC81 PO (15:28)
[2016-05-11] MEDS ORDERED: LPT20 PO (15:28)
[2016-05-11] MEDS ORDERED: SPRN100 PO (15:28)
[2016-05-11] MEDS ORDERED: TIZA2CAP PO (15:28)
--- NOTE | 2016-05-11 15:30 | Discharge Instructions ---
Discharge Instructions Admission Reason for Admission: Acute Chf, Nstemi Discharge Discharge Diagnosis / Problem: ischemic cardiomyopathy Discharge Goals Goal(s): Diagnostic testing, Therapeutic intervention Activity Recommendations Activity Limitations: per Instructions/Follow-up section . Instructions / Follow-Up Instructions / Follow-Up gradual return to activities via guidance of rehab physicians and therapists Call your Primary Care doctor if any of the following symptoms or problems start or get worse: * Shortness of breath or difficulty breathing * Wake up at night short of breath * Chest pain * Cough * Swelling of your hands, feet, or legs * More fatigued or tired with your normal activity * Palpitations - sudden fast heart beats WEIGHT * Weigh yourself every morning after using the bathroom. * Use the same scale. * Wear the same amount of clothing. * Write your weight down on a chart. * Call your Primary Care doctor if you gain more than 2-3 pounds in 1-2 days. MEDICATIONS * Use this discharge instruction sheet for medication instructions. * Take your medications at the time your doctor ordered. * Do not skip a dose of your medicines. * If you miss a dose of medicine, take it as soon as possible, but DO NOT DOUBLE A DOSE. * Read your medicine information when you get home. * Know all of the side effects of your medicine. If in doubt, ask your pharmacist * Call your Primary Care doctor's office if you have any side effects. * Be sure all of your doctors know what medicine and herbs you take (including cold, flu, and herbal medicine). Take the following with you to your follow-up doctor appointments: * Weight Chart * Medication List * List of questions Do not drink excessive alcohol, beer or wine. Current Hospital Diet Patient's current hospital diet: AHA Diet (Heart Healthy) Discharge Diet Recommended Diet: AHA Diet (Heart Healthy), Low Sodium Diet (2gm Na) Pending Studies Studies pending at discharge: no Laboratory Results Lipid Panel Test 05/07/16 06:30 Range/Units Triglycerides Level 75 0-150 mg/dl Cholesterol Level 153 0-200 mg/dl HDL Cholesterol 42 mg/dl Cholesterol/HDL Ratio 3.6 LDL Cholesterol, Calculated 96 mg/dl Medical Emergencies . Who to Call and When: Call 911 or go to the Emergency Room if: * If at any time you feel your situation is an emergency * You have tightness or pain in your chest that does not go away with rest or Nitroglycerin * You are very short of breath even with rest . Non-Emergent Contact Non-Emergency issues call your: Primary Care Provider, Senior Software Engineering Manager . . "Provider Documentation" section prepared by Marcelino Saunders. VTE Core Measure Inpt VTE Proph given/why not?: SCD's
--- NOTE | 2016-05-11 15:32 | Discharge Instructions ---
Discharge Instructions Admission Reason for Admission: Acute Chf, Nstemi Discharge Discharge Diagnosis / Problem: ischemic cardiomyopathy w EF ~15%, acute on chronic diastolic CHF Discharge Goals Goal(s): Diagnostic testing, Therapeutic intervention Activity Recommendations Activity Level: Assistance Required Therapies: Physical Therapy, Occupational Therapy . Additional Information Patient informed of condition: Yes Advance Directives: No DNR: No Level of Care: Acute Rehab Communicable Disease: No Prognosis: Improving Current Hospital Diet Patient's current hospital diet: AHA Diet (Heart Healthy) Discharge Diet Recommended Diet: AHA Diet (Heart Healthy), Low Sodium Diet (2gm Na) Pending Studies Studies pending at discharge: yes List of pending studies: vitamin D level Physician Orders On Transfer Additional Orders: CBC and BMP on 05/12 then as clinically warranted Laboratory Results Lipid Panel Test 05/07/16 06:30 Range/Units Triglycerides Level 75 0-150 mg/dl Cholesterol Level 153 0-200 mg/dl HDL Cholesterol 42 mg/dl Cholesterol/HDL Ratio 3.6 LDL Cholesterol, Calculated 96 mg/dl Medical Emergencies . Who to Call and When: Medical Emergencies: If at any time you feel your situation is an emergency, please call 911 immediately. . Non-Emergent Contact Non-Emergency issues call your: Primary Care Provider, Paster Operator . . "Provider Documentation" section prepared by Marcelino Saunders. Core Measure Problem Core Measures: None
[2016-05-11 15:43] VITALS: BP 121/76; PULSE 55; TEMP 36.6; O2SAT 95
--- NOTE | 2016-05-11 20:43 | Discharge Summary ---
Discharge Summary Admission Date: May 02, 2016 at 16:17 Discharge Date: May 11, 2016 Discharge Disposition: Rehab Principal Diagnosis: ischemic cardiomyopathy Procedures: nuc med viability study showing low EF without appearance of perfusion echo: Interpretation Summary * Name: WHITNEY MOONEY Study Date: 05/03/2016 08:17 AM BP: 106/69 mmHg * Patient Location: [facility]\S\[facility]\S\1 HR: 63 * : 1950 (M/d/yyyy) Gender: Female Height: 66 in * Age: 65 yrs Ethnicity: [place] Weight: 116 lb * Ordering Physician: Finn Thakur * Referring Physician: No Doctor, Assigned * Performed By: Carmelina Palomares RCS * * Reason For Study: NSTEMI * BSA: 1.6 m2 * -- Conclusions -- * 1. Moderately dilated LV. Mild concentric LVH. * 2. Severe global LV dysfunction. LVEF 15-20%. * 3. Mildly dilated RV with mild RV dysfunction. * 4. Mild mitral regurgitation. Mild TR * 5. Borderline Pulmonary hypertension (Est PASP 35-40 mmHg). Elevated CVP ( Est RA 15 mmHg). * 6. Large left pleural effusion. * 7. No prior studies for comparison. Procedure Details * A complete two-dimensional transthoracic echocardiogram was performed (2D, M- mode, Doppler and color flow Doppler). Left Ventricle * The left ventricle is moderately dilated. * There is mild concentric left ventricular hypertrophy. * Ejection Fraction = 15-20%. * There is severe global hypokinesis of the left ventricle. Right Ventricle * The right ventricle is mildly dilated. * The right ventricular systolic function is mildly reduced. Atria * The left atrial size is normal. * The right atrium is severely dilated. Mitral Valve * The mitral valve leaflets appear thickened, but open well. * There is mild mitral regurgitation. Tricuspid Valve * The tricuspid valve is not well visualized, but is grossly normal. * There is mild tricuspid regurgitation. * Borderline Pulmonary Hypertension (Estimated PASP 35-40 mmHg). Aortic Valve * The aortic valve opens well. * The aortic valve is tricuspid. The leaflet thickness if normal. There is no aortic stenosis, and no significant insufficiency. * No hemodynamically significant valvular aortic stenosis. * There is no significant aortic regurgitation. Pulmonic Valve * The pulmonary valve is inadequately visualized, but the Doppler data is adequate for interpretation. * There is no pulmonic valvular stenosis. * Trace pulmonic valvular regurgitation. Great Vessels * The aortic root and proximal ascending aorta are normal sized. Pericardium/Pleural * Trace pericardial effusion * Large left pleural effusion. Great Vessels * Dilated inferior vena cava with reduced collapsability with sniff indicates an elevated right atrial pressure of 15 mmHg Consultations: cardiology Medication Reconciliation New Medications: Tizanidine (Zanaflex) 2 Mg Cap 2 MG PO BID PRN for Severe Pain, #30 CAP Amoxicillin & Pot Clavulanate (Amoxicillin/Clavulanate P) 1 Tab Tab 875 MG PO BIDM, #5 TAB Aspirin (Aspirin EC Low Dose) 81 Mg Ectab 81 MG PO QAM, #30 Atorvastatin (Atorvastatin Calcium) 20 Mg Tab 20 MG PO QAM, #30 TAB Carvedilol (Carvedilol) 3.125 Mg Tab 3.125 MG PO DAILY, #30 TAB Furosemide (Furosemide) 40 Mg Tab 40 MG PO BID17, #60 TAB Losartan Potassium (Losartan Potassium) 25 Mg Tab 25 MG PO QAM, #30 TAB Potassium Chloride (Klor-Con M20) 20 Meq Tabcr 20 MEQ PO DAILY, #30 Spironolactone (Spironolactone) 100 Mg Tab 100 MG PO QAM, #30 TAB Continued Medications: Acetamin/Butalbital/Caffeine (Fioricet) 1 Ea Tab 1 TAB PO UD PRN for Migraine, TAB B-Complex Vitamins (Vitamin B Complex) 1 Tab Tab 1 TAB PO DAILY Cholecalciferol (Vitamin D) 5,000 Unit Tab 5000 UNITS PO DAILY Docosahexaenoic Acid (Dha) 200 Mg Cap 200 MG PO DAILY Levothyroxine Sodium (Synthroid) 112 Mcg Tab 225 MCG PO DAILY, TAB Paroxetine HCl (Paroxetine) 10 Mg Tab 10 MG PO PM Sumatriptan Succinate (Imitrex) 50 Mg Tab 50 MG PO UD PRN for Migraine, TAB Topiramate (Topamax) 50 Mg Tab 50 MG PO QPM, TAB Vitamin A-Beta Carotene (Vitamin A) 1 Tab Tab 1 TAB PO DAILY Discontinued Medications: Oxycodone-Ibuprofen 5/400MG (Combunox) 1 Tab Tab 1 TAB PO Q6H PRN for Pain, TAB Verapamil (Calan) 80 Mg Tab 180 MG PO HS, TAB Discharge Exam Physical Exam: General Appearance: no apparent distress Eyes: EOMI ENT: hearing grossly normal Neck: trachea midline Respiratory/Chest: no respiratory distress, no accessory muscle use 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 Unclear if anterior, anterolateral wall viable\ ongoing med management and lifestyle changes echo results done on 05/03/2016, because in below *1. Moderately dilated LV. Mild concentric LVH. * 2. Severe global LV dysfunction. LVEF 15-20%. * 3. Mildly dilated RV with mild RV dysfunction. * 4. Mild mitral regurgitation. Mild TR * 5. Borderline Pulmonary hypertension (Est PASP 35-40 mmHg). Elevated CVP (Est RA 15 mmHg). * 6. Large left pleural effusion. * 7. No prior studies for comparison. Minimal elevated troponin upon admission, likely because of demand ischemia Possible acute kidney injury upon admissions likely from CHF, which is supported by improving renal function after Lasix Continue follow-up BMP as outpt Asymptomatic Serrati UTI finish Augmentin Migraine headache: -outpt f/u w neurology Low T3 level with the Hypothyroidism/history of thyroid myxedema: Stable TSH was normal and free T4 was normal continue current dose of levothyroxine sodium at 225 g by mouth daily Positive [place], the initial purpose to check [place] was for their etiology of cardiomyopathy, low level titer at 1:40 outpt f/u Anxiety/depression: offered empathy and support continue Paxil 10 mg by mouth daily, is on Ativan as needed stable for rehab Total Time Spent: Less than 30 minutes This includes examination of the patient, discharge planning, medication reconciliation, and communication with other providers. Discharge Instructions Please refer to the electronic Patient Visit Report (Discharge Instructions) for additional information.
[2016-07-07] MEDS ORDERED: FURO-85 PO (15:16)
[2016-07-07] MEDS ORDERED: SPIR25TA PO (15:16)
[2016-07-07] MEDS ORDERED: CARV6.252 PO (15:17)
== END 2016-05-11 17:00 | DRG 280 ==
LOC: ENRESERVDT → ENRESERVTM → EDBD 12:29 → C.EDB 12:31 → C.2T 16:17 → EDBEDREQ 16:20 → C.MS4W 05-10 22:33
PROVIDERS: ADMIT Hospitalist; ATTEND Hospitalist
PROC: B2111ZZ Fluoroscopy of Multiple Coronary Arteries using Low Osmolar Contrast (ICD-10-PCS; 2016-05-05)
PROC: B2151ZZ Fluoroscopy of Left Heart using Low Osmolar Contrast (ICD-10-PCS; 2016-05-05)
PROC: 4A023N8 Measurement of Cardiac Sampling and Pressure, Bilateral, Percutaneous Approach (ICD-10-PCS; principal; 2016-05-05 14:42)
DX: I21.4 Non-ST elevation (NSTEMI) myocardial infarction (principal); I50.23 Acute on chronic systolic (congestive) heart failure; R64 Cachexia; N39.0 Urinary tract infection, site not specified; N17.9 Acute kidney failure, unspecified; Z91.040 Latex allergy status; Z79.899 Other long term (current) drug therapy; E83.42 Hypomagnesemia; E87.6 Hypokalemia; E88.09 Other disorders of plasma-protein metabolism, not elsewhere classified; E03.9 Hypothyroidism, unspecified; G43.909 Migraine, unspecified, not intractable, without status migrainosus; F41.9 Anxiety disorder, unspecified; F32.9 Major depressive disorder, single episode, unspecified; I25.5 Ischemic cardiomyopathy; Z82.3 Family history of stroke; D64.9 Anemia, unspecified; I25.10 Atherosclerotic heart disease of native coronary artery without angina pectoris; D72.829 Elevated white blood cell count, unspecified; E78.5 Hyperlipidemia, unspecified; Z68.20 Body mass index [BMI] 20.0-20.9, adult; G47.00 Insomnia, unspecified; I24.8 Other forms of acute ischemic heart disease; I27.2 Other secondary pulmonary hypertension; I10 Essential (primary) hypertension; I08.1 Rheumatic disorders of both mitral and tricuspid valves

== ENCOUNTER → 2016-06-08 | Outpatient (CLI) | payer BC ==
[~2016-06-08] MED LIST: AMOX1TAB43 PO; ASPEC81 PO; B-COTAB18 PO; CARV6.252 PO; CHOL1TAB42 PO; CRG3125 PO; CZR25 PO; DOCO1CAP10 PO; FRCT/ PO; FURO-85 PO; LEVO112T2 PO; LPT20 PO; LSX40 PO; MCRK20 PO; PARO10TA3 PO; SPIR25TA PO; SPRN100 PO; SUMA50TA15 PO; TIZA2CAP PO; TOPI50TA16 PO; VITATAB19 PO
[2016-06-08 15:56] LABS: BLOOD UREA NITROGEN 17 mg/dl (7-18); CALCIUM 9.9 mg/dl (8.5-10.1); CARBON DIOXIDE 31 mmol/L (21-32); CHLORIDE 103 mmol/L (98-107); GLUCOSE 100 mg/dl (70-99); SODIUM 141 mmol/L (136-145)
== END | disposition home or self-care (01) ==
LOC: C.LAB1850 14:43
PROVIDERS: ATTEND Internal Medicine Cardiovascular Disease
DX: I50.20 Unspecified systolic (congestive) heart failure (principal)

== ENCOUNTER → 2016-07-19 | Outpatient (CLI) | payer BC ==
[~2016-07-19] MED LIST changes: -AMOX1TAB43 PO; -CRG3125 PO; -DOCO1CAP10 PO; -LSX40 PO; -SPRN100 PO; -SUMA50TA15 PO
[2016-07-19 17:19] LABS: AST/SGOT 18 U/L (15-37); BLOOD UREA NITROGEN 21 mg/dl (7-18)
[2016-07-19 17:22] LABS: ALT/SGPT 23 U/L (12-78)
== END | disposition home or self-care (01) ==
LOC: C.LAB1850 15:14
PROVIDERS: ATTEND Physician Assistant
DX: S09.90XA Unspecified injury of head, initial encounter (principal); X58.XXXA Exposure to other specified factors, initial encounter; E78.00 Pure hypercholesterolemia, unspecified

== ENCOUNTER → 2016-09-29 | Outpatient (CLI) | payer BC ==
[2016-09-29 16:58] LABS: CALCIUM 9.7 mg/dl (8.5-10.1); CARBON DIOXIDE 22 mmol/L (21-32); CHLORIDE 108 mmol/L (98-107); POTASSIUM 4.2 mmol/L (3.5-5.1); SODIUM 139 mmol/L (136-145)
[2016-09-29 18:09] LABS: BLOOD UREA NITROGEN 24 mg/dl (7-18); BUN/CREATININE RATIO 19.6 (10-20); GLUCOSE 81 mg/dl (70-99)
== END | disposition home or self-care (01) ==
LOC: C.LAB1850 14:49
PROVIDERS: ATTEND Physician Assistant
DX: I42.9 Cardiomyopathy, unspecified (principal)

== ENCOUNTER → 2016-12-28 | Outpatient (CLI) | payer BC ==
[~2016-12-28] MED LIST changes: -TIZA2CAP PO
[2016-12-28 12:35] LABS: HEMATOCRIT 33.5 % (37-47); MEAN CELL VOLUME 95.7 fL (80-100); MEAN CORPUSCULAR HEMOGLOBIN 30.3 pg (25-34); MEAN CORPUSCULAR HGB CONC 31.6 g/dl (32-36); PLATELET COUNT 226 K/uL (130-400); WHITE BLOOD COUNT 4.48 K/uL (4.8-10.8)
[2016-12-28 13:10] LABS: CHOLESTEROL/HDL RATIO 2.5
== END | disposition home or self-care (01) ==
LOC: C.LAB1850 11:26
PROVIDERS: ATTEND Physician Assistant
DX: I25.10 Atherosclerotic heart disease of native coronary artery without angina pectoris (principal)

== ENCOUNTER → 2017-03-31 | Outpatient (CLI) | payer BC ==
[~2017-03-31] MED LIST changes: -ASPEC81 PO; +ASPI-320 PO
[2017-03-31 16:14] LABS: HEMOGLOBIN 11.5 g/dL (12.0-16.0); MEAN CELL VOLUME 97.3 fL (80-100); MEAN CORPUSCULAR HEMOGLOBIN 31.1 pg (25-34); MEAN CORPUSCULAR HGB CONC 31.9 g/dl (32-36); MEAN PLATELET VOLUME 9.4 fL (7.4-10.4); PLATELET COUNT 256 K/uL (130-400); RED CELL DISTRIBUTION WIDTH CV 12.8 % (11.5-14.5); RED CELL DISTRIBUTION WIDTH SD 45.6 fL (36.4-46.3); WHITE BLOOD COUNT 5.67 K/uL (4.8-10.8)
[2017-03-31 16:44] LABS: ALT/SGPT 20 U/L (12-78); BLOOD UREA NITROGEN 19 mg/dl (7-18); CALCIUM 9.7 mg/dl (8.5-10.1); CARBON DIOXIDE 26 mmol/L (21-32); CREATININE 1.11 mg/dl (0.60-1.20); GLUCOSE 88 mg/dl (70-99); POTASSIUM 4.2 mmol/L (3.5-5.1); SODIUM 139 mmol/L (136-145)
[2017-03-31 16:55] LABS: ALKALINE PHOSPHATASE 151 U/L (45-117); AST/SGOT 20 U/L (15-37); TOTAL PROTEIN 7.6 gm/dl (6.4-8.2)
== END | disposition home or self-care (01) ==
LOC: C.LAB1850 14:45
PROVIDERS: ATTEND Physician Assistant
DX: R53.83 Other fatigue (principal)